=== PATIENT | female | born 1945 | race Caucasian/White ===

== ENCOUNTER → 2017-11-12 | Outpatient (REF) | payer MEDICARE, BC ==
[2017-11-14 09:33] LABS: HEPATITIS C VIRUS ABY INDEX 0.1 INDEX (<0.8)
== END ==
LOC: M LAB REF 11-13 17:30
DX: Z01.89 Encounter for other specified special examinations (principal)
CPT/HCPCS: 86803

== ENCOUNTER 2018-10-11 11:23 | Inpatient (IN) | payer MEDICARE, BC ==
[~2018-10-11] VITALS: Ht 167.6 cm; Wt 68.2 kg
[~2018-10-11 11:23] MED LIST: ENOXAPARIN 40 MG/0.4 ML SYRINGE (J1650) SC SCH
[2018-10-11] MEDS ORDERED: VITA500045 PO (11:43)
[2018-10-11] MEDS ORDERED: CELE1CAP7 PO (11:43)
[2018-10-11] MEDS ORDERED: IBAN150T6 PO (11:43)
[2018-10-11 12:48] LABS: HEMATOCRIT 41.6 % (36.0-47.0); HEMOGLOBIN 13.4 g/dl (12.0-15.5); MEAN CORPUSCULAR HEMOGLOBIN 31.1 pg (27.0-33.0); MEAN CORPUSCULAR HGB CONC 32.2 g/dl (32.0-36.5); MEAN CORPUSCULAR VOLUME 96.5 fl (80.0-96.0); PLATELET COUNT, AUTOMATED 236 10^3/uL (150-450); RED BLOOD COUNT 4.31 10^6/uL (4.00-5.40); WHITE BLOOD COUNT 14.1 10^3/uL (4.0-10.0)
--- NOTE | 2018-10-11 12:56 | REP ---
PELVIS AND LEFT HIP: AP view of the pelvis and AP and crosstable lateral views of the left hip are performed. There is a comminuted fracture of the proximal left femur in the intertrochanteric region. A separate lesser trochanter fragment is displaced somewhat medially. I see no other evidence of acute fracture or dislocation. Severe arthritic changes are seen at the right hip joint with space narrowing, subchondral sclerosis and spurring. There is more moderate degree of arthritic change at the left hip joint. Electronically Signed by Gopal Centeno MD 10/14/2018 01:02 P
[2018-10-11 12:57] LABS: INR 1.07; PROTHROMBIN TIME 13.6 SECONDS (11.8-14.0)
--- NOTE | 2018-10-11 12:57 | REP ---
CHEST, SINGLE VIEW: Single view of the chest is performed. There is mild cardiomegaly. There is mild calcification and tortuosity of the thoracic aorta. No acute infiltrate is seen. There is mild left base fibroatelectatic change. Electronically Signed by Gopal Centeno MD 10/14/2018 01:03 P
[2018-10-11 12:58] LABS: PARTIAL THROMBOPLASTIN TIME 27.8 SECONDS (25.0-38.4)
[2018-10-11 13:15] LABS: ALBUMIN 3.6 GM/DL (3.2-5.2); ALT/SGPT 21 U/L (12-78); BILIRUBIN,TOTAL 0.4 MG/DL (0.2-1.0); BLOOD UREA NITROGEN 10 MG/DL (7-18); CALCIUM LEVEL 8.8 MG/DL (8.8-10.2); CARBON DIOXIDE LEVEL 27 MEQ/L (21-32); CHLORIDE LEVEL 103 MEQ/L (98-107); CREATININE FOR GFR 0.55 MG/DL (0.55-1.30); GLOMERULAR FILTRATION RATE > 60.0 (>39); GLUCOSE, FASTING 114 MG/DL (70-100); SODIUM LEVEL 139 MEQ/L (136-145); TOTAL PROTEIN 6.7 GM/DL (6.4-8.2)
[2018-10-11] MEDS ORDERED: MORPHINE 2 MG/ML 1ML SYRINGE (J2270) IV PRN (13:15)
[2018-10-11] MEDS ORDERED: NS 1,000 ML IV SCH (13:15)
[2018-10-11 13:18] LABS: CK-MB VALUE MASS 1.7 NG/ML (<3.6); CPK CREATINE PHOSPHOKINASE 85 U/L (26-192); TROPONIN I < 0.02 NG/ML (< 0.10)
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
[2018-10-11] MEDS ORDERED: ACETAMINOPHEN TAB 650MG DOSE (2X325MG) PO PRN ×2 (14:30→22:00)
[2018-10-11] MEDS ORDERED: PERCOCET 5MG/325MG TAB PO PRN ×2 (14:30→21:30)
--- NOTE | 2018-10-11 14:31 | REP ---
LEFT FEMUR: Two views. HISTORY: Rule out fracture. FINDINGS: AP and lateral views of the mid and distal femur show no additional fracture in this patient with an intertrochanteric fracture of the proximal femur. IMPRESSION: The mid and distal femur are intact. Electronically Signed by Oswald Pedraza MD 10/11/2018 08:15 P
[2018-10-11] MEDS ORDERED: CENT1TAB PO (14:34)
[2018-10-11] MEDS ORDERED: GLUCTAB6 PO ×2 (14:34)
[2018-10-11] MEDS ORDERED: TYLE650T35 PO (14:34)
--- NOTE | 2018-10-11 14:59 | HPE ---
DATE OF ADMISSION: 10/11/2018 PRIMARY CARE PROVIDER: Dr. Eben Rincon UNIFORMER: Dr. Max Ramon, Orthopedics ATTENDING PHYSICIAN: Dr. Elizalde CHIEF COMPLAINT: Left hip pain after fall. HISTORY OF PRESENT ILLNESS: The patient is a 73-year-old white female without significant past medical history presented to the hospital for a fall. She had lost her balance. She fell in her driveway and then has horrible pain in her left hip. No syncope episode. In the emergency room (ER), she had x-ray done, which demonstrated she has a left hip fracture. Orthopedics was consulted in the ER and planned for surgery. Meanwhile, medicine service called for admission. REVIEW OF SYSTEMS: Denies fever. No chills. No headache. No blurred vision. No shortness of breath. No chest pain. No abdominal pain. No tingling, numbness, or weakness in the arms. All other systems reviewed, but negative. PAST MEDICAL HISTORY: 1. Arthritis. 2. Osteoporosis. PAST SURGICAL HISTORY: Dilation and curettage. ALLERGIES: NO KNOWN DRUG ALLERGIES. SOCIAL HISTORY: She smokes cigarettes half a pack a day for many years, which is ongoing. No alcohol abuse. No illicit drug abuse. She lives with at home. FAMILY HISTORY: Reviewed and noncontributory. MEDICATIONS: Reviewed. PHYSICAL EXAMINATION: VITAL SIGNS: Temperature 96.7. Heart rate 77. Respiratory rate 18. Blood pressure 168/77. Oxygen saturation 97% on room air. GENERAL: She is awake, alert, oriented times three. She is not in acute distress. HEENT: Atraumatic. Pupils equal, round, reactive to light. No jaundice. Extraocular muscles intact. Ears, nose, throat, mouth normal. NECK: No jugular venous distention (JVD). No bruits. LUNGS: Clear. No wheezing. No crackles. HEART: S1, S2. Regular. No murmur. ABDOMEN: Soft. Bowel sounds positive. Nontender. LOWER EXTREMITIES: No edema in bilateral lower extremities. She does have shortened and externally rotated left lower extremity. SKIN: No rash. NEUROLOGIC: Nonfocal. PSYCHOLOGIC: No acute psychosis. No agitation. DIAGNOSTIC AND LAB STUDIES (include the following): CBC and differential with WBC 14, hemoglobin and hematocrit 13.4/.41.6, platelets 236. Sodium 139, potassium 4.0, chloride 103, bicarbonate 27, BUN 10, creatinine 0.5, glucose 114, and PT/INR normal. X-rays reviewed showed a left hip fracture. IMPRESSION AND PLAN: This is a 73-year-old white female with no significant past medical history presents to the hospital with left hip pain after a fall. In the ER, x-ray demonstrated she had a left hip fracture. Dr. Ramon from orthopedic service consulted and plans for surgery. She will be on the medicine floor. Lovenox will be used for deep venous thrombosis (DVT) prophylaxis and will control her pain too.She is medically cleared for possible hip surgery. JERMAIN
[2018-10-11] MEDS ORDERED: fentaNYL 100 MCG/2 ML INJECTION (J3010) As Ordered ONE ×2 (19:18→21:24)
[2018-10-11] MEDS ORDERED: MIDAZOLAM INJ 2 MG/2 ML VIAL (J2250) As Ordered ONE (19:18)
[2018-10-11] MEDS ORDERED: KETAMINE HCL 200 MG/20 ML VIAL As Ordered ONE (19:18)
[2018-10-11] MEDS ORDERED: LIDOCAINE 2% INJ 100 MG/5 ML SDV (FOR ANES.) As Ordered ONE (19:19)
[2018-10-11] MEDS ORDERED: ONDANSETRON 4MG/2ML VIAL (J2405) As Ordered ONE (19:19)
[2018-10-11] MEDS ORDERED: PROPOFOL 200 MG/20 ML VIAL As Ordered ONE ×2 (19:19→20:43)
[2018-10-11] MEDS ORDERED: ceFAZolin 2 GM/D5W 50 ML IV BAG (J0690 PER 500MG) As Ordered ONE (19:37)
[2018-10-11] MEDS ORDERED: ceFAZolin 1GM INJ (J0690 PER 500MG) As Ordered ONE (19:54)
--- NOTE | 2018-10-11 20:38 | ECGEPIP ---
[facility] - ED Test Date: 2018-10-11 Pat Name: LALO TONY Department: Room: - Gender: Female Investigations Director: PMO : 1945 Requested By: NILSON Vargas Order Number: [id number] Reading MD: Raad Mckeon Measurements Intervals [place]ock Rate: 80 P: 66 UT: 149 QRS: QRSD: 82 T: 40 QT: 375 QTc: 435 Interpretive Statements SINUS RHYTHM LEFTWARD AXIS NONSPECIFIC ST T WAVE CHANGES POOR R WAVE PROGRESSION BASELINE ARTIFACT MAY AFFECT READING NO PRIOR ECG FOR COMPARISON Electronically Signed on 10-11-2018 20:38:39 EDT by Raad Mckeon
[2018-10-11] MEDS ORDERED: DOCUSATE SODIUM 100 MG CAP PO SCH (21:00)
[2018-10-11] MEDS: fentaNYL 100 MCG/2 ML INJECTION (J3010) IV PRN ×4 (21:25→21:41)
[2018-10-11] MEDS ORDERED: ONDANSETRON 4MG/2ML VIAL (J2405) IV PRN ×2 (21:30→22:15)
[2018-10-11] MEDS ORDERED: LR 1,000 ML IV SCH (21:30)
[2018-10-11] MEDS ORDERED: HYDROMORPHONE HCL 0.5 MG/ 0.5 ML SYRINGE (J1170 PER 1) IV PRN (21:30)
[2018-10-11] MEDS ORDERED: METOCLOPRAMIDE INJ 10MG/2ML VIAL (J2765) IV PRN (21:30)
[2018-10-11] MEDS ORDERED: HYDROMORPHONE HCL 0.5 MG/ 0.5 ML SYRINGE (J1170 PER 1) As Ordered ONE (21:39)
[2018-10-11] MEDS ORDERED: FLEET ENEMA PR PRN (22:00)
[2018-10-11] MEDS ORDERED: NORCO, ANEXSIA 5/325MG TABLET (HYDROcodone/ACETAMINOPHEN) PO PRN (22:15)
[2018-10-11] MEDS ORDERED: MORPHINE 4 MG/ML 1ML VIAL/SYRINGE (J2270) IV PRN ×2 (22:15)
[2018-10-11 23:00] VITALS: BP 156/79
[2018-10-12] MEDS: LR 1,000 ML IV SCH ×2 (00:18→11:20)
[2018-10-12 01:35] VITALS: BP 156/82
[2018-10-12 02:36] VITALS: BP 147/78
[2018-10-12 03:16] VITALS: BP 142/79
[2018-10-12 05:55] VITALS: BP 127/65
[2018-10-12] MEDS ORDERED: traMADol 50 MG TAB PO PRN (06:15)
[2018-10-12] MEDS ORDERED: KETOROLAC 30 MG/ML VIAL (J1885) IV PRN (06:15)
[2018-10-12] MEDS: METOCLOPRAMIDE 5 MG TAB PO SCH ×4 (06:33→21:50)
[2018-10-12 06:44] LABS: HEMATOCRIT 31.5 % (36.0-47.0); MEAN CORPUSCULAR VOLUME 93.8 fl (80.0-96.0); PLATELET COUNT, AUTOMATED 195 10^3/uL (150-450); RED BLOOD COUNT 3.36 10^6/uL (4.00-5.40); WHITE BLOOD COUNT 14.9 10^3/uL (4.0-10.0)
[2018-10-12 06:48] LABS: HEMOGLOBIN 10.4 g/dl (12.0-15.5)
[2018-10-12 07:16] LABS: ALT/SGPT 19 U/L (12-78); BILIRUBIN,TOTAL 0.7 MG/DL (0.2-1.0); BLOOD UREA NITROGEN 10 MG/DL (7-18); CALCIUM LEVEL 7.7 MG/DL (8.8-10.2); CARBON DIOXIDE LEVEL 24 MEQ/L (21-32); CHLORIDE LEVEL 102 MEQ/L (98-107); CREATININE FOR GFR 0.48 MG/DL (0.55-1.30); GLOMERULAR FILTRATION RATE > 60.0 (>39); GLUCOSE, FASTING 139 MG/DL (70-100); POTASSIUM SERUM 4.1 MEQ/L (3.5-5.1); SODIUM LEVEL 135 MEQ/L (136-145)
--- NOTE | 2018-10-12 08:39 | IPN ---
DATE: 10/12/2018 Patient seen and examined this morning. She seems to be doing reasonably well. She is a smoker a pack to half a pack a day she says. I explained her that this will significantly impacts the healing and significantly increase the chances of it not healing and going onto a nonunion and requiring further surgeries. I explained her that the smoking disrupts the small blood vessels that provide healing to the bone. She is well aware of this.
--- NOTE | 2018-10-12 08:48 | IPNPDOC ---
Date Seen The patient was seen on 10/12/18. Progress Note SUBJECTIVE: 73 y female fall at home and has left hip fracture underwent for surgery yesterday doing well no events overnight Review of systems no fever no chills no chest pain no abdominal pain +left hip pain OBJECTIVE PHYSICAL EXAMINATION: VITAL SIGNS: Please see below. GENERAL: AA ox3 HEENT: atraumatic CARDIOVASCULAR: s1s2 regular no murmur RESPIRATORY: clear ABDOMINAL: soft BS+ non tender EXTREMITIES: no edema, left hip surgery wound dressing clear and dry NEUROLOGICAL: non focal PSYCHOLOGICAL: no agitation LABORATORY DATA, IMAGING STUDIES, MICROBIOLOGY: Please see below. DVT prophylaxis ordered?: yes ASSESSMENT AND PLAN: left hip fracture due to fall s/p day #1 ORIF pain control PT DVT prophylaxis Ortho following VS, I&O, 24H, Fishbone Vital Signs/I&O Vital Signs Date Time Temp Pulse Resp B/P (MAP) Pulse Ox O2 Delivery O2 Flow Rate FiO2 10/12/18 05:55 97.3 72 18 127/65 (85) 91 10/12/18 01:35 2.0 10/11/18 11:23 Room Air I&O- Last 24 Hours up to 6 AM 10/12/18 06:00 Intake Total 800 ml Output Total 950 ml Balance -150 ml Laboratory Data 24H LABS Laboratory Tests 2 10/11/18 12:15: Nucleated Red Blood Cells % (auto) 0.0, Prothrombin Time 13.6, Prothromb Time International Ratio 1.07, Activated Partial Thromboplast Time 27.8, Anion Gap 9, Glomerular Filtration Rate > 60.0, Blood Urea Nitrogen 10, Creatinine 0.55, Sodium Level 139, Potassium Level 4.0, Chloride Level 103, Carbon Dioxide Level 27, Calcium Level 8.8, Aspartate Amino Transf (AST/SGOT) 22, Alanine Aminotransferase (ALT/SGPT) 21, Alkaline Phosphatase 78, Total Bilirubin 0.4, Total Protein 6.7, Albumin 3.6, Albumin/Globulin Ratio 1.16 10/11/18 12:16: Total Creatine Kinase 85, Creatine Kinase MB 1.7, Creatine Kinase MB Relative Index 2.00, Troponin I < 0.02 10/12/18 06:05: Nucleated Red Blood Cells % (auto) 0.0, Anion Gap 9, Glomerular Filtration Rate > 60.0, Blood Urea Nitrogen 10, Creatinine 0.48L, Sodium Level 135L, Potassium Level 4.1, Chloride Level 102, Carbon Dioxide Level 24, Calcium Level 7.7L, Aspartate Amino Transf (AST/SGOT) 24, Alanine Aminotransferase (ALT/SGPT) 19, Alkaline Phosphatase 63, Total Bilirubin 0.7#, Total Protein 6.0L, Albumin 3.0L, Albumin/Globulin Ratio 1.00 CBC/BMP Laboratory Tests 10/11/18 12:15 Red Blood Count 4.31, Mean Corpuscular Volume 96.5 H, Mean Corpuscular Hemoglobin 31.1, Mean Corpuscular Hemoglobin Concent 32.2, Red Cell Distribution Width 12.4, Calcium Level 8.8, Aspartate Amino Transf (AST/SGOT) 22, Alanine Aminotransferase (ALT/SGPT) 21, Alkaline Phosphatase 78, Total Bilirubin 0.4, Total Protein 6.7, Albumin 3.6 10/12/18 06:05 Red Blood Count 3.36 L, Mean Corpuscular Volume 93.8, Mean Corpuscular Hemoglobin 31.0, Mean Corpuscular Hemoglobin Concent 33.0, Red Cell Distribution Width 12.4, Calcium Level 7.7 L, Aspartate Amino Transf (AST/SGOT) 24, Alanine Aminotransferase (ALT/SGPT) 19, Alkaline Phosphatase 63, Total Bilirubin 0.7 #, Total Protein 6.0 L, Albumin 3.0 L CHRISTINA TOBIAS MD Oct 12, 2018 08:48
[2018-10-12] MEDS: MOM 30ML SUSPENSION UDC PO SCH (08:59)
[2018-10-12] MEDS: BISACODYL 10 MG SUPP PR SCH ×2 (09:00→21:00)
[2018-10-12] MEDS: MIRALAX *UNIT DOSE* 17GM PACKET PO SCH (09:00)
[2018-10-12] MEDS: traMADol 50 MG TAB PO PRN ×3 (09:01→21:51)
--- NOTE | 2018-10-12 09:21 | REP ---
Left hip: Two views obtained portably. History: Status post pinning. Comparison is made with earlier radiographs showing a comminuted intertrochanteric fracture. Findings: A femoral pin fixation device is seen across the intertrochanteric fracture holding it in good alignment. There are osteoarthritic changes at the hip. Periarticular soft tissue swelling and emphysema is seen. Lateral skin tr are noted. Impression: Status post open reduction internal fixation left hip fracture. Electronically Signed by Oswald Pedraza MD 10/12/2018 12:02 P
--- NOTE | 2018-10-12 09:48 | REP ---
Left hip: Four views. History: Open reduction internal fixation. Findings: A sequence of four fluoroscopically obtained intraprocedural spot radiographs document open reduction internal fixation procedure. 1 minute 30 seconds of fluoroscopy time is reported. Electronically Signed by Oswald Pedraza MD 10/12/2018 12:04 P
[2018-10-12 14:44] VITALS: BP 113/61
[2018-10-12] MEDS: RIVAROXABAN 10 MG TAB (XARELTO) PO SCH (17:18)
[2018-10-12 22:00] VITALS: BP 120/66
[2018-10-13] MEDS: LR 1,000 ML IV SCH (00:40)
[2018-10-13] MEDS: traMADol 50 MG TAB PO PRN ×3 (05:42→20:53)
[2018-10-13 06:00] VITALS: BP 134/61
[2018-10-13 07:20] LABS: HEMATOCRIT 27.5 % (36.0-47.0); MEAN CORPUSCULAR HEMOGLOBIN 31.7 pg (27.0-33.0); MEAN CORPUSCULAR HGB CONC 32.7 g/dl (32.0-36.5); MEAN CORPUSCULAR VOLUME 96.8 fl (80.0-96.0); PLATELET COUNT, AUTOMATED 160 10^3/uL (150-450); RED BLOOD COUNT 2.84 10^6/uL (4.00-5.40); WHITE BLOOD COUNT 11.8 10^3/uL (4.0-10.0)
[2018-10-13] MEDS: MIRALAX *UNIT DOSE* 17GM PACKET PO SCH (09:00)
[2018-10-13] MEDS: MOM 30ML SUSPENSION UDC PO SCH (09:00)
[2018-10-13] MEDS: BISACODYL 10 MG SUPP PR SCH ×2 (09:00→20:53)
[2018-10-13] MEDS: METOCLOPRAMIDE 5 MG TAB PO SCH ×4 (09:03→20:53)
--- NOTE | 2018-10-13 10:53 | IPNPDOC ---
Date Seen The patient was seen on 10/13/18. Progress Note SUBJECTIVE: 73 y female fall at home and has left hip fracture underwent for surgery 10/11 doing well no events overnight Review of systems no fever no chills no chest pain no abdominal pain no diarrhea OBJECTIVE PHYSICAL EXAMINATION: VITAL SIGNS: Please see below. GENERAL: AA ox3; she is working with PT in hr room HEENT: atraumatic CARDIOVASCULAR: s1s2 regular no murmur RESPIRATORY: clear ABDOMINAL: soft BS+ non tender EXTREMITIES: no edema, left hip surgery wound dressing clear and dry NEUROLOGICAL: non focal PSYCHOLOGICAL: no agitation LABORATORY DATA, IMAGING STUDIES, MICROBIOLOGY: Please see below. DVT prophylaxis ordered?: yes ASSESSMENT AND PLAN: left hip fracture due to fall s/p day #2 ORIF pain control PT DVT prophylaxis Ortho following she may go to rehab Saturday 10/14 VS, I&O, 24H, Fishbone Vital Signs/I&O Vital Signs Date Time Temp Pulse Resp B/P (MAP) Pulse Ox O2 Delivery O2 Flow Rate FiO2 10/13/18 06:12 16 10/13/18 06:00 99.6 91 134/61 (85) 92 10/12/18 07:45 2.0 10/11/18 11:23 Room Air I&O- Last 24 Hours up to 6 AM 10/13/18 05:59 Intake Total 1140 ml Output Total 2050 ml Balance -910 ml Laboratory Data 24H LABS Laboratory Tests 2 10/13/18 06:05: Nucleated Red Blood Cells % (auto) 0.0 CBC/BMP Laboratory Tests 10/13/18 06:05 Red Blood Count 2.84 L, Mean Corpuscular Volume 96.8 H, Mean Corpuscular Hemoglobin 31.7, Mean Corpuscular Hemoglobin Concent 32.7, Red Cell Distribution Width 12.5 CHRISTINA TOBIAS MD Oct 13, 2018 10:53
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
[2018-10-13 14:00] VITALS: BP 130/62
[2018-10-13] MEDS: RIVAROXABAN 10 MG TAB (XARELTO) PO SCH (17:10)
[2018-10-13 22:00] VITALS: BP 127/66
[2018-10-14 06:00] VITALS: BP 121/65
[2018-10-14 07:07] LABS: HEMATOCRIT 25.8 % (36.0-47.0); HEMOGLOBIN 8.6 g/dl (12.0-15.5); MEAN CORPUSCULAR HEMOGLOBIN 31.3 pg (27.0-33.0); MEAN CORPUSCULAR HGB CONC 33.3 g/dl (32.0-36.5); MEAN CORPUSCULAR VOLUME 93.8 fl (80.0-96.0); PLATELET COUNT, AUTOMATED 171 10^3/uL (150-450); RED BLOOD COUNT 2.75 10^6/uL (4.00-5.40); WHITE BLOOD COUNT 10.9 10^3/uL (4.0-10.0)
[2018-10-14] MEDS: METOCLOPRAMIDE 5 MG TAB PO SCH (07:30)
[2018-10-14] MEDS ORDERED: PERC5TAB12 PO (08:15)
[2018-10-14] MEDS ORDERED: XARE10TA PO (08:15)
--- NOTE | 2018-10-14 08:43 | IPN ---
DATE: 10/14/2018 Sari is seen on 5 felix while rounding for the hospitalist. She is status post left hip fracture underwent left open reduction, internal fixation (ORIF) on 10/11/2018. She has been medically stable. Medical history was significant only for some arthritis and osteoporosis. PHYSICAL EXAM: Vital signs stable, 121/65. Lungs: Clear. Heart: Regular rate and rhythm. Abdomen: Soft, nontender. No peripheral edema. LABS: White count 10.9, hemoglobin 8.6, which is fairly stable, platelets are 170. IMPRESSION: Patient is medically stable status post ORIF for left hip fracture. First consideration of her going to short-term rehab, which we will discuss at case management today.
[2018-10-14] MEDS: MIRALAX *UNIT DOSE* 17GM PACKET PO SCH (09:00)
[2018-10-14] MEDS: BISACODYL 10 MG SUPP PR SCH (09:00)
[2018-10-14] MEDS: MOM 30ML SUSPENSION UDC PO SCH (09:30)
[2018-10-14] MEDS: traMADol 50 MG TAB PO PRN (09:31)
--- NOTE | 2018-10-14 10:42 | DSES ---
DATE OF ADMISSION: 10/11/2018 DATE OF DISCHARGE: DISCHARGE DIAGNOSIS: Left hip fracture status post open reduction internal fixation (ORIF). SECONDARY DIAGNOSES: Acute blood loss anemia secondary to fracture. HISTORY: The patient fell and fractured her left hip. HOSPITAL COURSE: The patient was admitted under the hospitalist service and underwent ORIF on 10/11/2018. Hospital course was uncomplicated. Her hemoglobin 8.6, probably from bleeding around the fracture. Did not require subcutaneous transfusion. DISPOSITION: She is transferred to the acute rehabilitation unit (ARU) and Tylenol as needed, vitamin D 50,000 units weekly, glucosamine daily, Ibandronate 150 mg monthly. She is on Xarelto 10 mg daily for a month, Percocet as needed, Tylenol as needed. Diet as tolerated. Activity as tolerated per orthopedics. No pending labs.
== END 2018-10-14 11:40 | DRG 481 ==
LOC: M ED 11:23 → M ED INP 14:28 → M MS5PR 22:50
PROVIDERS: ADMIT Hospitalist; ATTEND Family Medicine
PROC: 0QS706Z Reposition Left Upper Femur with Intramedullary Internal Fixation Device, Open Approach (ICD-10-PCS; principal; 2018-10-11 18:45)
DX: S72.142A Displaced intertrochanteric fracture of left femur, initial encounter for closed fracture (principal); D62 Acute posthemorrhagic anemia; F17.210 Nicotine dependence, cigarettes, uncomplicated; M81.0 Age-related osteoporosis without current pathological fracture; V03.10XA Pedestrian on foot injured in collision with car, pick-up truck or van in traffic accident, initial encounter; Y92.014 Private driveway to single-family (private) house as the place of occurrence of the external cause; Z79.899 Other long term (current) drug therapy

== ENCOUNTER 2018-10-14 10:07 | Inpatient (IN) | payer MEDICARE, BC ==
[~2018-10-14] VITALS: Ht 170.2 cm; Wt 67.8 kg
[~2018-10-14 10:07] MED LIST changes: +CELE1CAP7 PO; +CENT1TAB PO; -ENOXAPARIN 40 MG/0.4 ML SYRINGE (J1650) SC SCH; +GLUCTAB6 PO; +IBAN150T6 PO; +PERC5TAB12 PO; +TYLE650T35 PO; +VITA500045 PO; +XARE10TA PO
--- NOTE | 2018-10-14 11:01 | HPEPDOC ---
Application Helper Note DATE OF ADMISSION: 10/14/18 SOURCE OF ADMISSION INFORMATION: patient and [facility] records CHIEF COMPLAINT: left hip fracture HISTORY OF PRESENT ILLNESS: 73F F pmh osteoporosis and osteoarthritis who fell because her was backing up in the driveway, inadvertently hit her and she fell onto her left side presented to [facility] ED on October 11, 2018 complaining of pain and difficulty walking. She denied pre-syncopal symptoms. Pelvic X-ray revealed, There is a comminuted fracture of the proximal left femur in the intertrochanteric region. A separate lesser trochanter fragment is displaced somewhat medially. Chest x- ray showed no acute infiltrate and a mild left base fibroatelectatic change.She was evaluated by orthopedics who performed an ORIF on October 11, 2018 with femoral pin fixation. Given her fracture was comminuted she was made partial weight bearing. She had leukocytosis during her inpatient stay and a drop in her hemoglobin from 13.4 pre-op to 8.6 on POD#3. She was evaluated by therapy and found to require assistance with ambulation and functional transfers in addition to ADL management well below her prior level of function. She was deemed medically appropriate for discharge to ARU on 10/14/18. REVIEW OF SYSTEMS: The following is a completed review of systems and has been reviewed. Review of systems otherwise unremarkable. PAIN: Patient self reports left hip pain EYES: No recent vision changes EARS, NOSE, & THROAT: No throat pain, or dysphagia, or rhinorrhea CARDIOVASCULAR: Denies chest pain or palpitations PULMONARY: Denies shortness of breath GASTROINTESTINAL: Denies constipation/diarrhea GENITOURINARY: denies dysuria MUSCULOSKELETAL: LLE weakness NEUROLOGICAL: no tremors or seizure-like activity HEMATOLOGICAL: +anemia SKIN: left hip incision PSYCHIATRIC: Unremarkable All other review of systems found to be negative. PAST MEDICAL HISTORY: as per HPI PAST SURGICAL HISTORY: D&C ALLERGIES: Please see below. MEDICATIONS: Please see below. FAMILY HISTORY: does not pertain to current medical problem SOCIAL HISTORY: +1/2 pack a day smoker, no etoh abuse or illicit drugs, lives with DIET: regular PHYSICAL EXAMINATION: VITAL SIGNS: Please see below. GENERAL: Pleasant and cooperative. No acute distress. HEENT: PERRL. Extraocular movements intact. Clear conjunctiva CARDIOVASCULAR: Regular rate and rhythm. No murmurs, rubs, or gallops LUNGS: Clear to auscultation bilaterally. No wheezes. No rhonchi ABDOMEN: Soft, nontender, nondistended. Positive bowel sounds. Normal active bowel sounds NEUROLOGICAL: Alert and oriented times three. Cranial nerves II through XII grossly intact. Sensation grossly intact EXTREMITIES:5\5 strength bilateral upper extremities. 5\5 strength right lower extremity. 5/5 strength in left ankle Dr and EHL, limited due to recent surgery left heel TTP without skin changes SKIN: left hip incision without induration, mild swelling and erythema LABORATORY DATA: Please see below. IMAGING:Imaging documentation personally reviewed by record FUNCTIONAL STATUS: Premorbid: Independent with all activities of daily life as well as mobility On Admission: Contact guard 30 feet with RW, min assist for functional transfers, requiring assistance with lower body dressing and bed mobility GOALS: Mod-I with RW for community distances, uneven terrain, stairs, bathing, dressing, toileting, medical optimization, assess for DMEs. ASSESSMENT:73-year-old F with past medical history of osteoporosis who presents status post fall with left hip fracture PLAN: 1. Rehab: PT- strengthen bilat LE, improve balance and coordination- PWB to LLE, OT- teach adaptive equipment use for bathing, dressing, strengthen bilat UE and maintain shoulder ROM 2. Ortho: s/p fall with left commuinuted femur fracture- PWB, will consult ortho 3. Neuro: stable, avoid deliriogenic meds 4. Cardiac: no known hx, medicine consulted to assist with management 5. Resp: encourage incentive spirometry, current smoker, monitor for infection 6. DVT ppx: Xarelto 7. Pain: significant post-op pain, c/u oxycodone and tylenol, lidoderm patch to corey of left heel 8. : monitor PVRs 9. Skin: dressing changes, monitor for skin breakdown 10. Heme: post-op anemia, transfuse if <8, will check FOBT 11. GI ppx: will add protonix 12. Dispo: TBD POST ADMISSION PHYSICIAN EVALUATION: Medical and functional status: Description of medical status, medical assessment: As above. Rehabilitation diagnosis and current and prior cold morbid medical conditions as above. Risk of complications and plans to mitigate them as above. Description of functional status current status is as above. Prior status as above. Status compared to preadmission: There are no clinically significant differences between the patient's current status and the information described on the preadmission screening document. Treatment plan anticipated: Treatment plan is as described above. Required disciplines including physical therapy, occupational therapy, others as noted above. Intensity of services: 3 hours a day, 6 days a week. Special considerations: There are no specific special or safety considerations that would likely preclude immediate implementation of an intensive rehabilitation program or subsequently influence the plan of care ATTESTATION: Considering all the information above, it is my best judgment that this patient requires intensive rehabilitation therapy as described above and an inpatient hospital environment due to the complexity of nursing, medical, and rehabilitation needs required by the patient. Furthermore, this patient can reasonably be expected to participate in an benefit from an inpatient rehabilitation stay with an interdisciplinary team approach to the delivery of rehabilitation care under the direction and supervision of rehabilitation physician. PROGNOSIS: Excellent ESTIMATED LENGTH OF STAY:10-12 days. PROJECTED DISCHARGE DESTINATION: Home with family support and any durable medical equipment required to increase functional safety and mobility TIME SPENT COUNSELING AND COORDINATING INITIAL CARE: Greater than 70 minutes. Vital Signs Vital Signs Date Time Temp Pulse Resp B/P (MAP) Pulse Ox O2 Delivery O2 Flow Rate FiO2 10/14/18 11:40 98.9 76 18 138/71 (93) 94 Home Medications Scheduled Acetaminophen (Tylenol Arthritis) 650 Mg Tablet.er, 650 MG PO QHS, (Reported) Ergocalciferol (Vitamin D2) (Vitamin D2) 50,000 Unit Capsule, 50,000 UNIT PO QWEEK, (Reported) SUNDAYS Gluc Ibanez/Chondro Ibanez A/Vit C/Mn (Glucosamine Chondroitin Tab) 1 Each Tablet, 4 TAB PO QAM, (Reported) Gluc Ibanez/Chondro Ibanez A/Vit C/Mn (Glucosamine Chondroitin Tab) 1 Each Tablet, 3 TAB PO QPM, (Reported) Ibandronate Sodium (Ibandronate Sodium) 150 Mg Tablet, 150 MG PO QMONTH, (Reported) TAKES THE 1ST OF THE MONTH Multivit-Min/FA/Lycopen/Lutein (Centrum Silver Tablet) 1 Each Tablet, 1 TAB PO DAILY, (Reported) Rivaroxaban (Xarelto) 10 Mg Tablet, 10 MG PO DAILY Scheduled PRN Oxycodone HCl/Acetaminophen (Percocet 5-325 mg Tablet) 1 Each Tablet, 1 TAB PO Q4H PRN for PAIN Allergies Coded Allergies: No Known Allergies (Unverified , 7/12/19) A-FIB/CHADSVASC A-FIB History Current/History of A-Fib/PAF?: No KARYN ASH MD Oct 14, 2018 11:01
[2018-10-14] MEDS ORDERED: ONDANSETRON 4 MG TAB (S0181) PO PRN (11:15)
[2018-10-14] MEDS ORDERED: BISACODYL 5 MG TAB PO PRN (11:15)
[2018-10-14 11:40] VITALS: BP 138/71
[2018-10-14] MEDS: FERROUS GLUCONATE 324 MG TAB PO SCH ×2 (12:43→20:05)
[2018-10-14] MEDS: DOCUSATE SODIUM 100 MG CAP PO SCH ×2 (12:43→20:05)
[2018-10-14] MEDS: PANTOPRAZOLE 40MG TAB (PROTONIX) PO SCH (12:43)
[2018-10-14 14:00] VITALS: BP 146/75
[2018-10-14] MEDS: RIVAROXABAN 10 MG TAB (XARELTO) PO SCH (17:09)
[2018-10-14] MEDS: ACETAMINOPHEN 500 MG TAB PO SCH ×2 (17:09→20:06)
[2018-10-14 20:00] VITALS: BP 148/66
[2018-10-14] MEDS: SENNA 8.6 MG TAB (SENOKOT) PO SCH (20:05)
[2018-10-14] MEDS: LIDOCAINE 5% (LIDODERM) PATCH TD SCH (20:05)
[2018-10-15 06:00] VITALS: BP 121/65
[2018-10-15 06:36] LABS: BASO % 0.3 % (0.0-1.0); EOS # 0.2 10^3/uL (0.0-0.50); EOS % 1.6 % (0.0-3.0); HEMATOCRIT 27.4 % (36.0-47.0); HEMOGLOBIN 8.9 g/dl (12.0-15.5); LYMPH # 1.9 10^3/uL (1.5-4.5); LYMPH % 20.4 % (24.0-44.0); MEAN CORPUSCULAR HEMOGLOBIN 31.7 pg (27.0-33.0); MEAN CORPUSCULAR HGB CONC 32.5 g/dl (32.0-36.5); MEAN CORPUSCULAR VOLUME 97.5 fl (80.0-96.0); MONO # 1.1 10^3/uL (0.0-0.8); MONO % 11.2 % (0.0-5.0); NEUTROPHILS # 6.2 10^3/uL (1.8-7.7); NEUTROPHILS % 66.2 % (36.0-66.0); PLATELET COUNT, AUTOMATED 213 10^3/uL (150-450); RED BLOOD COUNT 2.81 10^6/uL (4.00-5.40); WHITE BLOOD COUNT 9.4 10^3/uL (4.0-10.0)
[2018-10-15 07:09] LABS: ALBUMIN 2.5 GM/DL (3.2-5.2); ALT/SGPT 23 U/L (12-78); BILIRUBIN,TOTAL 0.8 MG/DL (0.2-1.0); BLOOD UREA NITROGEN 8 MG/DL (7-18); CALCIUM LEVEL 8.4 MG/DL (8.8-10.2); CARBON DIOXIDE LEVEL 35 MEQ/L (21-32); CHLORIDE LEVEL 104 MEQ/L (98-107); GLOMERULAR FILTRATION RATE > 60.0 (>39); GLUCOSE, FASTING 91 MG/DL (70-100); POTASSIUM SERUM 3.7 MEQ/L (3.5-5.1); SODIUM LEVEL 140 MEQ/L (136-145); TOTAL PROTEIN 5.8 GM/DL (6.4-8.2)
[2018-10-15] MEDS: DOCUSATE SODIUM 100 MG CAP PO SCH ×2 (09:21→20:56)
[2018-10-15] MEDS: FERROUS GLUCONATE 324 MG TAB PO SCH ×2 (09:21→20:56)
[2018-10-15] MEDS: PANTOPRAZOLE 40MG TAB (PROTONIX) PO SCH (09:21)
[2018-10-15] MEDS: ACETAMINOPHEN 500 MG TAB PO SCH ×3 (09:22→20:57)
[2018-10-15] MEDS: oxyCODONE 5MG TAB PO PRN (09:23)
[2018-10-15] MEDS: **NOTE PATIENT COMMENT** MISC XX SCH (09:25)
--- NOTE | 2018-10-15 10:13 | IPNPDOC ---
PM&R Progress Note DATE OF SERVICE: Oct 15, 2018 Coil Tier Progress Note SUbjective: Patient seen walking in OT, stating her pain is well controlled at this time. REVIEW OF SYSTEMS: The following is a completed review of systems and has been reviewed. Review of systems otherwise unremarkable. PAIN: Patient self reports left hip pain EYES: No recent vision changes EARS, NOSE, & THROAT: No throat pain, or dysphagia, or rhinorrhea CARDIOVASCULAR: Denies chest pain or palpitations PULMONARY: Denies shortness of breath GASTROINTESTINAL: Denies constipation/diarrhea GENITOURINARY: denies dysuria MUSCULOSKELETAL: LLE weakness NEUROLOGICAL: no tremors or seizure-like activity HEMATOLOGICAL: +anemia SKIN: left hip incision PSYCHIATRIC: Unremarkable All other review of systems found to be negative. PHYSICAL EXAMINATION: VITAL SIGNS: Please see below. GENERAL: Pleasant and cooperative. No acute distress. HEENT: PERRL. Extraocular movements intact. Clear conjunctiva CARDIOVASCULAR: Regular rate and rhythm. No murmurs, rubs, or gallops LUNGS: Clear to auscultation bilaterally. No wheezes. No rhonchi ABDOMEN: Soft, nontender, nondistended. Positive bowel sounds. Normal active bowel sounds NEUROLOGICAL: Alert and oriented times three. Cranial nerves II through XII grossly intact. Sensation grossly intact EXTREMITIES:5\5 strength bilateral upper extremities. 5\5 strength right lower extremity. 5/5 strength in left ankle Dr and EHL, limited due to recent surgery left heel TTP without skin changes SKIN: left hip incision without induration, mild swelling and erythema ASSESSMENT:73-year-old F with past medical history of osteoporosis who presents status post fall with left hip fracture PLAN: 1. Rehab: PT- strengthen bilat LE, improve balance and coordination- PWB to LLE, OT- teach adaptive equipment use for bathing, dressing, strengthen bilat UE and maintain shoulder ROM 2. Ortho: s/p fall with left comminuted femur fracture- PWB, will consult ortho 3. Neuro: stable, avoid deliriogenic meds 4. Cardiac: no known hx, medicine consulted to assist with management 5. Resp: encourage incentive spirometry, current smoker, monitor for infection 6. DVT ppx: Xarelto 7. Pain: significant post-op pain, c/u oxycodone and tylenol, lidoderm patch to corey of left heel 8. : monitor PVRs 9. Skin: dressing changes, monitor for skin breakdown 10. Heme: post-op anemia, transfuse if <8, will check FOBT 11. GI ppx: continue protonix 12. Dispo: TBD Allergies Coded Allergies: No Known Allergies (Unverified , 10/11/18) Vital Signs Vital Signs Date Time Temp Pulse Resp B/P (MAP) Pulse Ox O2 Delivery O2 Flow Rate FiO2 10/15/18 09:23 18 10/15/18 06:00 98.4 73 121/65 (83) 94 Laboratory Data CBC/BMP Laboratory Tests 10/15/18 05:58 Red Blood Count 2.81 L, Mean Corpuscular Volume 97.5 H, Mean Corpuscular Hemoglobin 31.7, Mean Corpuscular Hemoglobin Concent 32.5, Red Cell Distribution Width 12.7, Neutrophils (%) (Auto) 66.2 H, Lymphocytes (%) (Auto) 20.4 L, Monocytes (%) (Auto) 11.2 H, Eosinophils (%) (Auto) 1.6, Basophils (%) (Auto) 0.3, Neutrophils # (Auto) 6.2, Lymphocytes # (Auto) 1.9, Monocytes # (Auto) 1.1 H, Eosinophils # (Auto) 0.2, Basophils # (Auto) 0.0, Calcium Level 8.4 L, Aspartate Amino Transf (AST/SGOT) 28, Alanine Aminotransferase (ALT/SGPT) 23, Alkaline Phosphatase 58, Total Bilirubin 0.8, Total Protein 5.8 L, Albumin 2.5 L Labs 24H Laboratory Tests 2 10/15/18 05:58: Immature Granulocyte % (Auto) 0.3, White Blood Count 9.4, Red Blood Count 2.81L, Hemoglobin 8.9L, Hematocrit 27.4L, Mean Corpuscular Volume 97.5H, Mean Corpuscular Hemoglobin 31.7, Mean Corpuscular Hemoglobin Concent 32.5, Red Cell Distribution Width 12.7, Platelet Count 213, Neutrophils (%) (Auto) 66.2H, Lymphocytes (%) (Auto) 20.4L, Monocytes (%) (Auto) 11.2H, Eosinophils (%) (Auto) 1.6, Basophils (%) (Auto) 0.3, Neutrophils # (Auto) 6.2, Lymphocytes # (Auto) 1.9, Monocytes # (Auto) 1.1H, Eosinophils # (Auto) 0.2, Basophils # (Auto) 0.0, Nucleated Red Blood Cells % (auto) 0.0, Anion Gap 1L, Glomerular Filtration Rate > 60.0, Blood Urea Nitrogen 8, Creatinine 0.40L, Sodium Level 140, Potassium Level 3.7, Chloride Level 104, Carbon Dioxide Level 35H, Calcium Level 8.4L, Aspartate Amino Transf (AST/SGOT) 28, Alanine Aminotransferase (ALT/SGPT) 23, Alkaline Phosphatase 58, Total Bilirubin 0.8, Total Protein 5.8L, Albumin 2.5L, Albumin/Globulin Ratio 0.76L Current Medications Current Medications Current Medications Acetaminophen (Tylenol Tab) 1,000 mg TID PO Last administered on 10/15/18 09:22; Start 10/14/18 at 16:00 Bisacodyl (Dulcolax Tab) 5 mg DAILYPRN PRN PO CONSTIPATION Last administered on 10/15/18 09:23; Start 10/14/18 at 11:15 Docusate Sodium (Colace) 100 mg BID PO Last administered on 10/15/18 09:21; Start 10/14/18 at 09:00 Ferrous Gluconate (Fergon) 324 mg BID PO Last administered on 10/15/18 09:21; Start 10/14/18 at 09:00 Lidocaine (Lidoderm Patch) 1 patch QHS TD Last administered on 10/14/18 20:05; Start 10/14/18 at 21:00 Non-Formulary Medication ( See Comment Field Below ) REMOVE LIDODERM PATCH DAILY XX Last administered on 10/15/18 09:25; Start 10/15/18 at 09:00 Ondansetron HCl (Zofran) 4 mg Q6HP PRN PO NAUSEA; Start 10/14/18 at 11:15 Oxycodone HCl (Roxicodone, Oxyir) 5 mg Q4HP PRN PO PAIN Last administered on 10/15/18 09:23; Start 10/14/18 at 16:15 Pantoprazole Sodium (Protonix) 40 mg DAILY PO Last administered on 10/15/18 09:21; Start 10/14/18 at 09:00 Rivaroxaban (Xarelto) 10 mg DAILY@1800 PO Last administered on 10/14/18at 17:09; Start 10/14/18 at 18:00 Senna (Senokot) 1 tab QHS PO Last administered on 10/14/18at 20:05; Start 10/14/18 at 21:00 KARYN ASH MD Oct 15, 2018 10:13
--- NOTE | 2018-10-15 11:05 | CR ---
DATE OF CONSULTATION: 10/15/2018 This is a medicine consultation on Sari Lugo. She has a relatively uncomplicated medical history. She had a left hip fracture and underwent open reduction, internal fixation (ORIF) on 10/11/2018. PAST MEDICAL HISTORY: Essentially benign. Vitamin D deficiency and osteoporosis. OUTPATIENT MEDICATIONS: - Ibandronate 150 mg monthly - calcium with vitamin D - glucosamine REVIEW OF SYSTEMS: No abdominal pain. PHYSICAL EXAMINATION: VITAL SIGNS: Stable. LUNGS: Clear HEART: Regular rhythm. ABDOMEN: Soft, nontender. EXTREMITIES: No peripheral edema. LABORATORIES: Reviewed and are unremarkable, unchanged from when she was on acute care. IMPRESSION: The patient has osteoporosis, vitamin D deficiency. She is seen in rehab. She does not have any medical issues that require closer attention at this point.
[2018-10-15] MEDS ORDERED: ACETAMINOPHEN TAB 650MG DOSE (2X325MG) PO PRN (12:15)
[2018-10-15 14:00] VITALS: BP 124/59
[2018-10-15] MEDS: RIVAROXABAN 10 MG TAB (XARELTO) PO SCH (17:22)
[2018-10-15 20:00] VITALS: BP_SYST 120; BP_DIAS 60; BP_DIAS 96
[2018-10-15] MEDS: SENNA 8.6 MG TAB (SENOKOT) PO SCH (20:56)
[2018-10-15] MEDS: LIDOCAINE 5% (LIDODERM) PATCH TD SCH (20:57)
[2018-10-16] MEDS: oxyCODONE 5MG TAB PO PRN ×2 (05:25→13:50)
[2018-10-16 06:00] VITALS: BP 140/68
[2018-10-16 06:41] LABS: BASO # 0.1 10^3/uL (0.0-0.2); BASO % 0.7 % (0.0-1.0); EOS # 0.2 10^3/uL (0.0-0.50); HEMATOCRIT 26.9 % (36.0-47.0); HEMOGLOBIN 8.7 g/dl (12.0-15.5); LYMPH # 1.5 10^3/uL (1.5-4.5); LYMPH % 18.2 % (24.0-44.0); MEAN CORPUSCULAR HGB CONC 32.3 g/dl (32.0-36.5); MEAN CORPUSCULAR VOLUME 95.7 fl (80.0-96.0); MONO % 12.1 % (0.0-5.0); NEUTROPHILS # 5.6 10^3/uL (1.8-7.7); NEUTROPHILS % 66.8 % (36.0-66.0); PLATELET COUNT, AUTOMATED 266 10^3/uL (150-450); RED BLOOD COUNT 2.81 10^6/uL (4.00-5.40); WHITE BLOOD COUNT 8.4 10^3/uL (4.0-10.0)
[2018-10-16 07:07] LABS: BLOOD UREA NITROGEN 11 MG/DL (7-18); CALCIUM LEVEL 8.4 MG/DL (8.8-10.2); CARBON DIOXIDE LEVEL 30 MEQ/L (21-32); CHLORIDE LEVEL 105 MEQ/L (98-107); CREATININE FOR GFR 0.37 MG/DL (0.55-1.30); GLOMERULAR FILTRATION RATE > 60.0 (>39); GLUCOSE, FASTING 95 MG/DL (70-100); POTASSIUM SERUM 3.7 MEQ/L (3.5-5.1); SODIUM LEVEL 141 MEQ/L (136-145)
[2018-10-16] MEDS: ACETAMINOPHEN 500 MG TAB PO SCH ×3 (08:39→20:04)
[2018-10-16] MEDS: FERROUS GLUCONATE 324 MG TAB PO SCH ×2 (08:39→20:03)
[2018-10-16] MEDS: PANTOPRAZOLE 40MG TAB (PROTONIX) PO SCH (08:40)
[2018-10-16] MEDS: **NOTE PATIENT COMMENT** MISC XX SCH (08:40)
[2018-10-16] MEDS: DOCUSATE SODIUM 100 MG CAP PO SCH ×2 (08:40→20:04)
--- NOTE | 2018-10-16 10:13 | IPNPDOC ---
PM&R Progress Note DATE OF SERVICE: Oct 16, 2018 Para Machine Operator Progress Note Subjective: Patient states her pain is relatively well controlled and wondering is she should try a lower dose of tylenol. REVIEW OF SYSTEMS: The following is a completed review of systems and has been reviewed. Review of systems otherwise unremarkable. PAIN: Patient self reports left hip pain EYES: No recent vision changes EARS, NOSE, & THROAT: No throat pain, or dysphagia, or rhinorrhea CARDIOVASCULAR: Denies chest pain or palpitations PULMONARY: Denies shortness of breath GASTROINTESTINAL: Denies constipation/diarrhea GENITOURINARY: denies dysuria MUSCULOSKELETAL: LLE weakness NEUROLOGICAL: no tremors or seizure-like activity HEMATOLOGICAL: +anemia SKIN: left hip incision PSYCHIATRIC: Unremarkable All other review of systems found to be negative. PHYSICAL EXAMINATION: VITAL SIGNS: Please see below. GENERAL: Pleasant and cooperative. No acute distress. HEENT: PERRL. Extraocular movements intact. Clear conjunctiva CARDIOVASCULAR: Regular rate and rhythm. No murmurs, rubs, or gallops LUNGS: Clear to auscultation bilaterally. No wheezes. No rhonchi ABDOMEN: Soft, nontender, nondistended. Positive bowel sounds. Normal active bowel sounds NEUROLOGICAL: Alert and oriented times three. Cranial nerves II through XII grossly intact. Sensation grossly intact EXTREMITIES:5\5 strength bilateral upper extremities. 5\5 strength right lower extremity. 5/5 strength in left ankle Dr and EHL, limited due to recent surgery left heel TTP without skin changes SKIN: left hip incision without induration, mild swelling and erythema ASSESSMENT:73-year-old F with past medical history of osteoporosis who presents status post fall with left hip fracture PLAN: 1. Rehab: PT- strengthen bilat LE, improve balance and coordination- PWB to LLE, OT- teach adaptive equipment use for bathing, dressing, strengthen bilat UE and maintain shoulder ROM 2. Ortho: s/p fall with left comminuted femur fracture- PWB, will consult ortho 3. Neuro: stable, avoid deliriogenic meds 4. Cardiac: no known hx, medicine consulted to assist with management 5. Resp: encourage incentive spirometry, current smoker, monitor for infection, declining nicotine patch 6. DVT ppx: Xarelto 7. Pain: significant post-op pain, c/u oxycodone and tylenol, lidoderm patch to back of left heel 8. : monitor PVRs 9. Skin: dressing changes, monitor for skin breakdown 10. Heme: post-op anemia, transfuse if <8, will check FOBT 11. GI ppx: continue protonix 12. Dispo: TBD Allergies Coded Allergies: No Known Allergies (Unverified , 10/11/18) Vital Signs Vital Signs Date Time Temp Pulse Resp B/P (MAP) Pulse Ox O2 Delivery O2 Flow Rate FiO2 10/16/18 06:00 97.8 77 18 140/68 (92) 97 Laboratory Data CBC/BMP Laboratory Tests 10/16/18 06:04 Red Blood Count 2.81 L, Mean Corpuscular Volume 95.7, Mean Corpuscular Hemoglobin 31.0, Mean Corpuscular Hemoglobin Concent 32.3, Red Cell Distribution Width 13.0, Neutrophils (%) (Auto) 66.8 H, Lymphocytes (%) (Auto) 18.2 L, Monocytes (%) (Auto) 12.1 H, Eosinophils (%) (Auto) 2.0, Basophils (%) (Auto) 0.7, Neutrophils # (Auto) 5.6, Lymphocytes # (Auto) 1.5, Monocytes # (Auto) 1.0 H, Eosinophils # (Auto) 0.2, Basophils # (Auto) 0.1, Calcium Level 8.4 L Labs 24H Laboratory Tests 2 10/16/18 06:04: Immature Granulocyte % (Auto) 0.2, White Blood Count 8.4, Red Blood Count 2.81L, Hemoglobin 8.7L, Hematocrit 26.9L, Mean Corpuscular Volume 95.7, Mean Corpuscular Hemoglobin 31.0, Mean Corpuscular Hemoglobin Concent 32.3, Red Cell Distribution Width 13.0, Platelet Count 266, Neutrophils (%) (Auto) 66.8H, Lymphocytes (%) (Auto) 18.2L, Monocytes (%) (Auto) 12.1H, Eosinophils (%) (Auto) 2.0, Basophils (%) (Auto) 0.7, Neutrophils # (Auto) 5.6, Lymphocytes # (Auto) 1.5, Monocytes # (Auto) 1.0H, Eosinophils # (Auto) 0.2, Basophils # (Auto) 0.1, Nucleated Red Blood Cells % (auto) 0.0, Anion Gap 6L, Glomerular Filtration Rate > 60.0, Blood Urea Nitrogen 11, Creatinine 0.37L, Sodium Level 141, Potassium Level 3.7, Chloride Level 105, Carbon Dioxide Level 30, Calcium Level 8.4L Current Medications Current Medications Current Medications Acetaminophen (Tylenol Tab) 650 mg Q24HP PRN PO PAIN / FEVER; Start 10/15/18 at 12:15 Acetaminophen (Tylenol Tab) 1,000 mg TID PO Last administered on 10/16/18 08:39; Start 10/14/18 at 16:00 Bisacodyl (Dulcolax Tab) 5 mg DAILYPRN PRN PO CONSTIPATION Last administered on 10/15/18 09:23; Start 10/14/18 at 11:15 Docusate Sodium (Colace) 100 mg BID PO Last administered on 10/16/18 08:40; Start 10/14/18 at 09:00 Ferrous Gluconate (Fergon) 324 mg BID PO Last administered on 10/16/18 08:39; Start 10/14/18 at 09:00 Lidocaine (Lidoderm Patch) 1 patch QHS TD Last administered on 10/15/18 20:57; Start 10/14/18 at 21:00 Non-Formulary Medication ( See Comment Field Below ) REMOVE LIDODERM PATCH DAILY XX Last administered on 10/16/18 08:40; Start 10/15/18 at 09:00 Ondansetron HCl (Zofran) 4 mg Q6HP PRN PO NAUSEA; Start 10/14/18 at 11:15 Oxycodone HCl (Roxicodone, Oxyir) 5 mg Q4HP PRN PO PAIN Last administered on 10/16/18 05:25; Start 10/14/18 at 16:15 Pantoprazole Sodium (Protonix) 40 mg DAILY PO Last administered on 10/16/18 08:40; Start 10/14/18 at 09:00 Rivaroxaban (Xarelto) 10 mg DAILY@1800 PO Last administered on 10/15/18 17:22; Start 10/14/18 at 18:00 Senna (Senokot) 1 tab QHS PO Last administered on 10/15/18 20:56; Start 10/14/18 at 21:00 KARYN ASH MD Oct 16, 2018 10:13
[2018-10-16 14:00] VITALS: BP 154/78
[2018-10-16] MEDS: RIVAROXABAN 10 MG TAB (XARELTO) PO SCH (16:37)
[2018-10-16 20:00] VITALS: BP 118/55
[2018-10-16] MEDS: SENNA 8.6 MG TAB (SENOKOT) PO SCH (20:03)
[2018-10-16] MEDS: LIDOCAINE 5% (LIDODERM) PATCH TD SCH (20:05)
[2018-10-17] MEDS: oxyCODONE 5MG TAB PO PRN ×3 (04:29→18:05)
[2018-10-17 06:18] VITALS: BP 148/76
[2018-10-17] MEDS: FERROUS GLUCONATE 324 MG TAB PO SCH ×2 (08:06→21:03)
[2018-10-17] MEDS: PANTOPRAZOLE 40MG TAB (PROTONIX) PO SCH (08:06)
[2018-10-17] MEDS: ACETAMINOPHEN 500 MG TAB PO SCH ×3 (08:06→21:03)
[2018-10-17] MEDS: **NOTE PATIENT COMMENT** MISC XX SCH (08:06)
[2018-10-17] MEDS: DOCUSATE SODIUM 100 MG CAP PO SCH ×2 (08:06→21:03)
[2018-10-17 14:00] VITALS: BP 148/68
[2018-10-17] MEDS: RIVAROXABAN 10 MG TAB (XARELTO) PO SCH (17:14)
[2018-10-17 20:00] VITALS: BP 132/62
[2018-10-17] MEDS: LIDOCAINE 5% (LIDODERM) PATCH TD SCH (21:00)
[2018-10-17] MEDS: SENNA 8.6 MG TAB (SENOKOT) PO SCH (21:03)
[2018-10-18] MEDS: oxyCODONE 5MG TAB PO PRN ×2 (03:57→08:41)
[2018-10-18 05:51] VITALS: BP 137/68
[2018-10-18] MEDS: FERROUS GLUCONATE 324 MG TAB PO SCH ×2 (08:34→20:10)
[2018-10-18] MEDS: DOCUSATE SODIUM 100 MG CAP PO SCH ×2 (08:34→20:10)
[2018-10-18] MEDS: PANTOPRAZOLE 40MG TAB (PROTONIX) PO SCH (08:34)
[2018-10-18] MEDS: ACETAMINOPHEN 500 MG TAB PO SCH ×4 (08:34→20:10)
[2018-10-18] MEDS: **NOTE PATIENT COMMENT** MISC XX SCH (08:35)
[2018-10-18 10:14] LABS: BASO # 0.1 10^3/uL (0.0-0.2); BASO % 0.5 % (0.0-1.0); EOS # 0.2 10^3/uL (0.0-0.50); EOS % 2.4 % (0.0-3.0); HEMATOCRIT 29.1 % (36.0-47.0); HEMOGLOBIN 9.3 g/dl (12.0-15.5); LYMPH # 1.6 10^3/uL (1.5-4.5); MEAN CORPUSCULAR HEMOGLOBIN 31.8 pg (27.0-33.0); MEAN CORPUSCULAR VOLUME 99.7 fl (80.0-96.0); MONO # 1.1 10^3/uL (0.0-0.8); MONO % 11.8 % (0.0-5.0); NEUTROPHILS # 6.2 10^3/uL (1.8-7.7); NEUTROPHILS % 67.9 % (36.0-66.0); PLATELET COUNT, AUTOMATED 361 10^3/uL (150-450); RED BLOOD COUNT 2.92 10^6/uL (4.00-5.40); WHITE BLOOD COUNT 9.2 10^3/uL (4.0-10.0)
[2018-10-18 10:39] LABS: BLOOD UREA NITROGEN 11 MG/DL (7-18); CARBON DIOXIDE LEVEL 30 MEQ/L (21-32); CHLORIDE LEVEL 102 MEQ/L (98-107); CREATININE FOR GFR 0.49 MG/DL (0.55-1.30); GLOMERULAR FILTRATION RATE > 60.0 (>39); GLUCOSE, FASTING 80 MG/DL (70-100); POTASSIUM SERUM 3.5 MEQ/L (3.5-5.1); SODIUM LEVEL 140 MEQ/L (136-145)
[2018-10-18] MEDS: GABAPENTIN 100 MG CAP PO SCH ×3 (11:00→20:10)
--- NOTE | 2018-10-18 11:09 | IPNPDOC ---
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 She is also open to trying Gabapentin to help offset her need for opioids. REVIEW OF SYSTEMS: The following is a completed review of systems and has been reviewed. Review of systems otherwise unremarkable. PAIN: Patient self reports left hip pain EYES: No recent vision changes EARS, NOSE, & THROAT: No throat pain, or dysphagia, or rhinorrhea CARDIOVASCULAR: Denies chest pain or palpitations PULMONARY: Denies shortness of breath GASTROINTESTINAL: Denies constipation/diarrhea GENITOURINARY: denies dysuria MUSCULOSKELETAL: LLE weakness NEUROLOGICAL: no tremors or seizure-like activity HEMATOLOGICAL: +anemia SKIN: left hip incision PSYCHIATRIC: Unremarkable All other review of systems found to be negative. PHYSICAL EXAMINATION: VITAL SIGNS: Please see below. GENERAL: Pleasant and cooperative. No acute distress. HEENT: PERRL. Extraocular movements intact. Clear conjunctiva CARDIOVASCULAR: Regular rate and rhythm. No murmurs, rubs, or gallops LUNGS: Clear to auscultation bilaterally. No wheezes. No rhonchi ABDOMEN: Soft, nontender, nondistended. Positive bowel sounds. Normal active bowel sounds NEUROLOGICAL: Alert and oriented times three. Cranial nerves II through XII grossly intact. Sensation grossly intact EXTREMITIES:5\5 strength bilateral upper extremities. 5\5 strength right lower extremity. 5/5 strength in left ankle Dr and EHL, limited due to recent surgery left heel TTP without skin changes SKIN: left hip incision without induration, mild swelling and erythema ASSESSMENT:73-year-old F with past medical history of osteoporosis who presents status post fall with left hip fracture PLAN: 1. Rehab: PT- strengthen bilat LE, improve balance and coordination- PWB to LLE, OT- teach adaptive equipment use for bathing, dressing, strengthen bilat UE and maintain shoulder ROM 2. Ortho: s/p fall with left comminuted femur fracture- PWB, will consult ortho 3. Neuro: stable, avoid deliriogenic meds 4. Cardiac: no known hx, medicine consulted to assist with management 5. Resp: encourage incentive spirometry, current smoker, monitor for infection, declining nicotine patch 6. DVT ppx: Xarelto 7. Pain: significant post-op pain, c/u oxycodone and Tylenol, Lidoderm patch to back of left heel, add gabapentin 100mg TID 8. : monitor PVRs 9. Skin: dressing changes, monitor for skin breakdown 10. Heme: post-op anemia, transfuse if <8, stable at 9 11. GI ppx: continue protonix 12. Dispo: TBD Allergies Coded Allergies: No Known Allergies (Unverified , 10/11/18) Vital Signs Vital Signs Date Time Temp Pulse Resp B/P (MAP) Pulse Ox O2 Delivery O2 Flow Rate FiO2 10/18/18 08:41 18 10/18/18 05:51 98.5 75 137/68 (91) 95 Laboratory Data CBC/BMP Laboratory Tests 10/18/18 10:06 Red Blood Count 2.92 L, Mean Corpuscular Volume 99.7 H, Mean Corpuscular Hemoglobin 31.8, Mean Corpuscular Hemoglobin Concent 32.0, Red Cell Distribution Width 13.8, Neutrophils (%) (Auto) 67.9 H, Lymphocytes (%) (Auto) 17.0 L, Monocytes (%) (Auto) 11.8 H, Eosinophils (%) (Auto) 2.4, Basophils (%) (Auto) 0.5, Neutrophils # (Auto) 6.2, Lymphocytes # (Auto) 1.6, Monocytes # (Auto) 1.1 H, Eosinophils # (Auto) 0.2, Basophils # (Auto) 0.1, Calcium Level 9.0 Labs 24H Laboratory Tests 2 10/18/18 10:06: Immature Granulocyte % (Auto) 0.4, White Blood Count 9.2, Red Blood Count 2.92L, Hemoglobin 9.3L, Hematocrit 29.1L, Mean Corpuscular Volume 99.7H, Mean Corpuscular Hemoglobin 31.8, Mean Corpuscular Hemoglobin Concent 32.0, Red Cell Distribution Width 13.8, Platelet Count 361, Neutrophils (%) (Auto) 67.9H, Lymphocytes (%) (Auto) 17.0L, Monocytes (%) (Auto) 11.8H, Eosinophils (%) (Auto) 2.4, Basophils (%) (Auto) 0.5, Neutrophils # (Auto) 6.2, Lymphocytes # (Auto) 1.6, Monocytes # (Auto) 1.1H, Eosinophils # (Auto) 0.2, Basophils # (Auto) 0.1, Nucleated Red Blood Cells % (auto) 0.0, Anion Gap 8, Glomerular Filtration Rate > 60.0, Blood Urea Nitrogen 11, Creatinine 0.49L, Sodium Level 140, Potassium Level 3.5, Chloride Level 102, Carbon Dioxide Level 30, Calcium Level 9.0 Current Medications Current Medications Current Medications Acetaminophen (Tylenol Tab) 650 mg Q24HP PRN PO PAIN / FEVER; Start 10/15/18 at 12:15; Stop 10/18/18 at 09:14; Status DC Acetaminophen (Tylenol Tab) 1,000 mg QID PO ; Start 10/18/18 at 13:00 Acetaminophen (Tylenol Tab) 1,000 mg TID PO Last administered on 10/18/18 08:34; Start 10/14/18 at 16:00; Stop 10/18/18 at 09:14; Status DC Bisacodyl (Dulcolax Tab) 5 mg DAILYPRN PRN PO CONSTIPATION Last administered on 10/15/18at 09:23; Start 10/14/18 at 11:15 Docusate Sodium (Colace) 100 mg BID PO Last administered on 10/18/18 08:34; Start 10/14/18 at 09:00 Ferrous Gluconate (Fergon) 324 mg BID PO Last administered on 10/18/18 08:34; Start 10/14/18 at 09:00 Gabapentin (Neurontin) 100 mg TID PO Last administered on 10/18/18 11:00; Start 10/18/18 at 09:00 Lidocaine (Lidoderm Patch) 1 patch QHS TD Last administered on 10/16/18at 20:05; Start 10/14/18 at 21:00 Non-Formulary Medication ( See Comment Field Below ) REMOVE LIDODERM PATCH DAILY XX Last administered on 10/18/18 08:35; Start 10/15/18 at 09:00 Ondansetron HCl (Zofran) 4 mg Q6HP PRN PO NAUSEA; Start 10/14/18 at 11:15 Oxycodone HCl (Roxicodone, Oxyir) 5 mg Q4HP PRN PO PAIN Last administered on 10/18/18 08:41; Start 10/14/18 at 16:15; Stop 10/18/18 at 09:45; Status DC Pantoprazole Sodium (Protonix) 40 mg DAILY PO Last administered on 10/18/18at 08:34; Start 10/14/18 at 09:00 Rivaroxaban (Xarelto) 10 mg DAILY@1800 PO Last administered on 10/17/18at 17:14; Start 10/14/18 at 18:00; Stop 11/18/18 at 17:59 Senna (Senokot) 1 tab QHS PO Last administered on 10/17/18at 21:03; Start 10/14/18 at 21:00 KARYN ASH MD Oct 18, 2018 11:09
[2018-10-18 14:00] VITALS: BP 117/62
[2018-10-18] MEDS: RIVAROXABAN 10 MG TAB (XARELTO) PO SCH (18:07)
[2018-10-18 20:00] VITALS: BP 128/60
[2018-10-18] MEDS: SENNA 8.6 MG TAB (SENOKOT) PO SCH (20:10)
[2018-10-18] MEDS: LIDOCAINE 5% (LIDODERM) PATCH TD SCH (20:11)
[2018-10-19 06:40] VITALS: BP 157/70
[2018-10-19 07:16] LABS: BASO # 0.1 10^3/uL (0.0-0.2); BASO % 0.7 % (0.0-1.0); EOS # 0.3 10^3/uL (0.0-0.50); EOS % 3.8 % (0.0-3.0); HEMATOCRIT 28.7 % (36.0-47.0); HEMOGLOBIN 9.4 g/dl (12.0-15.5); LYMPH # 1.3 10^3/uL (1.5-4.5); LYMPH % 18.6 % (24.0-44.0); MEAN CORPUSCULAR HGB CONC 32.8 g/dl (32.0-36.5); MEAN CORPUSCULAR VOLUME 100.7 fl (80.0-96.0); MONO # 0.8 10^3/uL (0.0-0.8); MONO % 12.2 % (0.0-5.0); NEUTROPHILS # 4.4 10^3/uL (1.8-7.7); NEUTROPHILS % 64.3 % (36.0-66.0); PLATELET COUNT, AUTOMATED 391 10^3/uL (150-450); RED BLOOD COUNT 2.85 10^6/uL (4.00-5.40); WHITE BLOOD COUNT 6.8 10^3/uL (4.0-10.0)
[2018-10-19] MEDS: GABAPENTIN 100 MG CAP PO SCH ×3 (07:52→20:46)
[2018-10-19] MEDS: FERROUS GLUCONATE 324 MG TAB PO SCH ×2 (07:52→20:46)
[2018-10-19] MEDS: ACETAMINOPHEN 500 MG TAB PO SCH ×4 (07:52→20:47)
[2018-10-19] MEDS: DOCUSATE SODIUM 100 MG CAP PO SCH ×2 (07:52→20:25)
[2018-10-19] MEDS: PANTOPRAZOLE 40MG TAB (PROTONIX) PO SCH (07:53)
[2018-10-19] MEDS: **NOTE PATIENT COMMENT** MISC XX SCH (07:54)
[2018-10-19 14:00] VITALS: BP 145/65
[2018-10-19] MEDS: RIVAROXABAN 10 MG TAB (XARELTO) PO SCH (16:52)
[2018-10-19 20:00] VITALS: BP 115/59
[2018-10-19] MEDS: SENNA 8.6 MG TAB (SENOKOT) PO SCH (20:25)
[2018-10-19] MEDS: LIDOCAINE 5% (LIDODERM) PATCH TD SCH (20:47)
[2018-10-20 06:00] VITALS: BP 148/71
[2018-10-20] MEDS: GABAPENTIN 100 MG CAP PO SCH ×3 (06:17→21:59)
[2018-10-20] MEDS: ACETAMINOPHEN 500 MG TAB PO SCH ×4 (06:18→22:00)
[2018-10-20] MEDS: **NOTE PATIENT COMMENT** MISC XX SCH (09:00)
[2018-10-20] MEDS: DOCUSATE SODIUM 100 MG CAP PO SCH ×2 (09:00→21:00)
[2018-10-20] MEDS: PANTOPRAZOLE 40MG TAB (PROTONIX) PO SCH (09:08)
[2018-10-20] MEDS: FERROUS GLUCONATE 324 MG TAB PO SCH ×2 (09:08→21:59)
[2018-10-20 14:00] VITALS: BP 133/61
[2018-10-20] MEDS: RIVAROXABAN 10 MG TAB (XARELTO) PO SCH (17:16)
[2018-10-20 20:00] VITALS: BP 115/59
[2018-10-20] MEDS: LIDOCAINE 5% (LIDODERM) PATCH TD SCH (21:00)
[2018-10-20] MEDS: SENNA 8.6 MG TAB (SENOKOT) PO SCH (21:00)
[2018-10-21 06:00] VITALS: BP 121/70
[2018-10-21] MEDS: FERROUS GLUCONATE 324 MG TAB PO SCH ×2 (08:31→20:09)
[2018-10-21] MEDS: DOCUSATE SODIUM 100 MG CAP PO SCH ×2 (08:31→20:09)
[2018-10-21] MEDS: ACETAMINOPHEN 500 MG TAB PO SCH ×4 (08:32→20:11)
[2018-10-21] MEDS: GABAPENTIN 100 MG CAP PO SCH ×3 (08:32→20:09)
[2018-10-21] MEDS: PANTOPRAZOLE 40MG TAB (PROTONIX) PO SCH (08:32)
[2018-10-21] MEDS: **NOTE PATIENT COMMENT** MISC XX SCH (08:33)
[2018-10-21] MEDS: oxyCODONE 5MG TAB PO PRN (12:54)
[2018-10-21 14:00] VITALS: BP 126/62
[2018-10-21] MEDS: RIVAROXABAN 10 MG TAB (XARELTO) PO SCH (17:41)
[2018-10-21 20:00] VITALS: BP 134/62
[2018-10-21] MEDS: SENNA 8.6 MG TAB (SENOKOT) PO SCH (20:09)
[2018-10-21] MEDS: LIDOCAINE 5% (LIDODERM) PATCH TD SCH (20:12)
[2018-10-22] MEDS: oxyCODONE 5MG TAB PO PRN ×2 (01:38→10:59)
[2018-10-22 06:00] VITALS: BP 138/70
[2018-10-22] MEDS: PANTOPRAZOLE 40MG TAB (PROTONIX) PO SCH (08:39)
[2018-10-22] MEDS: GABAPENTIN 100 MG CAP PO SCH ×3 (08:40→20:41)
[2018-10-22] MEDS: ACETAMINOPHEN 500 MG TAB PO SCH ×4 (08:40→20:42)
[2018-10-22] MEDS: FERROUS GLUCONATE 324 MG TAB PO SCH ×2 (08:40→20:41)
[2018-10-22] MEDS: DOCUSATE SODIUM 100 MG CAP PO SCH ×2 (08:42→20:41)
[2018-10-22] MEDS: **NOTE PATIENT COMMENT** MISC XX SCH (08:42)
[2018-10-22 14:00] VITALS: BP 156/74
--- NOTE | 2018-10-22 16:49 | IPNPDOC ---
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 REVIEW OF SYSTEMS: The following is a completed review of systems and has been reviewed. Review of systems otherwise unremarkable. PAIN: Patient self reports left hip pain EYES: No recent vision changes EARS, NOSE, & THROAT: No throat pain, or dysphagia, or rhinorrhea CARDIOVASCULAR: Denies chest pain or palpitations PULMONARY: Denies shortness of breath GASTROINTESTINAL: Denies constipation/diarrhea GENITOURINARY: denies dysuria MUSCULOSKELETAL: LLE weakness NEUROLOGICAL: no tremors or seizure-like activity HEMATOLOGICAL: +anemia SKIN: left hip incision PSYCHIATRIC: Unremarkable All other review of systems found to be negative. PHYSICAL EXAMINATION: VITAL SIGNS: Please see below. GENERAL: Pleasant and cooperative. No acute distress. HEENT: PERRL. Extraocular movements intact. Clear conjunctiva CARDIOVASCULAR: Regular rate and rhythm. No murmurs, rubs, or gallops LUNGS: Clear to auscultation bilaterally. No wheezes. No rhonchi ABDOMEN: Soft, nontender, nondistended. Positive bowel sounds. Normal active bowel sounds NEUROLOGICAL: Alert and oriented times three. Cranial nerves II through XII grossly intact. Sensation grossly intact EXTREMITIES:5\5 strength bilateral upper extremities. 5\5 strength right lower extremity. 5/5 strength in left ankle Dr and EHL, limited due to recent surgery left heel TTP without skin changes SKIN: left hip incision without induration, mild swelling and erythema ASSESSMENT:73-year-old F with past medical history of osteoporosis who presents status post fall with left hip fracture PLAN: 1. Rehab: advancing to Mod-I with mobility limited by difficulty getting out of bed, will consider room privileges once she becomes more comfortable with this -PT- strengthen bilat LE, improve balance and coordination- PWB to LLE, OT- teach adaptive equipment use for bathing, dressing, strengthen bilat UE and ma intain shoulder ROM 2. Ortho: s/p fall with left comminuted femur fracture- PWB, will consult ortho 3. Neuro: stable, avoid deliriogenic meds 4. Cardiac: no known hx, medicine consulted to assist with management 5. Resp: encourage incentive spirometry, current smoker, monitor for infection, declining nicotine patch 6. DVT ppx: Xarelto 7. Pain: significant post-op pain, c/u oxycodone and Tylenol, patient requesting no more Lidoderm patch to left heel, c/u gabapentin 100mg TID 8. : monitor PVRs 9. Skin: dressing changes, monitor for skin breakdown 10. Heme: post-op anemia, transfuse if <8, stable at 9 11. GI ppx: continue protonix 12. Dispo:10/25/18 to home, progressing towards goals Allergies Coded Allergies: No Known Allergies (Unverified , 10/11/18) Vital Signs Vital Signs Date Time Temp Pulse Resp B/P (MAP) Pulse Ox O2 Delivery O2 Flow Rate FiO2 10/22/18 14:00 98.3 72 14 156/74 (101) 98 Current Medications Current Medications Current Medications Acetaminophen (Tylenol Tab) 650 mg Q24HP PRN PO PAIN / FEVER; Start 10/15/18 at 12:15; Stop 10/18/18 at 09:14; Status DC Acetaminophen (Tylenol Tab) 1,000 mg QID PO Last administered on 10/22/18at 12:03; Start 10/18/18 at 13:00 Acetaminophen (Tylenol Tab) 1,000 mg TID PO Last administered on 10/18/18at 08:34; Start 10/14/18 at 16:00; Stop 10/18/18 at 09:14; Status DC Bisacodyl (Dulcolax Tab) 5 mg DAILYPRN PRN PO CONSTIPATION Last administered on 10/15/18at 09:23; Start 10/14/18 at 11:15 Docusate Sodium (Colace) 100 mg BID PO Last administered on 10/21/18at 20:09; Start 10/14/18 at 09:00 Ferrous Gluconate (Fergon) 324 mg BID PO Last administered on 10/22/18at 08:40; Start 10/14/18 at 09:00 Gabapentin (Neurontin) 100 mg TID PO Last administered on 10/22/18at 08:40; Start 10/18/18 at 09:00 Lidocaine (Lidoderm Patch) 1 patch QHS TD Last administered on 10/16/18at 20:05; Start 10/14/18 at 21:00 Non-Formulary Medication ( See Comment Field Below ) REMOVE LIDODERM PATCH DAILY XX Last administered on 10/21/18 08:33; Start 10/15/18 at 09:00 Ondansetron HCl (Zofran) 4 mg Q6HP PRN PO NAUSEA; Start 10/14/18 at 11:15 Oxycodone HCl (Roxicodone, Oxyir) 5 mg Q4HP PRN PO PAIN Last administered on 10/18/18 08:41; Start 10/14/18 at 16:15; Stop 10/18/18 at 09:45; Status DC Oxycodone HCl (Roxicodone, Oxyir) 5 mg Q6HP PRN PO PAIN Last administered on 10/22/18 10:59; Start 10/21/18 at 11:30 Pantoprazole Sodium (Protonix) 40 mg DAILY PO Last administered on 10/22/18 08:39; Start 10/14/18 at 09:00 Rivaroxaban (Xarelto) 10 mg DAILY@1800 PO Last administered on 10/21/18 17:41; Start 10/14/18 at 18:00; Stop 11/18/18 at 17:59 Senna (Senokot) 1 tab QHS PO Last administered on 10/21/18 20:09; Start 10/14/18 at 21:00 KARYN ASH MD Oct 22, 2018 16:49
[2018-10-22] MEDS: RIVAROXABAN 10 MG TAB (XARELTO) PO SCH (17:31)
[2018-10-22] MEDS: oxyCODONE 5MG TAB PO SCH (17:31)
[2018-10-22] MEDS: LIDOCAINE 5% (LIDODERM) PATCH TD SCH (20:40)
[2018-10-22] MEDS: ANALGESIC BALM CRM 120 GM TOP SCH (20:41)
[2018-10-22] MEDS: SENNA 8.6 MG TAB (SENOKOT) PO SCH (20:41)
[2018-10-23 05:45] VITALS: BP 123/59
[2018-10-23] MEDS ORDERED: XARE10TA PO (06:02)
[2018-10-23] MEDS: oxyCODONE 5MG TAB PO SCH ×3 (06:15→17:48)
[2018-10-23 07:25] LABS: BASO % 0.5 % (0.0-1.0); EOS # 0.2 10^3/uL (0.0-0.50); EOS % 2.5 % (0.0-3.0); HEMATOCRIT 28.4 % (36.0-47.0); HEMOGLOBIN 8.9 g/dl (12.0-15.5); LYMPH # 1.6 10^3/uL (1.5-4.5); LYMPH % 19.4 % (24.0-44.0); MEAN CORPUSCULAR HEMOGLOBIN 31.1 pg (27.0-33.0); MEAN CORPUSCULAR HGB CONC 31.3 g/dl (32.0-36.5); MEAN CORPUSCULAR VOLUME 99.3 fl (80.0-96.0); MONO # 0.8 10^3/uL (0.0-0.8); MONO % 10.1 % (0.0-5.0); NEUTROPHILS # 5.6 10^3/uL (1.8-7.7); NEUTROPHILS % 66.9 % (36.0-66.0); PLATELET COUNT, AUTOMATED 462 10^3/uL (150-450); RED BLOOD COUNT 2.86 10^6/uL (4.00-5.40); WHITE BLOOD COUNT 8.4 10^3/uL (4.0-10.0)
--- NOTE | 2018-10-23 08:03 | IPN ---
DATE: 10/21/2018 She is a 73-year-old female who had a left hip fracture and underwent open reduction internal fixation (ORIF) on 10/11/2018. Past medical history is essentially benign with vitamin D deficiency and osteoporosis. She is doing well with no medical issues. Vital signs have been stable. She had no physical complaints today, felt she was doing well. OBJECTIVE: Blood pressure 126/62, pulse 70, respirations 18, temperature 97. Patient is alert and oriented times three. Pharynx, tongue and gums are pink and moist. Tongue is midline. Neck is supple without lymphadenopathy. No thyromegaly, no goiter. Carotids 2+ without bruit. Chest is clear to auscultation without wheeze or retraction. Heart is irregular. Abdomen benign. Bowel sounds positive. /rectal not done. Extremities no cyanosis, clubbing or edema. Hip dressing in place. IMPRESSION/PLAN: Rehabilitation per Dr. Coyle. No acute medical issues.
[2018-10-23] MEDS: FERROUS GLUCONATE 324 MG TAB PO SCH ×2 (08:31→20:25)
[2018-10-23] MEDS: ACETAMINOPHEN 500 MG TAB PO SCH ×4 (08:31→20:26)
[2018-10-23] MEDS: GABAPENTIN 100 MG CAP PO SCH ×3 (08:32→20:25)
[2018-10-23] MEDS: PANTOPRAZOLE 40MG TAB (PROTONIX) PO SCH (08:32)
[2018-10-23] MEDS: DOCUSATE SODIUM 100 MG CAP PO SCH ×2 (08:32→20:25)
[2018-10-23] MEDS: **NOTE PATIENT COMMENT** MISC XX SCH (08:32)
[2018-10-23] MEDS: ANALGESIC BALM CRM 120 GM TOP SCH ×2 (08:37→20:25)
--- NOTE | 2018-10-23 10:01 | IPNPDOC ---
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 She said she slept well and had a good morn ing. REVIEW OF SYSTEMS: The following is a completed review of systems and has been reviewed. Review of systems otherwise unremarkable. PAIN: Patient self reports left hip pain EYES: No recent vision changes EARS, NOSE, & THROAT: No throat pain, or dysphagia, or rhinorrhea CARDIOVASCULAR: Denies chest pain or palpitations PULMONARY: Denies shortness of breath GASTROINTESTINAL: Denies constipation/diarrhea GENITOURINARY: denies dysuria MUSCULOSKELETAL: LLE weakness NEUROLOGICAL: no tremors or seizure-like activity HEMATOLOGICAL: +anemia SKIN: left hip incision PSYCHIATRIC: Unremarkable All other review of systems found to be negative. PHYSICAL EXAMINATION: VITAL SIGNS: Please see below. GENERAL: Pleasant and cooperative. No acute distress. HEENT: PERRL. Extraocular movements intact. Clear conjunctiva CARDIOVASCULAR: Regular rate and rhythm. No murmurs, rubs, or gallops LUNGS: Clear to auscultation bilaterally. No wheezes. No rhonchi ABDOMEN: Soft, nontender, nondistended. Positive bowel sounds. Normal active bowel sounds NEUROLOGICAL: Alert and oriented times three. Cranial nerves II through XII grossly intact. Sensation grossly intact EXTREMITIES:5\5 strength bilateral upper extremities. 5\5 strength right lower extremity. 5/5 strength in left ankle Dr and EHL, limited due to recent surgery left heel TTP without skin changes SKIN: left hip incision without induration, mild swelling and erythema ASSESSMENT:73-year-old F with past medical history of osteoporosis who presents status post fall with left hip fracture PLAN: 1. Rehab: advancing to Mod-I with mobility limited by difficulty getting out of bed, will consider room privileges once she becomes more comfortable with this -PT- strengthen bilat LE, improve balance and coordination- PWB to LLE, OT- teach adaptive equipment use for bathing, dressing, strengthen bilat UE and maintain shoulder ROM 2. Ortho: s/p fall with left comminuted femur fracture- PWB, will consult ortho 3. Neuro: stable, avoid deliriogenic meds 4. Cardiac: no known hx, medicine consulted to assist with management 5. Resp: encourage incentive spirometry, current smoker, monitor for infection, declining nicotine patch 6. DVT ppx: Xarelto 7. Pain: significant post-op pain, c/u oxycodone and Tylenol, patient requesting no more Lidoderm patch to left heel, c/u gabapentin 100mg TID 8. : monitor PVRs 9. Skin: dressing changes, monitor for skin breakdown 10. Heme: post-op anemia, transfuse if <8, stable at 9 11. GI ppx: continue protonix 12. Dispo:10/25/18 to home, progressing towards goals Allergies Coded Allergies: No Known Allergies (Unverified , 10/11/18) Vital Signs Vital Signs Date Time Temp Pulse Resp B/P (MAP) Pulse Ox O2 Delivery O2 Flow Rate FiO2 10/23/18 07:15 16 10/23/18 05:45 97.8 76 123/59 (80) 97 Laboratory Data CBC/BMP Laboratory Tests 10/23/18 06:56 Red Blood Count 2.86 L, Mean Corpuscular Volume 99.3 H, Mean Corpuscular Hemoglobin 31.1, Mean Corpuscular Hemoglobin Concent 31.3 L, Red Cell Distribution Width 15.9 H, Neutrophils (%) (Auto) 66.9 H, Lymphocytes (%) (Auto) 19.4 L, Monocytes (%) (Auto) 10.1 H, Eosinophils (%) (Auto) 2.5, Basophils (%) (Auto) 0.5, Neutrophils # (Auto) 5.6, Lymphocytes # (Auto) 1.6, Monocytes # (Auto) 0.8, Eosinophils # (Auto) 0.2, Basophils # (Auto) 0.0 Labs 24H Laboratory Tests 2 10/23/18 06:56: Immature Granulocyte % (Auto) 0.6, White Blood Count 8.4, Red Blood Count 2.86L, Hemoglobin 8.9L, Hematocrit 28.4L, Mean Corpuscular Volume 99.3H, Mean Corpuscular Hemoglobin 31.1, Mean Corpuscular Hemoglobin Concent 31.3L, Red Cell Distribution Width 15.9H, Platelet Count 462H, Neutrophils (%) (Auto) 66.9H, Lymphocytes (%) (Auto) 19.4L, Monocytes (%) (Auto) 10.1H, Eosinophils (%) (Auto) 2.5, Basophils (%) (Auto) 0.5, Neutrophils # (Auto) 5.6, Lymphocytes # (Auto) 1.6, Monocytes # (Auto) 0.8, Eosinophils # (Auto) 0.2, Basophils # (Auto) 0.0, Nucleated Red Blood Cells % (auto) 0.0 Current Medications Current Medications Current Medications Acetaminophen (Tylenol Tab) 650 mg Q24HP PRN PO PAIN / FEVER; Start 10/15/18 at 12:15; Stop 10/18/18 at 09:14; Status DC Acetaminophen (Tylenol Tab) 1,000 mg QID PO Last administered on 10/23/18 08:31; Start 10/18/18 at 13:00 Acetaminophen (Tylenol Tab) 1,000 mg TID PO Last administered on 10/18/18 08:34; Start 10/14/18 at 16:00; Stop 10/18/18 at 09:14; Status DC Bisacodyl (Dulcolax Tab) 5 mg DAILYPRN PRN PO CONSTIPATION Last administered on 10/15/18 09:23; Start 10/14/18 at 11:15 Docusate Sodium (Colace) 100 mg BID PO Last administered on 10/22/18 20:41; Start 10/14/18 at 09:00 Ferrous Gluconate (Fergon) 324 mg BID PO Last administered on 10/23/18 08:31; Start 10/14/18 at 09:00 Gabapentin (Neurontin) 100 mg TID PO Last administered on 10/22/18 08:40; Start 10/18/18 at 09:00; Stop 10/22/18 at 16:40; Status DC Gabapentin (Neurontin) 200 mg TID PO Last administered on 10/23/18 08:32; Start 10/22/18 at 16:00 Lidocaine (Lidoderm Patch) 1 patch QHS TD Last administered on 10/16/18 20:05; Start 10/14/18 at 21:00 Menthol/Methyl Salicylate (Bengay Cream) 1 dose BID TOP Last administered on 10/23/18 08:37; Start 10/22/18 at 21:00 Non-Formulary Medication ( See Comment Field Below ) REMOVE LIDODERM PATCH DAILY XX Last administered on 10/21/18 08:33; Start 10/15/18 at 09:00 Ondansetron HCl (Zofran) 4 mg Q6HP PRN PO NAUSEA; Start 10/14/18 at 11:15 Oxycodone HCl (Roxicodone, Oxyir) 5 mg Q4HP PRN PO PAIN Last administered on 10/18/18 08:41; Start 10/14/18 at 16:15; Stop 10/18/18 at 09:45; Status DC Oxycodone HCl (Roxicodone, Oxyir) 5 mg Q6HP PRN PO PAIN Last administered on 10/22/18at 10:59; Start 10/21/18 at 11:30; Stop 10/22/18 at 16:40; Status DC Oxycodone HCl (Roxicodone, Oxyir) 5 mg TID@0600,1100,1800 PO Last administered on 10/23/18 06:15; Start 10/22/18 at 18:00 Pantoprazole Sodium (Protonix) 40 mg DAILY PO Last administered on 10/23/18 08:32; Start 10/14/18 at 09:00 Rivaroxaban (Xarelto) 10 mg DAILY@1800 PO Last administered on 10/22/18 17:31; Start 10/14/18 at 18:00; Stop 11/18/18 at 17:59 Senna (Senokot) 1 tab QHS PO Last administered on 10/22/18at 20:41; Start 10/14/18 at 21:00 KARYN ASH MD Oct 23, 2018 10:01
[2018-10-23 14:00] VITALS: BP 135/65
[2018-10-23] MEDS: RIVAROXABAN 10 MG TAB (XARELTO) PO SCH (17:48)
[2018-10-23 20:00] VITALS: BP 139/65
[2018-10-23] MEDS: SENNA 8.6 MG TAB (SENOKOT) PO SCH (20:25)
[2018-10-23] MEDS: LIDOCAINE 5% (LIDODERM) PATCH TD SCH (20:26)
[2018-10-24] MEDS: oxyCODONE 5MG TAB PO SCH ×3 (05:41→17:32)
[2018-10-24 06:00] VITALS: BP 118/56
[2018-10-24] MEDS: **NOTE PATIENT COMMENT** MISC XX SCH (09:00)
[2018-10-24] MEDS: DOCUSATE SODIUM 100 MG CAP PO SCH ×2 (09:00→20:03)
[2018-10-24] MEDS: ACETAMINOPHEN 500 MG TAB PO SCH ×4 (09:04→20:04)
[2018-10-24] MEDS: PANTOPRAZOLE 40MG TAB (PROTONIX) PO SCH (09:05)
[2018-10-24] MEDS: GABAPENTIN 100 MG CAP PO SCH ×3 (09:05→20:04)
[2018-10-24] MEDS: FERROUS GLUCONATE 324 MG TAB PO SCH ×2 (09:05→20:03)
[2018-10-24] MEDS: ANALGESIC BALM CRM 120 GM TOP SCH ×2 (09:08→20:06)
--- NOTE | 2018-10-24 12:06 | IPNPDOC ---
Text Note Date of Service The patient was seen on 10/24/18. NOTE Subjective Has no complaints at time of evaluation. Ambulating in the hallway with therapy team. Denies pain Objective GENERAL: NAD SKIN : left hip incision HEENT: Atraumatic, normocephalic, PERRL, moist mucous membrane CARDIOVASCULAR: Regular rate and rhythm, S1S2, no JVD, no edema, distal pulses + palpable RESP: CTAB, no accessory muscle use noted ABDOMEN: BS+ non distended non tender MS: no joint deformities NEURO: Alert and oriented x 3, CN2-12 grossly intact PSYCH: no anxiety or agitation, appropriate mood and affect. Assessment/Plan Left Hip Fracture -rehabilitation per primary team Anemia -hemoglobin stable -monitor, transfuse for hgb<8 of hemodynamic compromise Nicotine Dependence -has been counselled on tobacco cessation DVT prophylaxis -xarelto VS,Fishbone, I+O VS, Fishbone, I+O Vital Signs Date Time Temp Pulse Resp B/P (MAP) Pulse Ox O2 Delivery O2 Flow Rate FiO2 10/24/18 11:01 18 10/24/18 06:00 98.5 72 118/56 (20) 94 I&O- Last 24 Hours up to 6 AM 10/24/18 05:59 Intake Total 1700 ml Balance 1700 ml LAVELL TRONCOSOP Oct 24, 2018 12:06
[2018-10-24 14:00] VITALS: BP 124/64
--- NOTE | 2018-10-24 16:25 | IPNPDOC ---
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 REVIEW OF SYSTEMS: The following is a completed review of systems and has been reviewed. Review of systems otherwise unremarkable. PAIN: Patient self reports left hip pain EYES: No recent vision changes EARS, NOSE, & THROAT: No throat pain, or dysphagia, or rhinorrhea CARDIOVASCULAR: Denies chest pain or palpitations PULMONARY: Denies shortness of breath GASTROINTESTINAL: Denies constipation/diarrhea GENITOURINARY: denies dysuria MUSCULOSKELETAL: LLE weakness NEUROLOGICAL: no tremors or seizure-like activity HEMATOLOGICAL: +anemia SKIN: left hip incision PSYCHIATRIC: Unremarkable All other review of systems found to be negative. PHYSICAL EXAMINATION: VITAL SIGNS: Please see below. GENERAL: Pleasant and cooperative. No acute distress. HEENT: PERRL. Extraocular movements intact. Clear conjunctiva CARDIOVASCULAR: Regular rate and rhythm. No murmurs, rubs, or gallops LUNGS: Clear to auscultation bilaterally. No wheezes. No rhonchi ABDOMEN: Soft, nontender, nondistended. Positive bowel sounds. Normal active bowel sounds NEUROLOGICAL: Alert and oriented times three. Cranial nerves II through XII grossly intact. Sensation grossly intact EXTREMITIES:5\5 strength bilateral upper extremities. 5\5 strength right lower extremity. 5/5 strength in left ankle Dr and EHL, limited due to recent surgery left heel TTP without skin changes SKIN: left hip incision without induration, mild swelling and erythema ASSESSMENT:73-year-old F with past medical history of osteoporosis who presents status post fall with left hip fracture PLAN: 1. Rehab: advancing to Mod-I with mobility and ADLs- room privileges in place -PT- strengthen bilat LE, improve balance and coordination- PWB to LLE, OT- teach adaptive equipment use for bathing, dressing, strengthen bilat UE and maintain shoulder ROM 2. Ortho: s/p fall with left comminuted femur fracture- PWB, will consult ortho 3. Neuro: stable, avoid deliriogenic meds 4. Cardiac: no known hx, medicine consulted to assist with management 5. Resp: encourage incentive spirometry, current smoker, monitor for infection, declining nicotine patch 6. DVT ppx: Xarelto 7. Pain: significant post-op pain, c/u oxycodone and Tylenol, c/u gabapentin 100mg TID 8. : monitor PVRs 9. Skin: dressing changes, monitor for skin breakdown 10. Heme: post-op anemia, transfuse if <8, stable at 9 11. GI ppx: continue protonix 12. Dispo:10/25/18 to home, progressing towards goals Allergies Coded Allergies: No Known Allergies (Unverified , 10/11/18) Vital Signs Vital Signs Date Time Temp Pulse Resp B/P (MAP) Pulse Ox O2 Delivery O2 Flow Rate FiO2 10/24/18 14:00 98.4 79 17 124/64 (84) 95 Current Medications Current Medications Current Medications Medications (Trade) Dose Ordered Sig/Iraj Route PRN Reason Start Time Stop Time Status Last Admin Dose Admin Acetaminophen (Tylenol Tab) 650 mg Q24HP PRN PO PAIN / FEVER 10/15/18 12:15 10/18/18 09:14 DC Acetaminophen (Tylenol Tab) 1,000 mg QID PO 10/18/18 13:00 10/24/18 12:43 Acetaminophen (Tylenol Tab) 1,000 mg TID PO 10/14/18 16:00 10/18/18 09:14 DC 10/18/18 08:34 Bisacodyl (Dulcolax Tab) 5 mg DAILYPRN PRN PO CONSTIPATION 10/14/18 11:15 10/15/18 09:23 Docusate Sodium (Colace) 100 mg BID PO 10/14/18 09:00 10/23/18 20:25 Ferrous Gluconate (Fergon) 324 mg BID PO 10/14/18 09:00 10/24/18 09:05 Gabapentin (Neurontin) 100 mg TID PO 10/18/18 09:00 10/22/18 16:40 DC 10/22/18 08:40 Gabapentin (Neurontin) 200 mg TID PO 10/22/18 16:00 10/24/18 15:49 Lidocaine (Lidoderm Patch) 1 patch QHS TD 10/14/18 21:00 10/16/18 20:05 Menthol/Methyl Salicylate (Bengay Cream) 1 dose BID TOP 10/22/18 21:00 10/24/18 09:08 Non-Formulary Medication ( See Comment Field Below ) REMOVE LIDODERM PATCH DAILY XX 10/15/18 09:00 10/21/18 08:33 Ondansetron HCl (Zofran) 4 mg Q6HP PRN PO NAUSEA 10/14/18 11:15 Oxycodone HCl (Roxicodone, Oxyir) 5 mg Q4HP PRN PO PAIN 10/14/18 16:15 10/18/18 09:45 DC 10/18/18 08:41 Oxycodone HCl (Roxicodone, Oxyir) 5 mg Q6HP PRN PO PAIN 10/21/18 11:30 10/22/18 16:40 DC 10/22/18 10:59 Oxycodone HCl (Roxicodone, Oxyir) 5 mg TID@0600,1100,1800 PO 10/22/18 18:00 10/24/18 11:01 Pantoprazole Sodium (Protonix) 40 mg DAILY PO 10/14/18 09:00 10/24/18 09:05 Rivaroxaban (Xarelto) 10 mg DAILY@1800 PO 10/14/18 18:00 11/18/18 17:59 10/23/18 17:48 Senna (Senokot) 1 tab QHS PO 10/14/18 21:00 10/23/18 20:25 KARYN ASH MD Oct 24, 2018 16:25
[2018-10-24] MEDS ORDERED: OXYCO5TA PO (16:28)
[2018-10-24] MEDS ORDERED: PANT40TA3 PO (16:28)
[2018-10-24] MEDS ORDERED: FERR32TA PO (16:28)
[2018-10-24] MEDS ORDERED: GABA-1171 PO (16:28)
[2018-10-24] MEDS: RIVAROXABAN 10 MG TAB (XARELTO) PO SCH (17:32)
[2018-10-24 20:00] VITALS: BP 109/52
[2018-10-24] MEDS: SENNA 8.6 MG TAB (SENOKOT) PO SCH (20:03)
[2018-10-24] MEDS: LIDOCAINE 5% (LIDODERM) PATCH TD SCH (20:04)
[2018-10-25] MEDS: oxyCODONE 5MG TAB PO SCH ×2 (05:21→12:26)
[2018-10-25 06:00] VITALS: BP 131/67
[2018-10-25] MEDS: **NOTE PATIENT COMMENT** MISC XX SCH (09:00)
[2018-10-25] MEDS: DOCUSATE SODIUM 100 MG CAP PO SCH (09:36)
[2018-10-25] MEDS: FERROUS GLUCONATE 324 MG TAB PO SCH (09:36)
[2018-10-25] MEDS: PANTOPRAZOLE 40MG TAB (PROTONIX) PO SCH (09:36)
[2018-10-25] MEDS: GABAPENTIN 100 MG CAP PO SCH (09:37)
[2018-10-25] MEDS: ANALGESIC BALM CRM 120 GM TOP SCH (09:38)
[2018-10-25] MEDS: ACETAMINOPHEN 500 MG TAB PO SCH ×2 (09:38→12:25)
--- NOTE | 2018-10-25 12:26 | REP ---
Bilateral lower extremity deep vein duplex ultrasound: The deep veins demonstrate normal compression, normal Doppler color flow and normal Doppler waveforms with respiration and augmentation from the popliteal veins to the common femoral veins bilaterally . Impression: There is no deep vein thrombus in the right lower extremity or left lower extremity. . Electronically Signed by Gopal Carreno MD 10/25/2018 12:17 P
--- NOTE | 2018-10-26 17:29 | PMRDS ---
DATE OF ADMISSION: 10/14/2018 DATE OF DISCHARGE: 10/25/2018 CHIEF COMPLAINT/DISCHARGE DIAGNOSIS: Left hip fracture. HISTORY OF PRESENT ILLNESS: A 73-year-old female with a past medical history of osteoporosis and osteoarthritis who fell because her was backing up in the driveway, inadvertently hit her, and fell onto her left side. Presented to [facility] ([facility]) Emergency Department (ED) on 10/11/2018 complaining of pain and difficulty walking. She denied presyncopal symptoms. Pelvic x-ray revealed "There is a comminuted fracture of the proximal left femur in the intertrochanteric region. A separate lesser trochanter fragment is displaced somewhat medially." Chest x-ray showed no acute infiltrate and a "mild left base fibroatelectatic change." She was evaluated by orthopedics who performed an open reduction, internal fixation (ORIF) on 10/11/2018 with femoral pin fixation. Given her fracture was comminuted, she was made partial weightbearing. She has leukocytosis during her inpatient stay and a drop in hemoglobin from 13.4 preoperatively to 8.6 on postoperative day 3. She was evaluated by therapy and found to require assistance with ambulation and functional transfers in addition to activities of daily living (ADL) management well below her prior level of function. She was deemed medically appropriate for discharge to acute rehabilitation unit (ARU) on 10/14/2018. PAST MEDICAL HISTORY: As per history of present illness (HPI). HOSPITAL COURSE: The patient was admitted and enrolled in a comprehensive physical therapy (PT)/occupational therapy (OT) program. She received 24-hour nursing supervision, and weekly team meetings were held to discuss her progress. During her hospital course, patient was noted to have an increase in her hemoglobin and hematocrit and was able to tolerate therapy. She was maintained on Xarelto for deep vein thrombosis (DVT) prophylaxis, and her postoperative pain was managed with Tylenol, oxycodone, and gabapentin. She remained hemodynamically stable throughout her hospital course, made quick gains in therapy, and was deemed medically and functionally stable to return home with outpatient therapy. DISCHARGE MEDICATIONS: As per discharge records. FUNCTIONAL HISTORY UPON DISCHARGE: The patient was modified independent with a rolling walker, able to ambulate 175 feet partial weightbearing to left lower extremity, and able to negotiate stairs. Her was trained for assistance, and in occupational therapy she was modified independent for bathing, dressing, both upper and lower body, and toileting. Thank you for this referral
== END 2018-10-25 15:40 | disposition home or self-care (01) | DRG 561 ==
LOC: M PM&R 11:40
PROVIDERS: ADMIT Physical Medicine & Rehabilitation; ATTEND Physical Medicine & Rehabilitation
DX: S72.142D Displaced intertrochanteric fracture of left femur, subsequent encounter for closed fracture with routine healing (principal); V03.10XA Pedestrian on foot injured in collision with car, pick-up truck or van in traffic accident, initial encounter; Y92.014 Private driveway to single-family (private) house as the place of occurrence of the external cause; D64.9 Anemia, unspecified; M62.81 Muscle weakness (generalized); F17.200 Nicotine dependence, unspecified, uncomplicated; M81.0 Age-related osteoporosis without current pathological fracture; Z79.899 Other long term (current) drug therapy; M19.90 Unspecified osteoarthritis, unspecified site; E55.9 Vitamin D deficiency, unspecified

== ENCOUNTER 2018-10-27 17:23 | Emergency (ER) | payer MEDICARE, BC ==
[~2018-10-27] VITALS: Ht 170.2 cm; Wt 68.2 kg
[~2018-10-27 17:23] MED LIST changes: +FERR32TA PO; +GABA-1171 PO; +OXYCO5TA PO; +PANT40TA3 PO
[2018-10-27 18:45] VITALS: BP 154/69
== END 2018-10-27 19:08 | disposition home or self-care (01) ==
LOC: M ED 17:23
DX: S64.01XA Injury of ulnar nerve at wrist and hand level of right arm, initial encounter (principal); X58.XXXA Exposure to other specified factors, initial encounter; Y92.9 Unspecified place or not applicable; Y93.9 Activity, unspecified; Y99.9 Unspecified external cause status; M19.90 Unspecified osteoarthritis, unspecified site; Z79.01 Long term (current) use of anticoagulants; Z79.899 Other long term (current) drug therapy

== ENCOUNTER → 2021-11-20 | Outpatient (CLI) | payer MEDICARE, BC ==
[~2021-11-20] MED LIST changes: +ACET650T61 PO; -GLUCTAB6 PO; +GLUCTAB7 PO; +PANT40TA29 PO; -PANT40TA3 PO; -TYLE650T35 PO
== END ==
LOC: M LABSMTC 11:04
PROVIDERS: ATTEND Anesthesiology
DX: Z01.818 Encounter for other preprocedural examination (principal); Z11.52 Encounter for screening for COVID-19

== ENCOUNTER 2021-11-25 07:37 | Day surgery (SDC) | payer MEDICARE, BC ==
[~2021-11-25] VITALS: Ht 170.2 cm; Wt 63.5 kg
[~2021-11-25 07:37] MED LIST changes: +NS 1,000 ML IV ONE
[2021-11-25] MEDS ORDERED: propofoL 200 MG/20 ML VIAL As Ordered ONE ×2 (09:05→09:17)
[2021-11-25] MEDS ORDERED: LIDOCAINE 2% 100MG/5ML SDV (FOR ANES.) As Ordered ONE (09:05)
[2021-11-25] MEDS ORDERED: LABETALOL 100MG/20ML VIAL As Ordered ONE (09:19)
[2021-11-25] MEDS ORDERED: KETOROLAC 30 MG/ML 1ML VIAL IV ONE (10:30)
[2021-11-25 11:14] VITALS: BP 168/86
== END 2021-11-25 11:15 | disposition home or self-care (01) ==
LOC: M OPP 07:37
PROVIDERS: ATTEND Surgery
DX: C18.9 Malignant neoplasm of colon, unspecified (principal); K57.30 Diverticulosis of large intestine without perforation or abscess without bleeding; R19.5 Other fecal abnormalities; M81.0 Age-related osteoporosis without current pathological fracture; F17.200 Nicotine dependence, unspecified, uncomplicated; Z79.1 Long term (current) use of non-steroidal anti-inflammatories (NSAID)
CPT/HCPCS: 45380; 45381; 45385; 88305; J1885

== ENCOUNTER → 2021-11-30 | Outpatient (CLI) | payer MEDICARE, BC ==
[~2021-11-30] MED LIST changes: -NS 1,000 ML IV ONE
[2021-11-30 13:18] LABS: BLOOD UREA NITROGEN 10 MG/DL (7-18); CREATININE FOR GFR 0.56 MG/DL (0.55-1.30); GLOMERULAR FILTRATION RATE > 60.0 (>39)
== END ==
LOC: M LAB 11:56
PROVIDERS: ATTEND Surgery
DX: Z01.810 Encounter for preprocedural cardiovascular examination (principal)

== ENCOUNTER → 2021-12-01 | Outpatient (CLI) | payer MEDICARE, BC ==
[~2021-12-01] MED LIST changes: +GASTROGRAFIN SOLUTION 30ML (Q9963) As Ordered ONE; +ISOVUE-370 76% 100ML VIAL As Ordered ONE
== END ==
LOC: M RAD 15:57
PROVIDERS: ATTEND Surgery
DX: C18.9 Malignant neoplasm of colon, unspecified (principal)
CPT/HCPCS: 74178; Q9963; Q9967

== ENCOUNTER 2021-12-27 12:15 | Inpatient (IN) | payer MEDICARE, BC ==
[~2021-12-27] VITALS: Ht 170.2 cm; Wt 70.8 kg
[~2021-12-27 12:15] MED LIST changes: -GASTROGRAFIN SOLUTION 30ML (Q9963) As Ordered ONE; -ISOVUE-370 76% 100ML VIAL As Ordered ONE; +VITMTA PO
[2022-01-03] VITALS (9 sets, daily range): BP systolic 143–160; BP diastolic 75–85; O2SAT 95–96
[2022-01-03] MEDS ORDERED: ERTAPENEM SODIUM 1 GM in NS MINI-BAG PLUS 50 ML IV ONE (06:00)
[2022-01-03] MEDS ORDERED: LR 1,000 ML IV SCH ×2 (10:20→13:25)
[2022-01-03] MEDS ORDERED: HOME MED LIST COMPLETE! XX SCH (10:30)
[2022-01-03 10:42] LABS: HEMATOCRIT 42.5 % (36.0-47.0); HEMOGLOBIN 13.6 g/dl (12.0-15.5); MEAN CORPUSCULAR HEMOGLOBIN 30.4 pg (27.0-33.0); MEAN CORPUSCULAR VOLUME 95.1 fl (80.0-96.0); PLATELET COUNT, AUTOMATED 233 10^3/uL (150-450); RED BLOOD COUNT 4.47 10^6/uL (4.00-5.40); WHITE BLOOD COUNT 6.9 10^3/uL (4.0-10.0)
[2022-01-03] MEDS ORDERED: BUPIVACAINE/EPIN 0.25% 30 ML VIAL As Ordered ONE (11:00)
[2022-01-03] MEDS ORDERED: BUPIVACAINE LIPOSOME/PF 1.3% 20ML VIAL (13.3MG/ML)(EXPAREL) As Ordered ONE (11:00)
[2022-01-03] MEDS ORDERED: BUPIVACAINE HCL 0.25% 10ML VIAL As Ordered ONE (11:00)
[2022-01-03] MEDS ORDERED: METOCLOPRAMIDE INJ 10MG/2ML VIAL (J2765 PER 1) As Ordered ONE ×2 (11:27→12:19)
[2022-01-03] MEDS ORDERED: ROCURONIUM BROMIDE 50 MG/5 ML VIAL As Ordered ONE ×2 (11:27→12:25)
[2022-01-03] MEDS ORDERED: LIDOCAINE 2% 100MG/5ML SDV (FOR ANES.) As Ordered ONE (11:27)
[2022-01-03] MEDS ORDERED: ONDANSETRON 4MG 2ML VIAL As Ordered ONE (11:27)
[2022-01-03] MEDS ORDERED: MIDAZOLAM INJ 2MG/2ML VIAL (J2250 PER 1MG) As Ordered ONE (11:27)
[2022-01-03] MEDS ORDERED: dexameTHASONE 4 MG/ML 1ML VIAL (J1100 PER 1MG) As Ordered ONE (11:27)
[2022-01-03] MEDS ORDERED: fentaNYL 250 MCG/5 ML INJECTION As Ordered ONE (11:27)
[2022-01-03] MEDS ORDERED: propofoL 200 MG/20 ML VIAL As Ordered ONE (11:27)
[2022-01-03] MEDS ORDERED: SUGAMMADEX SODIUM 500 MG/5 ML VIAL (BRIDION) As Ordered ONE (11:27)
[2022-01-03 11:28] LABS: ALBUMIN 3.7 GM/DL (3.2-5.2); ALT/SGPT 22 U/L (12-78); BILIRUBIN,TOTAL 0.5 MG/DL (0.2-1.0); BLOOD UREA NITROGEN 9 MG/DL (7-18); CALCIUM LEVEL 9.3 MG/DL (8.8-10.2); CARBON DIOXIDE LEVEL 29 MEQ/L (21-32); CHLORIDE LEVEL 104 MEQ/L (98-107); CREATININE FOR GFR 0.54 MG/DL (0.55-1.30); GLOMERULAR FILTRATION RATE > 60.0 (>39); GLUCOSE, FASTING 91 MG/DL (70-100); POTASSIUM SERUM 3.7 MEQ/L (3.5-5.1); SODIUM LEVEL 138 MEQ/L (136-145); TOTAL PROTEIN 6.8 GM/DL (6.4-8.2)
[2022-01-03] MEDS ORDERED: ACETAMINOPHEN 1000MG 100ML IV BTL (OFIRMEV) (J0131 PER 10MG) As Ordered ONE (11:32)
[2022-01-03] MEDS ORDERED: LABETALOL 100MG/20ML VIAL As Ordered ONE (12:22)
[2022-01-03] MEDS ORDERED: HYDROmorphone HCL 2MG/ML 1ML VIAL As Ordered ONE (12:23)
[2022-01-03] MEDS ORDERED: IPRATROPIUM 0.5MG/ALBUTEROL 2.5MG INH SOL UD 3ML (DUONEB) NEB PRN (13:25)
[2022-01-03] MEDS ORDERED: ONDANSETRON 4MG 2ML VIAL IV PRN (13:25)
[2022-01-03] MEDS ORDERED: oxyCODONE 5MG TAB PO PRN (13:25)
[2022-01-03] MEDS ORDERED: MORPHINE 2 MG/ML 1ML VIAL IV PRN ×2 (13:25)
[2022-01-03] MEDS ORDERED: HYDROMORPHONE HCL 0.5 MG/ 0.5 ML SYRINGE (J1170 PER 1) IV PRN (13:25)
[2022-01-03] MEDS ORDERED: fentaNYL 100 MCG/2 ML INJECTION IV PRN (13:25)
[2022-01-03] MEDS ORDERED: KETOROLAC 30 MG/ML 1ML VIAL IV SCH (15:00)
[2022-01-03] MEDS: NS 1,000 ML IV SCH ×2 (16:12→23:30)
[2022-01-03] MEDS: ACETAMINOPHEN TAB 650MG DOSE (2X325MG) PO SCH (18:00)
[2022-01-03] MEDS: IPRATROPIUM 0.5MG/ALBUTEROL 2.5MG INH SOL UD 3ML (DUONEB) NEB SCH ×2 (18:01→20:14)
[2022-01-03] MEDS: KETOROLAC 30 MG/ML 1ML VIAL IV SCH (20:38)
[2022-01-03] MEDS: ALVIMOPAN 12 MG CAPSULE (ENTEREG) PO SCH (20:38)
[2022-01-03] MEDS: ONDANSETRON 4MG 2ML VIAL IV PRN (20:56)
[2022-01-04] VITALS (13 sets, daily range): BP systolic 121–154; BP diastolic 61–79; O2SAT 95–97
[2022-01-04] MEDS: KETOROLAC 30 MG/ML 1ML VIAL IV SCH ×4 (03:23→21:17)
[2022-01-04] MEDS: ACETAMINOPHEN TAB 650MG DOSE (2X325MG) PO SCH ×4 (05:28→17:12)
[2022-01-04 06:06] LABS: HEMATOCRIT 38.5 % (36.0-47.0); HEMOGLOBIN 12.1 g/dl (12.0-15.5); MEAN CORPUSCULAR HEMOGLOBIN 30.3 pg (27.0-33.0); MEAN CORPUSCULAR HGB CONC 31.4 g/dl (32.0-36.5); MEAN CORPUSCULAR VOLUME 96.3 fl (80.0-96.0); PLATELET COUNT, AUTOMATED 234 10^3/uL (150-450); WHITE BLOOD COUNT 13.6 10^3/uL (4.0-10.0)
[2022-01-04 06:34] LABS: BLOOD UREA NITROGEN 11 MG/DL (7-18); CALCIUM LEVEL 8.4 MG/DL (8.8-10.2); CARBON DIOXIDE LEVEL 28 MEQ/L (21-32); CHLORIDE LEVEL 104 MEQ/L (98-107); CREATININE FOR GFR 0.52 MG/DL (0.55-1.30); GLOMERULAR FILTRATION RATE > 60.0 (>39); GLUCOSE, FASTING 108 MG/DL (70-100); POTASSIUM SERUM 3.9 MEQ/L (3.5-5.1); SODIUM LEVEL 138 MEQ/L (136-145)
[2022-01-04] MEDS: IPRATROPIUM 0.5MG/ALBUTEROL 2.5MG INH SOL UD 3ML (DUONEB) NEB SCH ×4 (07:33→20:57)
[2022-01-04] MEDS: NS 1,000 ML IV SCH ×2 (08:21→17:14)
[2022-01-04] MEDS ORDERED: ERTAPENEM SODIUM 1 GM in NS MINI-BAG PLUS 50 ML IV ONE (09:00)
[2022-01-04] MEDS: ALVIMOPAN 12 MG CAPSULE (ENTEREG) PO SCH ×2 (09:03→21:18)
[2022-01-04] MEDS: PANTOPRAZOLE 40MG VIAL IV SCH (09:03)
[2022-01-04] MEDS ORDERED: NS 500 ML IV ONE (13:45)
[2022-01-04] MEDS ORDERED: ISOVUE-370 76% 100ML VIAL As Ordered ONE ×2 (13:45→14:03)
[2022-01-04] MEDS ORDERED: ASPIRIN 325 MG TAB PO ONE ×2 (13:50→18:05)
[2022-01-04] MEDS ORDERED: ATORVASTATIN 20 MG TAB PO SCH (14:00)
[2022-01-04 14:32] LABS: CHOLESTEROL RISK RATIO 2.307 (<5); THYROID STIMULATING HORMONE 0.667 uIU/ML (0.358-3.740)
[2022-01-04] MEDS: ONDANSETRON 4MG 2ML VIAL IV PRN ×2 (14:34→21:17)
[2022-01-04 15:38] LABS: HEMOGLOBIN A1c 5.4 %
[2022-01-04] MEDS ORDERED: ASPIRIN 300 MG SUPP PR ONE (18:00)
[2022-01-04] MEDS: ATORVASTATIN 20 MG TAB PO SCH (21:17)
[2022-01-05] VITALS (19 sets, daily range): BP systolic 140–179; BP diastolic 72–83; O2SAT 85–96
[2022-01-05] MEDS: NS 1,000 ML IV SCH ×3 (00:28→14:06)
[2022-01-05] MEDS: ACETAMINOPHEN TAB 650MG DOSE (2X325MG) PO SCH ×4 (00:29→18:00)
[2022-01-05] MEDS: IPRATROPIUM 0.5MG/ALBUTEROL 2.5MG INH SOL UD 3ML (DUONEB) NEB SCH ×4 (02:00→19:38)
[2022-01-05] MEDS: KETOROLAC 30 MG/ML 1ML VIAL IV SCH ×4 (04:41→21:32)
[2022-01-05 06:07] LABS: HEMATOCRIT 34.5 % (36.0-47.0); HEMOGLOBIN 11.1 g/dl (12.0-15.5); MEAN CORPUSCULAR HEMOGLOBIN 31.3 pg (27.0-33.0); MEAN CORPUSCULAR HGB CONC 32.2 g/dl (32.0-36.5); MEAN CORPUSCULAR VOLUME 97.2 fl (80.0-96.0); PLATELET COUNT, AUTOMATED 204 10^3/uL (150-450); RED BLOOD COUNT 3.55 10^6/uL (4.00-5.40)
[2022-01-05 06:44] LABS: BLOOD UREA NITROGEN 12 MG/DL (7-18); CALCIUM LEVEL 8.2 MG/DL (8.8-10.2); CARBON DIOXIDE LEVEL 27 MEQ/L (21-32); CHLORIDE LEVEL 110 MEQ/L (98-107); CREATININE FOR GFR 0.38 MG/DL (0.55-1.30); GLOMERULAR FILTRATION RATE > 60.0 (>39); GLUCOSE, FASTING 85 MG/DL (70-100); POTASSIUM SERUM 3.8 MEQ/L (3.5-5.1); SODIUM LEVEL 141 MEQ/L (136-145)
[2022-01-05] MEDS: PANTOPRAZOLE 40MG VIAL IV SCH (08:31)
[2022-01-05] MEDS: ASPIRIN 81 MG CHEW TABLET PO SCH (08:31)
[2022-01-05] MEDS: ALVIMOPAN 12 MG CAPSULE (ENTEREG) PO SCH ×2 (08:44→21:00)
[2022-01-05] MEDS ORDERED: CLOPIDOGREL 75 MG TAB PO SCH (09:00)
[2022-01-05] MEDS ORDERED: ACET1TAB55 PO (17:42)
[2022-01-05] MEDS ORDERED: AMLO1TAB24 PO (17:42)
[2022-01-05] MEDS ORDERED: ELIQ5TAB PO (17:42)
[2022-01-05] MEDS: ATORVASTATIN 20 MG TAB PO SCH (21:32)
[2022-01-05] MEDS: HEPARIN SOD (PORCINE) 5000UNITS/ML 1ML VIAL/SYRINGE SQ SCH (21:32)
[2022-01-06] MEDS: ACETAMINOPHEN TAB 650MG DOSE (2X325MG) PO SCH ×3 (00:41→11:06)
[2022-01-06] MEDS: IPRATROPIUM 0.5MG/ALBUTEROL 2.5MG INH SOL UD 3ML (DUONEB) NEB SCH ×3 (01:41→13:04)
[2022-01-06] MEDS: KETOROLAC 30 MG/ML 1ML VIAL IV SCH ×2 (04:08→09:01)
[2022-01-06 04:34] VITALS: BP 154/70
[2022-01-06] MEDS: HEPARIN SOD (PORCINE) 5000UNITS/ML 1ML VIAL/SYRINGE SQ SCH ×2 (05:53→14:49)
[2022-01-06 06:16] LABS: HEMATOCRIT 35.4 % (36.0-47.0); HEMOGLOBIN 11.3 g/dl (12.0-15.5); MEAN CORPUSCULAR HEMOGLOBIN 30.5 pg (27.0-33.0); MEAN CORPUSCULAR HGB CONC 31.9 g/dl (32.0-36.5); MEAN CORPUSCULAR VOLUME 95.7 fl (80.0-96.0); PLATELET COUNT, AUTOMATED 208 10^3/uL (150-450); WHITE BLOOD COUNT 8.8 10^3/uL (4.0-10.0)
[2022-01-06 06:36] LABS: BLOOD UREA NITROGEN 5 MG/DL (7-18); CALCIUM LEVEL 8.4 MG/DL (8.8-10.2); CARBON DIOXIDE LEVEL 31 MEQ/L (21-32); CHLORIDE LEVEL 104 MEQ/L (98-107); CREATININE FOR GFR 0.31 MG/DL (0.55-1.30); GLOMERULAR FILTRATION RATE > 60.0 (>39); GLUCOSE, FASTING 94 MG/DL (70-100); SODIUM LEVEL 141 MEQ/L (136-145)
[2022-01-06] MEDS ORDERED: POTASSIUM CHLORIDE 10MEQ SR TABLET PO ONE (07:45)
[2022-01-06] MEDS ORDERED: KCL 10MEQ/100ML SWI (KRUN) 10 MEQ in IV 1 EA IV SCH (08:00)
[2022-01-06] MEDS ORDERED: POTASSIUM CHLORIDE 10% LIQ 20 MEQ/15 ML UDC PO ONE (08:10)
[2022-01-06 08:32] VITALS: BP 160/80
[2022-01-06] MEDS: PANTOPRAZOLE 40MG VIAL IV SCH (09:00)
[2022-01-06] MEDS: ALVIMOPAN 12 MG CAPSULE (ENTEREG) PO SCH (09:02)
[2022-01-06] MEDS: POTASSIUM CHLORIDE 10% LIQ 20 MEQ/15 ML UDC PO SCH ×2 (09:02→11:05)
[2022-01-06] MEDS: ASPIRIN 81 MG CHEW TABLET PO SCH (09:02)
[2022-01-06 13:27] VITALS: BP 148/88
[2022-01-06 14:50] VITALS: BP 145/76
[2022-01-06] MEDS ORDERED: amLODIPine 5 MG TAB PO SCH (15:00)
[2022-01-09] MEDS ORDERED: APIXABAN 5 MG TAB (ELIQUIS) PO SCH (09:00)
[2022-01-24] MEDS ORDERED: SUCR1TA PO (13:52)
[2022-01-24] MEDS ORDERED: GUAI100L6 PO (13:53)
[2022-01-24] MEDS ORDERED: LEVO1TAB38 PO (13:54)
== END 2022-01-06 15:05 | DRG 329 ==
LOC: M OR 01-03 09:04 → M MSPAV 01-03 15:28 → M PCU 01-04 13:33
PROVIDERS: ADMIT Surgery; ATTEND Surgery
PROC: 0DTF4ZZ Resection of Right Large Intestine, Percutaneous Endoscopic Approach (ICD-10-PCS; principal; 2022-01-03 10:55)
DX: C18.2 Malignant neoplasm of ascending colon (principal); I63.59 Cerebral infarction due to unspecified occlusion or stenosis of other cerebral artery; G81.91 Hemiplegia, unspecified affecting right dominant side; F17.200 Nicotine dependence, unspecified, uncomplicated; I48.91 Unspecified atrial fibrillation; M81.0 Age-related osteoporosis without current pathological fracture; R47.81 Slurred speech; E78.5 Hyperlipidemia, unspecified; M54.31 Sciatica, right side; E55.9 Vitamin D deficiency, unspecified; Z98.41 Cataract extraction status, right eye; Z98.42 Cataract extraction status, left eye; Z96.642 Presence of left artificial hip joint

== ENCOUNTER → 2022-01-01 | Outpatient (CLI) | payer MEDICARE, BC | LOC: M LABSMTC 10:41 | PROVIDERS: ATTEND Anesthesiology | DX: Z01.818 Encounter for other preprocedural examination (principal); Z11.52 Encounter for screening for COVID-19 ==

== ENCOUNTER 2022-01-06 14:16 | Inpatient (IN) | payer MEDICARE, BC ==
[~2022-01-06] VITALS: Ht 170.2 cm; Wt 64.3 kg
[~2022-01-06 14:16] MED LIST changes: +ACET1TAB55 PO; +AMLO1TAB24 PO; +ELIQ5TAB PO
[2022-01-06 15:15] VITALS: BP 142/82
[2022-01-06] MEDS ORDERED: HOME MED LIST COMPLETE! XX SCH (16:15)
[2022-01-06] MEDS: ACETAMINOPHEN TAB 650MG DOSE (2X325MG) PO SCH ×2 (18:00→21:10)
[2022-01-06 19:12] LABS: APPEARANCE, URINE MANUAL HAZY (CLEAR); COLOR, URINE MANUAL LT YELLOW (YELLOW)
[2022-01-06 19:15] LABS: BILIRUBIN, URINE MANUAL NEGATIVE (NEGATIVE); BLOOD URINE MANUAL POSITIVE (NEGATIVE); GLUCOSE, URINE (UA) MANUAL NEGATIVE (NEGATIVE); KETONE, URINE MANUAL 1+ mg/dL (NEGATIVE); LEUKOCYTE ESTERASE, URINE MAN NEGATIVE (NEGATIVE); NITRITE, URINE MANUAL NEGATIVE (NEGATIVE); PROTEIN, URINE MANUAL NEGATIVE (NEGATIVE); SPECIFIC GRAVITY,URINE MANUAL 1.005 (1.002-1.035); UROBILINOGEN, URINE MANUAL NORMAL (NORMAL)
[2022-01-06 20:00] VITALS: BP 158/72
[2022-01-06 20:59] LABS: AMORPHOUS SEDIMENT, URINE SMALL AMOUNT (NEGATIVE); BACTERIA, URINE NONE SEEN; HYALINE CAST, URINE NONE SEEN /lpf (0-1); MUCUS, URINE SMALL AMOUNT (NEGATIVE); SQUAMOUS EPITHELIAL CELL URINE SMALL AMOUNT /hpf (SMALL AMT); WBC, URINE NONE SEEN /hpf (0-3)
[2022-01-07] MEDS: ACETAMINOPHEN TAB 650MG DOSE (2X325MG) PO SCH ×4 (05:33→23:33)
[2022-01-07 06:00] VITALS: BP 146/77
[2022-01-07 06:58] LABS: BASO # 0.1 10^3/uL (0.0-0.2); BASO % 0.8 % (0.0-1.0); EOS # 0.1 10^3/uL (0.0-0.5); EOS % 1.4 % (0.0-3.0); HEMATOCRIT 36.9 % (36.0-47.0); HEMOGLOBIN 11.8 g/dl (12.0-15.5); LYMPH # 1.3 10^3/uL (1.5-5.0); LYMPH % 16.1 % (24.0-44.0); MEAN CORPUSCULAR HEMOGLOBIN 29.9 pg (27.0-33.0); MEAN CORPUSCULAR VOLUME 93.7 fl (80.0-96.0); MONO # 0.7 10^3/uL (0.0-0.8); MONO % 8.7 % (2.0-8.0); NEUTROPHILS # 5.8 10^3/uL (1.5-8.5); NEUTROPHILS % 72.7 % (36.0-66.0); PLATELET COUNT, AUTOMATED 223 10^3/uL (150-450); RED BLOOD COUNT 3.94 10^6/uL (4.00-5.40); WHITE BLOOD COUNT 7.9 10^3/uL (4.0-10.0)
[2022-01-07 07:32] LABS: ALBUMIN 2.7 GM/DL (3.2-5.2); ALT/SGPT 18 U/L (12-78); BILIRUBIN,TOTAL 0.5 MG/DL (0.2-1.0); BLOOD UREA NITROGEN 10 MG/DL (7-18); CALCIUM LEVEL 8.7 MG/DL (8.8-10.2); CARBON DIOXIDE LEVEL 34 MEQ/L (21-32); CHLORIDE LEVEL 104 MEQ/L (98-107); CREATININE FOR GFR 0.33 MG/DL (0.55-1.30); GLOMERULAR FILTRATION RATE > 60.0 (>39); GLUCOSE, FASTING 98 MG/DL (70-100); POTASSIUM SERUM 3.6 MEQ/L (3.5-5.1); SODIUM LEVEL 139 MEQ/L (136-145); TOTAL PROTEIN 5.5 GM/DL (6.4-8.2)
[2022-01-07] MEDS: amLODIPine 5 MG TAB PO SCH (08:09)
[2022-01-07] MEDS: DOCUSATE SODIUM 100MG CAPSULE PO SCH (08:10)
[2022-01-07] MEDS: HEPARIN SOD (PORCINE) 5000UNITS/ML 1ML VIAL/SYRINGE SQ SCH ×2 (08:10→20:20)
[2022-01-07] MEDS ORDERED: ASPIRIN 81 MG CHEW TABLET PO ONE (11:15)
[2022-01-07] MEDS: LACTOBACILLUS ACIDOPHILUS CAP (BACID) PO SCH ×2 (12:05→17:59)
[2022-01-07] MEDS: METOPROLOL TART 12.5 MG PER 1/2 TAB PO SCH (12:07)
[2022-01-07 14:00] VITALS: BP 131/72
[2022-01-07] MEDS ORDERED: MORPHINE 4 MG/ML 1ML VIAL/SYRINGE IV PRN (14:35)
[2022-01-07 19:42] VITALS: BP 128/74
[2022-01-07] MEDS: ATORVASTATIN 20 MG TAB PO SCH (20:19)
[2022-01-07] MEDS ORDERED: BACLOFEN 5MG PER 1/2 TABLET PO PRN (21:00)
[2022-01-07] MEDS: KETOROLAC 30 MG/ML 1ML VIAL IV PRN ×2 (23:27→23:32)
[2022-01-08 05:56] VITALS: BP 130/66
[2022-01-08] MEDS: ACETAMINOPHEN TAB 650MG DOSE (2X325MG) PO SCH ×4 (06:00→23:09)
[2022-01-08 07:07] LABS: INR 0.95; PROTHROMBIN TIME 13.1 SECONDS (12.7-14.5)
[2022-01-08 07:28] LABS: ALBUMIN 2.6 GM/DL (3.2-5.2); ALT/SGPT 19 U/L (12-78); BILIRUBIN,TOTAL 0.5 MG/DL (0.2-1.0); BLOOD UREA NITROGEN 18 MG/DL (7-18); CALCIUM LEVEL 9.1 MG/DL (8.8-10.2); CARBON DIOXIDE LEVEL 29 MEQ/L (21-32); CHLORIDE LEVEL 106 MEQ/L (98-107); CREATININE FOR GFR 0.38 MG/DL (0.55-1.30); GLOMERULAR FILTRATION RATE > 60.0 (>39); GLUCOSE, FASTING 94 MG/DL (70-100); POTASSIUM SERUM 3.2 MEQ/L (3.5-5.1); SODIUM LEVEL 141 MEQ/L (136-145); TOTAL PROTEIN 5.8 GM/DL (6.4-8.2)
[2022-01-08] MEDS: DOCUSATE SODIUM 100MG CAPSULE PO SCH (08:24)
[2022-01-08] MEDS: KETOROLAC 30 MG/ML 1ML VIAL IV PRN (08:25)
[2022-01-08] MEDS: amLODIPine 5 MG TAB PO SCH (08:26)
[2022-01-08] MEDS: HEPARIN SOD (PORCINE) 5000UNITS/ML 1ML VIAL/SYRINGE SQ SCH ×2 (08:26→20:07)
[2022-01-08] MEDS: METOPROLOL TART 12.5 MG PER 1/2 TAB PO SCH (08:27)
[2022-01-08] MEDS: LACTOBACILLUS ACIDOPHILUS CAP (BACID) PO SCH ×2 (08:27→17:35)
[2022-01-08 20:00] VITALS: BP 159/89
[2022-01-08] MEDS: ATORVASTATIN 20 MG TAB PO SCH (20:08)
[2022-01-08 22:10] VITALS: BP 136/64
[2022-01-09] MEDS: ACETAMINOPHEN TAB 650MG DOSE (2X325MG) PO SCH (05:48)
[2022-01-09 06:00] VITALS: BP 140/75
[2022-01-09] MEDS ORDERED: ACETAMINOPHEN TAB 650MG DOSE (2X325MG) PO PRN (08:15)
[2022-01-09] MEDS: METOPROLOL TART 12.5 MG PER 1/2 TAB PO SCH (08:21)
[2022-01-09] MEDS: LACTOBACILLUS ACIDOPHILUS CAP (BACID) PO SCH ×2 (08:21→18:00)
[2022-01-09] MEDS: DOCUSATE SODIUM 100MG CAPSULE PO SCH (08:21)
[2022-01-09] MEDS: APIXABAN 5 MG TAB (ELIQUIS) PO SCH ×2 (08:21→20:35)
[2022-01-09] MEDS: amLODIPine 5 MG TAB PO SCH (08:21)
[2022-01-09] MEDS: PERCOCET 5MG/325MG TAB PO PRN ×2 (09:28→15:39)
[2022-01-09 10:00] VITALS: BP_SYST 100; BP_SYST 110; BP_SYST 90; BP_DIAS 78; BP_DIAS 90
[2022-01-09 14:00] VITALS: BP 116/68
[2022-01-09] MEDS ORDERED: ACETAMINOPHEN 325 MG/10.15 ML UDC PO PRN (15:40)
[2022-01-09 20:00] VITALS: BP 115/62
[2022-01-09] MEDS: GABAPENTIN 100 MG CAP PO SCH (20:35)
[2022-01-09] MEDS: ATORVASTATIN 20 MG TAB PO SCH (20:35)
[2022-01-10 06:00] VITALS: BP 128/69
[2022-01-10] MEDS: PERCOCET 5MG/325MG TAB PO PRN ×2 (07:02→18:42)
[2022-01-10] MEDS: ONDANSETRON 4MG TAB PO PRN (08:47)
[2022-01-10] MEDS: METOPROLOL TART 12.5 MG PER 1/2 TAB PO SCH (09:00)
[2022-01-10] MEDS: LACTOBACILLUS ACIDOPHILUS CAP (BACID) PO SCH ×2 (09:37→17:24)
[2022-01-10] MEDS: DOCUSATE SODIUM 100MG CAPSULE PO SCH (09:37)
[2022-01-10] MEDS: APIXABAN 5 MG TAB (ELIQUIS) PO SCH ×2 (09:37→20:07)
[2022-01-10 10:07] LABS: BLOOD UREA NITROGEN 15 MG/DL (7-18); CARBON DIOXIDE LEVEL 29 MEQ/L (21-32); CHLORIDE LEVEL 105 MEQ/L (98-107); CREATININE FOR GFR 0.61 MG/DL (0.55-1.30); GLOMERULAR FILTRATION RATE > 60.0 (>39); GLUCOSE, FASTING 140 MG/DL (70-100); POTASSIUM SERUM 3.2 MEQ/L (3.5-5.1); SODIUM LEVEL 140 MEQ/L (136-145)
[2022-01-10 14:26] VITALS: BP 140/60
[2022-01-10] MEDS ORDERED: POTASSIUM CHLORIDE 10MEQ SR TABLET PO ONE (19:25)
[2022-01-10 19:26] VITALS: BP 125/64
[2022-01-10] MEDS: ATORVASTATIN 20 MG TAB PO SCH (20:05)
[2022-01-10] MEDS: GABAPENTIN 100 MG CAP PO SCH (20:07)
[2022-01-11 05:50] VITALS: BP 120/68
[2022-01-11] MEDS: DOCUSATE SODIUM 100MG CAPSULE PO SCH (07:12)
[2022-01-11] MEDS: APIXABAN 5 MG TAB (ELIQUIS) PO SCH ×2 (07:12→20:14)
[2022-01-11] MEDS: LACTOBACILLUS ACIDOPHILUS CAP (BACID) PO SCH ×2 (07:13→17:36)
[2022-01-11] MEDS: METOPROLOL TART 12.5 MG PER 1/2 TAB PO SCH (07:13)
[2022-01-11] MEDS: PERCOCET 5MG/325MG TAB PO PRN (09:06)
[2022-01-11 10:27] LABS: BLOOD UREA NITROGEN 18 MG/DL (7-18); CALCIUM LEVEL 9.2 MG/DL (8.8-10.2); CARBON DIOXIDE LEVEL 28 MEQ/L (21-32); CHLORIDE LEVEL 103 MEQ/L (98-107); CREATININE FOR GFR 0.56 MG/DL (0.55-1.30); GLOMERULAR FILTRATION RATE > 60.0 (>39); GLUCOSE, FASTING 127 MG/DL (70-100); POTASSIUM SERUM 4.2 MEQ/L (3.5-5.1); SODIUM LEVEL 137 MEQ/L (136-145)
[2022-01-11] MEDS ORDERED: ACETAMINOPHEN 325 MG/10.15 ML UDC PO PRN (10:35)
[2022-01-11] MEDS: ONDANSETRON 4MG TAB PO PRN (11:48)
[2022-01-11 14:00] VITALS: BP 121/68
[2022-01-11] MEDS ORDERED: PERCOCET 5MG/325MG TAB PO PRN (16:00)
[2022-01-11] MEDS ORDERED: MOM 30ML SUSPENSION UDC PO ONE (16:00)
[2022-01-11 20:00] VITALS: BP 136/72
[2022-01-11] MEDS: GABAPENTIN 100 MG CAP PO SCH (20:14)
[2022-01-11] MEDS: FAMOTIDINE 20 MG TAB PO SCH (20:14)
[2022-01-11] MEDS: ATORVASTATIN 20 MG TAB PO SCH (20:16)
[2022-01-11] MEDS ORDERED: OMEPRAZOLE 20MG CAP PO SCH (21:00)
[2022-01-12 06:00] VITALS: BP 119/68
[2022-01-12] MEDS: METOPROLOL TART 12.5 MG PER 1/2 TAB PO SCH (07:07)
[2022-01-12 07:12] LABS: BASO # 0.1 10^3/uL (0.0-0.2); BASO % 0.7 % (0.0-1.0); EOS # 0.3 10^3/uL (0.0-0.5); EOS % 2.7 % (0.0-3.0); HEMATOCRIT 33.6 % (36.0-47.0); LYMPH % 19.6 % (24.0-44.0); MEAN CORPUSCULAR HEMOGLOBIN 31.3 pg (27.0-33.0); MEAN CORPUSCULAR HGB CONC 32.7 g/dl (32.0-36.5); MEAN CORPUSCULAR VOLUME 95.7 fl (80.0-96.0); MONO # 1.1 10^3/uL (0.0-0.8); MONO % 10.6 % (2.0-8.0); NEUTROPHILS # 6.7 10^3/uL (1.5-8.5); NEUTROPHILS % 65.8 % (36.0-66.0); PLATELET COUNT, AUTOMATED 329 10^3/uL (150-450); RED BLOOD COUNT 3.51 10^6/uL (4.00-5.40); WHITE BLOOD COUNT 10.1 10^3/uL (4.0-10.0)
[2022-01-12] MEDS: APIXABAN 5 MG TAB (ELIQUIS) PO SCH ×2 (07:19→20:26)
[2022-01-12] MEDS: LACTOBACILLUS ACIDOPHILUS CAP (BACID) PO SCH ×2 (07:20→16:49)
[2022-01-12] MEDS: DOCUSATE SODIUM 100MG CAPSULE PO SCH (07:20)
[2022-01-12] MEDS ORDERED: GLYCERIN ADULT SUPP PR PRN (07:45)
[2022-01-12 07:56] LABS: ALT/SGPT 100 U/L (12-78); BILIRUBIN,TOTAL 0.4 MG/DL (0.2-1.0); BLOOD UREA NITROGEN 11 MG/DL (7-18); CALCIUM LEVEL 9.2 MG/DL (8.8-10.2); CARBON DIOXIDE LEVEL 30 MEQ/L (21-32); CHLORIDE LEVEL 103 MEQ/L (98-107); CREATININE FOR GFR 0.56 MG/DL (0.55-1.30); GLOMERULAR FILTRATION RATE > 60.0 (>39); GLUCOSE, FASTING 96 MG/DL (70-100); POTASSIUM SERUM 4.6 MEQ/L (3.5-5.1); SODIUM LEVEL 137 MEQ/L (136-145); TOTAL PROTEIN 6.1 GM/DL (6.4-8.2)
[2022-01-12] MEDS: ACETAMINOPHEN 650MG ER TAB (TYLENOL ARTHRITIS) PO PRN ×2 (08:48→16:49)
[2022-01-12 12:27] LABS: INR 1.39; PROTHROMBIN TIME 17.3 SECONDS (12.5-14.5)
[2022-01-12 12:28] LABS: PARTIAL THROMBOPLASTIN TIME 31.2 SECONDS (24.8-34.2)
[2022-01-12 13:58] LABS: HEPATITIS B CORE ANTIBODY IGM NEGATIVE (NEGATIVE); HEPATITIS B SURFACE ANTIGEN NEGATIVE (NEGATIVE); HEPATITIS C VIRUS ABY INDEX < 0.0 INDEX (<0.8)
[2022-01-12 14:00] VITALS: BP 148/80
[2022-01-12] MEDS ORDERED: ASPIRIN 81 MG CHEW TABLET PO ONE (15:00)
[2022-01-12 15:06] LABS: CHOLESTEROL LEVEL 116 MG/DL (<200); CHOLESTEROL RISK RATIO 2.274 (<5); HDL CHOLESTEROL 51 MG/DL (>40); LDL CHOLESTEROL 33 MG/DL (<100); NON-HDL-C 65 MG/DL; TRIGLYCERIDES LEVEL 159 MG/DL (<150)
[2022-01-12 20:00] VITALS: BP 120/64
[2022-01-12] MEDS: FAMOTIDINE 20 MG TAB PO SCH (20:25)
[2022-01-12] MEDS: GABAPENTIN 100 MG CAP PO SCH (20:26)
[2022-01-12] MEDS: ATORVASTATIN 20 MG TAB PO SCH (20:26)
[2022-01-13 05:51] LABS: BASO # 0.1 10^3/uL (0.0-0.2); BASO % 0.7 % (0.0-1.0); EOS # 0.2 10^3/uL (0.0-0.5); EOS % 2.6 % (0.0-3.0); HEMATOCRIT 30.3 % (36.0-47.0); HEMOGLOBIN 9.8 g/dl (12.0-15.5); LYMPH # 1.8 10^3/uL (1.5-5.0); MEAN CORPUSCULAR HEMOGLOBIN 30.8 pg (27.0-33.0); MEAN CORPUSCULAR HGB CONC 32.3 g/dl (32.0-36.5); MEAN CORPUSCULAR VOLUME 95.3 fl (80.0-96.0); MONO # 1.1 10^3/uL (0.0-0.8); NEUTROPHILS # 4.9 10^3/uL (1.5-8.5); NEUTROPHILS % 61.3 % (36.0-66.0); PLATELET COUNT, AUTOMATED 322 10^3/uL (150-450); RED BLOOD COUNT 3.18 10^6/uL (4.00-5.40); WHITE BLOOD COUNT 8.1 10^3/uL (4.0-10.0)
[2022-01-13 06:00] VITALS: BP 116/65
[2022-01-13] MEDS ORDERED: METOPROLOL TART 12.5 MG PER 1/2 TAB PO SCH ×2 (06:00)
[2022-01-13 06:38] LABS: ALBUMIN 2.7 GM/DL (3.2-5.2); ALT/SGPT 67 U/L (12-78); BILIRUBIN,TOTAL 0.3 MG/DL (0.2-1.0); BLOOD UREA NITROGEN 11 MG/DL (7-18); CALCIUM LEVEL 8.7 MG/DL (8.8-10.2); CARBON DIOXIDE LEVEL 31 MEQ/L (21-32); CHLORIDE LEVEL 106 MEQ/L (98-107); CREATININE FOR GFR 0.48 MG/DL (0.55-1.30); GLOMERULAR FILTRATION RATE > 60.0 (>39); GLUCOSE, FASTING 89 MG/DL (70-100); POTASSIUM SERUM 4.4 MEQ/L (3.5-5.1); SODIUM LEVEL 140 MEQ/L (136-145); TOTAL PROTEIN 5.4 GM/DL (6.4-8.2)
[2022-01-13 08:19] VITALS: BP 118/70
[2022-01-13] MEDS: DOCUSATE SODIUM 100MG CAPSULE PO SCH (08:20)
[2022-01-13] MEDS: ASPIRIN 81 MG CHEW TABLET PO SCH (08:39)
[2022-01-13] MEDS: LACTOBACILLUS ACIDOPHILUS CAP (BACID) PO SCH ×2 (08:39→18:16)
[2022-01-13] MEDS: APIXABAN 5 MG TAB (ELIQUIS) PO SCH ×2 (08:39→20:40)
[2022-01-13] MEDS: ACETAMINOPHEN 650MG ER TAB (TYLENOL ARTHRITIS) PO PRN ×2 (08:52→21:05)
[2022-01-13] MEDS ORDERED: METOPROLOL SUCC *XL* 25MG TAB (TopROL *XL*) PO ONE (09:00)
[2022-01-13] MEDS ORDERED: busPIRone 5 MG TAB PO PRN (09:40)
[2022-01-13 14:00] VITALS: BP 101/67
[2022-01-13 20:00] VITALS: BP 114/64
[2022-01-13] MEDS: GABAPENTIN 100 MG CAP PO SCH (20:40)
[2022-01-13] MEDS: FAMOTIDINE 20 MG TAB PO SCH (20:40)
[2022-01-13] MEDS: FERROUS GLUCONATE 324 MG TAB PO SCH (20:40)
[2022-01-13] MEDS: ATORVASTATIN 20 MG TAB PO SCH (20:40)
[2022-01-14] VITALS (9 sets, daily range): BP systolic 102–128; BP diastolic 60–80
[2022-01-14] MEDS: ASPIRIN 81 MG CHEW TABLET PO SCH (08:18)
[2022-01-14] MEDS: FERROUS GLUCONATE 324 MG TAB PO SCH ×2 (08:18→20:37)
[2022-01-14] MEDS: APIXABAN 5 MG TAB (ELIQUIS) PO SCH ×2 (08:18→20:38)
[2022-01-14] MEDS: LACTOBACILLUS ACIDOPHILUS CAP (BACID) PO SCH ×2 (08:19→17:58)
[2022-01-14] MEDS: DOCUSATE SODIUM 100MG CAPSULE PO SCH (08:19)
[2022-01-14 08:25] LABS: ALBUMIN 2.8 GM/DL (3.2-5.2); ALT/SGPT 56 U/L (12-78); BILIRUBIN,TOTAL 0.2 MG/DL (0.2-1.0); BLOOD UREA NITROGEN 12 MG/DL (7-18); CARBON DIOXIDE LEVEL 32 MEQ/L (21-32); CHLORIDE LEVEL 106 MEQ/L (98-107); CREATININE FOR GFR 0.48 MG/DL (0.55-1.30); GLOMERULAR FILTRATION RATE > 60.0 (>39); GLUCOSE, FASTING 89 MG/DL (70-100); POTASSIUM SERUM 4.6 MEQ/L (3.5-5.1); SODIUM LEVEL 140 MEQ/L (136-145); TOTAL PROTEIN 6.1 GM/DL (6.4-8.2)
[2022-01-14] MEDS ORDERED: METOPROLOL SUCC *XL* 12.5MG PER 1/2 TAB (TopROL *XL*) PO SCH (09:00)
[2022-01-14] MEDS: METOPROLOL TART 25 MG TABLET PO SCH ×2 (09:55→20:37)
[2022-01-14] MEDS: ACETAMINOPHEN 650MG ER TAB (TYLENOL ARTHRITIS) PO PRN ×2 (13:41→20:37)
[2022-01-14] MEDS: GABAPENTIN 100 MG CAP PO SCH (20:37)
[2022-01-14] MEDS: ATORVASTATIN 20 MG TAB PO SCH (20:38)
[2022-01-14] MEDS: FAMOTIDINE 20 MG TAB PO SCH (20:38)
[2022-01-15] VITALS (9 sets, daily range): BP systolic 102–122; BP diastolic 60–78
[2022-01-15] MEDS: APIXABAN 5 MG TAB (ELIQUIS) PO SCH ×2 (08:15→21:39)
[2022-01-15] MEDS: LACTOBACILLUS ACIDOPHILUS CAP (BACID) PO SCH ×2 (08:15→17:45)
[2022-01-15] MEDS: FERROUS GLUCONATE 324 MG TAB PO SCH ×2 (08:15→21:39)
[2022-01-15] MEDS: DOCUSATE SODIUM 100MG CAPSULE PO SCH (08:16)
[2022-01-15] MEDS: ASPIRIN 81 MG CHEW TABLET PO SCH (08:16)
[2022-01-15] MEDS: METOPROLOL TART 25 MG TABLET PO SCH ×2 (08:16→21:39)
[2022-01-15] MEDS: ACETAMINOPHEN 650MG ER TAB (TYLENOL ARTHRITIS) PO PRN ×2 (08:18→21:44)
[2022-01-15] MEDS: ATORVASTATIN 20 MG TAB PO SCH (21:39)
[2022-01-15] MEDS: GABAPENTIN 100 MG CAP PO SCH (21:39)
[2022-01-15] MEDS: FAMOTIDINE 20 MG TAB PO SCH (21:39)
[2022-01-16 06:00] VITALS: BP 122/78
[2022-01-16 07:32] LABS: ALBUMIN 2.8 GM/DL (3.2-5.2); ALT/SGPT 36 U/L (12-78); BILIRUBIN,TOTAL 0.6 MG/DL (0.2-1.0); BLOOD UREA NITROGEN 10 MG/DL (7-18); CALCIUM LEVEL 9.1 MG/DL (8.8-10.2); CARBON DIOXIDE LEVEL 29 MEQ/L (21-32); CHLORIDE LEVEL 108 MEQ/L (98-107); CREATININE FOR GFR 0.47 MG/DL (0.55-1.30); GLOMERULAR FILTRATION RATE > 60.0 (>39); GLUCOSE, FASTING 82 MG/DL (70-100); POTASSIUM SERUM 4.6 MEQ/L (3.5-5.1); SODIUM LEVEL 141 MEQ/L (136-145)
[2022-01-16] MEDS: ACETAMINOPHEN 650MG ER TAB (TYLENOL ARTHRITIS) PO PRN (08:28)
[2022-01-16] MEDS: METOPROLOL TART 25 MG TABLET PO SCH ×2 (08:32→20:10)
[2022-01-16] MEDS: DOCUSATE SODIUM 100MG CAPSULE PO SCH (08:58)
[2022-01-16] MEDS: LACTOBACILLUS ACIDOPHILUS CAP (BACID) PO SCH ×2 (08:58→16:02)
[2022-01-16] MEDS: APIXABAN 5 MG TAB (ELIQUIS) PO SCH ×2 (08:58→20:09)
[2022-01-16] MEDS: FERROUS GLUCONATE 324 MG TAB PO SCH ×2 (08:58→20:10)
[2022-01-16] MEDS: ASPIRIN 81 MG CHEW TABLET PO SCH (08:58)
[2022-01-16 09:45] LABS: BASO # 0.1 10^3/uL (0.0-0.2); BASO % 0.6 % (0.0-1.0); EOS # 0.2 10^3/uL (0.0-0.5); EOS % 1.6 % (0.0-3.0); HEMATOCRIT 31.9 % (36.0-47.0); HEMOGLOBIN 10.2 g/dl (12.0-15.5); LYMPH % 16.4 % (24.0-44.0); MEAN CORPUSCULAR HEMOGLOBIN 30.6 pg (27.0-33.0); MEAN CORPUSCULAR VOLUME 95.8 fl (80.0-96.0); MONO % 8.2 % (2.0-8.0); NEUTROPHILS # 8.8 10^3/uL (1.5-8.5); NEUTROPHILS % 72.8 % (36.0-66.0); PLATELET COUNT, AUTOMATED 429 10^3/uL (150-450); RED BLOOD COUNT 3.33 10^6/uL (4.00-5.40); WHITE BLOOD COUNT 12.1 10^3/uL (4.0-10.0)
[2022-01-16 10:43] LABS: CPK CREATINE PHOSPHOKINASE 24 U/L (26-192)
[2022-01-16] MEDS: FLUTICASONE PROP 0.05% NASAL SPRAY 16 GM (FLONASE) NARES SCH ×2 (11:08→20:11)
[2022-01-16] MEDS: SODIUM CHLORIDE NASAL 0.65% SPRAY BTL (OCEAN) SCH ×3 (11:08→20:11)
[2022-01-16] MEDS: SUCRALFATE SUSP 1GM/10ML UD PO SCH ×2 (12:34→20:10)
[2022-01-16 14:00] VITALS: BP 101/62
[2022-01-16] MEDS ORDERED: COMBIVENT RESPIMAT 100-20MCG INHALER 4GM INH SCH (14:00)
[2022-01-16] MEDS: ACETAMINOPHEN 650MG ER TAB (TYLENOL ARTHRITIS) PO SCH ×2 (16:01→20:09)
[2022-01-16] MEDS: guaiFENesin SYRUP 200MG 10ML UDC PO SCH ×2 (16:01→20:10)
[2022-01-16 20:00] VITALS: BP 120/76
[2022-01-16] MEDS: FAMOTIDINE 20 MG TAB PO SCH (20:09)
[2022-01-16] MEDS: ATORVASTATIN 20 MG TAB PO SCH (20:10)
[2022-01-16] MEDS ORDERED: FOSFOMYCIN TROMETHAMINE 3 GM POWDER PACKET (MONUROL) PO ONE (23:00)
[2022-01-17 06:00] VITALS: BP 122/80
[2022-01-17 06:35] LABS: BASO # 0.1 10^3/uL (0.0-0.2); BASO % 0.6 % (0.0-1.0); EOS # 0.2 10^3/uL (0.0-0.5); EOS % 1.4 % (0.0-3.0); HEMATOCRIT 33.3 % (36.0-47.0); HEMOGLOBIN 10.5 g/dl (12.0-15.5); LYMPH # 2.5 10^3/uL (1.5-5.0); LYMPH % 21.6 % (24.0-44.0); MEAN CORPUSCULAR HEMOGLOBIN 30.3 pg (27.0-33.0); MEAN CORPUSCULAR HGB CONC 31.5 g/dl (32.0-36.5); MONO # 0.9 10^3/uL (0.0-0.8); MONO % 7.9 % (2.0-8.0); NEUTROPHILS # 7.9 10^3/uL (1.5-8.5); NEUTROPHILS % 68.1 % (36.0-66.0); PLATELET COUNT, AUTOMATED 450 10^3/uL (150-450); RED BLOOD COUNT 3.47 10^6/uL (4.00-5.40); WHITE BLOOD COUNT 11.6 10^3/uL (4.0-10.0)
[2022-01-17] MEDS: ACETAMINOPHEN 650MG ER TAB (TYLENOL ARTHRITIS) PO SCH ×3 (06:56→20:13)
[2022-01-17 07:08] LABS: BLOOD UREA NITROGEN 11 MG/DL (7-18); CALCIUM LEVEL 8.9 MG/DL (8.8-10.2); CARBON DIOXIDE LEVEL 27 MEQ/L (21-32); CHLORIDE LEVEL 107 MEQ/L (98-107); CREATININE FOR GFR 0.52 MG/DL (0.55-1.30); GLOMERULAR FILTRATION RATE > 60.0 (>39); GLUCOSE, FASTING 92 MG/DL (70-100); POTASSIUM SERUM 4.5 MEQ/L (3.5-5.1); SODIUM LEVEL 141 MEQ/L (136-145)
[2022-01-17] MEDS: APIXABAN 5 MG TAB (ELIQUIS) PO SCH ×2 (07:34→20:13)
[2022-01-17] MEDS: LACTOBACILLUS ACIDOPHILUS CAP (BACID) PO SCH ×2 (07:34→17:06)
[2022-01-17] MEDS: METOPROLOL TART 25 MG TABLET PO SCH ×2 (07:34→20:14)
[2022-01-17] MEDS: FERROUS GLUCONATE 324 MG TAB PO SCH ×2 (07:34→20:14)
[2022-01-17] MEDS: DOCUSATE SODIUM 100MG CAPSULE PO SCH (07:35)
[2022-01-17] MEDS: ASPIRIN 81 MG CHEW TABLET PO SCH (07:35)
[2022-01-17] MEDS: SUCRALFATE SUSP 1GM/10ML UD PO SCH ×2 (07:35→20:14)
[2022-01-17] MEDS: SODIUM CHLORIDE NASAL 0.65% SPRAY BTL (OCEAN) SCH ×3 (07:36→20:03)
[2022-01-17] MEDS: guaiFENesin SYRUP 200MG 10ML UDC PO SCH ×3 (07:36→20:03)
[2022-01-17] MEDS: FLUTICASONE PROP 0.05% NASAL SPRAY 16 GM (FLONASE) NARES SCH ×2 (07:36→20:03)
[2022-01-17 14:00] VITALS: BP 124/72
[2022-01-17 19:46] VITALS: BP 124/86
[2022-01-17] MEDS: FAMOTIDINE 20 MG TAB PO SCH (20:13)
[2022-01-17] MEDS: ATORVASTATIN 20 MG TAB PO SCH (20:13)
[2022-01-17] MEDS: DULoxetine 20 MG CAP (CYMBALTA) PO SCH (20:14)
[2022-01-17] MEDS ORDERED: DULoxetine 20 MG CAP (CYMBALTA) PO SCH (21:00)
[2022-01-18 05:38] VITALS: BP 142/78
[2022-01-18] MEDS: ACETAMINOPHEN 650MG ER TAB (TYLENOL ARTHRITIS) PO SCH ×3 (06:49→21:14)
[2022-01-18 08:00] LABS: BASO # 0.1 10^3/uL (0.0-0.2); BASO % 0.7 % (0.0-1.0); EOS # 0.1 10^3/uL (0.0-0.5); EOS % 1.3 % (0.0-3.0); HEMATOCRIT 32.4 % (36.0-47.0); HEMOGLOBIN 10.4 g/dl (12.0-15.5); LYMPH # 1.8 10^3/uL (1.5-5.0); LYMPH % 21.3 % (24.0-44.0); MEAN CORPUSCULAR HEMOGLOBIN 30.8 pg (27.0-33.0); MEAN CORPUSCULAR HGB CONC 32.1 g/dl (32.0-36.5); MEAN CORPUSCULAR VOLUME 95.9 fl (80.0-96.0); MONO # 0.7 10^3/uL (0.0-0.8); MONO % 8.3 % (2.0-8.0); NEUTROPHILS # 5.6 10^3/uL (1.5-8.5); NEUTROPHILS % 68.2 % (36.0-66.0); PLATELET COUNT, AUTOMATED 452 10^3/uL (150-450); RED BLOOD COUNT 3.38 10^6/uL (4.00-5.40); WHITE BLOOD COUNT 8.3 10^3/uL (4.0-10.0)
[2022-01-18] MEDS: FERROUS GLUCONATE 324 MG TAB PO SCH ×2 (08:13→21:16)
[2022-01-18] MEDS: ASPIRIN 81 MG CHEW TABLET PO SCH (08:13)
[2022-01-18] MEDS: DOCUSATE SODIUM 100MG CAPSULE PO SCH (08:14)
[2022-01-18] MEDS: SUCRALFATE SUSP 1GM/10ML UD PO SCH ×2 (08:14→21:16)
[2022-01-18] MEDS: LACTOBACILLUS ACIDOPHILUS CAP (BACID) PO SCH ×2 (08:14→18:37)
[2022-01-18] MEDS: APIXABAN 5 MG TAB (ELIQUIS) PO SCH ×2 (08:14→21:14)
[2022-01-18] MEDS: SODIUM CHLORIDE NASAL 0.65% SPRAY BTL (OCEAN) SCH ×3 (08:15→21:00)
[2022-01-18] MEDS: guaiFENesin SYRUP 200MG 10ML UDC PO SCH ×3 (08:15→21:00)
[2022-01-18] MEDS: FLUTICASONE PROP 0.05% NASAL SPRAY 16 GM (FLONASE) NARES SCH ×2 (08:15→21:00)
[2022-01-18] MEDS: METOPROLOL TART 25 MG TABLET PO SCH ×2 (08:16→21:14)
[2022-01-18 08:57] LABS: BLOOD UREA NITROGEN 13 MG/DL (7-18); CALCIUM LEVEL 9.3 MG/DL (8.8-10.2); CARBON DIOXIDE LEVEL 26 MEQ/L (21-32); CHLORIDE LEVEL 107 MEQ/L (98-107); CREATININE FOR GFR 0.47 MG/DL (0.55-1.30); GLOMERULAR FILTRATION RATE > 60.0 (>39); GLUCOSE, FASTING 117 MG/DL (70-100); POTASSIUM SERUM 4.2 MEQ/L (3.5-5.1); SODIUM LEVEL 139 MEQ/L (136-145)
[2022-01-18] MEDS: LevoFLOXacin 250 MG TABLET PO SCH (10:45)
[2022-01-18 14:00] VITALS: BP 108/59
[2022-01-18] MEDS: DICLOFENAC EPOLAMINE 1.3 % PATCH TOP SCH ×2 (15:58→21:15)
[2022-01-18 20:00] VITALS: BP 127/55
[2022-01-18] MEDS: FAMOTIDINE 20 MG TAB PO SCH (21:14)
[2022-01-18] MEDS: ATORVASTATIN 20 MG TAB PO SCH (21:14)
[2022-01-18] MEDS: DULoxetine 20 MG CAP (CYMBALTA) PO SCH (21:14)
[2022-01-19] MEDS: LevoFLOXacin 250 MG TABLET PO SCH (05:19)
[2022-01-19 05:22] VITALS: BP 133/74
[2022-01-19 08:44] LABS: BASO % 0.6 % (0.0-1.0); EOS # 0.1 10^3/uL (0.0-0.5); EOS % 1.3 % (0.0-3.0); HEMATOCRIT 30.6 % (36.0-47.0); HEMOGLOBIN 9.8 g/dl (12.0-15.5); LYMPH # 1.6 10^3/uL (1.5-5.0); MEAN CORPUSCULAR HEMOGLOBIN 30.8 pg (27.0-33.0); MEAN CORPUSCULAR VOLUME 96.2 fl (80.0-96.0); MONO # 0.6 10^3/uL (0.0-0.8); MONO % 8.5 % (2.0-8.0); NEUTROPHILS # 4.7 10^3/uL (1.5-8.5); NEUTROPHILS % 66.3 % (36.0-66.0); PLATELET COUNT, AUTOMATED 436 10^3/uL (150-450); RED BLOOD COUNT 3.18 10^6/uL (4.00-5.40); WHITE BLOOD COUNT 7.1 10^3/uL (4.0-10.0)
[2022-01-19] MEDS: FLUTICASONE PROP 0.05% NASAL SPRAY 16 GM (FLONASE) NARES SCH ×2 (09:00→21:00)
[2022-01-19] MEDS: guaiFENesin SYRUP 200MG 10ML UDC PO SCH ×3 (09:00→21:00)
[2022-01-19] MEDS: SUCRALFATE SUSP 1GM/10ML UD PO SCH ×2 (09:00→21:22)
[2022-01-19] MEDS: SODIUM CHLORIDE NASAL 0.65% SPRAY BTL (OCEAN) SCH ×3 (09:00→21:00)
[2022-01-19] MEDS: DOCUSATE SODIUM 100MG CAPSULE PO SCH (09:00)
[2022-01-19 09:12] LABS: BLOOD UREA NITROGEN 14 MG/DL (7-18); CALCIUM LEVEL 9.1 MG/DL (8.8-10.2); CARBON DIOXIDE LEVEL 26 MEQ/L (21-32); CHLORIDE LEVEL 106 MEQ/L (98-107); CREATININE FOR GFR 0.47 MG/DL (0.55-1.30); GLOMERULAR FILTRATION RATE > 60.0 (>39); GLUCOSE, FASTING 101 MG/DL (70-100); POTASSIUM SERUM 4.3 MEQ/L (3.5-5.1); SODIUM LEVEL 138 MEQ/L (136-145)
[2022-01-19] MEDS: ACETAMINOPHEN 650MG ER TAB (TYLENOL ARTHRITIS) PO SCH ×3 (09:26→21:23)
[2022-01-19] MEDS: FERROUS GLUCONATE 324 MG TAB PO SCH ×2 (09:26→21:23)
[2022-01-19] MEDS: DICLOFENAC EPOLAMINE 1.3 % PATCH TOP SCH ×2 (09:26→21:23)
[2022-01-19] MEDS: METOPROLOL TART 25 MG TABLET PO SCH ×2 (09:26→21:23)
[2022-01-19] MEDS: APIXABAN 5 MG TAB (ELIQUIS) PO SCH ×2 (09:27→21:23)
[2022-01-19] MEDS: ASPIRIN 81 MG CHEW TABLET PO SCH (09:27)
[2022-01-19] MEDS: LACTOBACILLUS ACIDOPHILUS CAP (BACID) PO SCH ×2 (09:27→17:45)
[2022-01-19 14:00] VITALS: BP 127/76
[2022-01-19 20:00] VITALS: BP 122/72
[2022-01-19] MEDS: ATORVASTATIN 20 MG TAB PO SCH (21:23)
[2022-01-19] MEDS: DULoxetine 20 MG CAP (CYMBALTA) PO SCH (21:23)
[2022-01-19] MEDS: FAMOTIDINE 20 MG TAB PO SCH (21:24)
[2022-01-20] MEDS: LevoFLOXacin 250 MG TABLET PO SCH (05:40)
[2022-01-20 06:00] VITALS: BP 132/83
[2022-01-20] MEDS: SUCRALFATE SUSP 1GM/10ML UD PO SCH ×3 (08:19→09:00)
[2022-01-20] MEDS: ASPIRIN 81 MG CHEW TABLET PO SCH (08:19)
[2022-01-20] MEDS: DOCUSATE SODIUM 100MG CAPSULE PO SCH (08:19)
[2022-01-20] MEDS: LACTOBACILLUS ACIDOPHILUS CAP (BACID) PO SCH ×2 (08:19→16:48)
[2022-01-20] MEDS: FERROUS GLUCONATE 324 MG TAB PO SCH ×2 (08:20→20:53)
[2022-01-20] MEDS: guaiFENesin SYRUP 200MG 10ML UDC PO SCH ×3 (08:20→20:52)
[2022-01-20] MEDS: ACETAMINOPHEN 650MG ER TAB (TYLENOL ARTHRITIS) PO SCH ×3 (08:20→20:54)
[2022-01-20] MEDS: APIXABAN 5 MG TAB (ELIQUIS) PO SCH ×2 (08:20→20:54)
[2022-01-20] MEDS: METOPROLOL TART 25 MG TABLET PO SCH ×2 (08:21→20:54)
[2022-01-20] MEDS: SODIUM CHLORIDE NASAL 0.65% SPRAY BTL (OCEAN) SCH ×3 (08:21→20:53)
[2022-01-20] MEDS: FLUTICASONE PROP 0.05% NASAL SPRAY 16 GM (FLONASE) NARES SCH ×2 (08:21→08:29)
[2022-01-20] MEDS: DICLOFENAC EPOLAMINE 1.3 % PATCH TOP SCH ×2 (08:22→20:53)
[2022-01-20 13:48] LABS: BASO # 0.1 10^3/uL (0.0-0.2); BASO % 0.6 % (0.0-1.0); EOS # 0.1 10^3/uL (0.0-0.5); EOS % 0.6 % (0.0-3.0); HEMATOCRIT 32.6 % (36.0-47.0); HEMOGLOBIN 10.3 g/dl (12.0-15.5); LYMPH # 1.9 10^3/uL (1.5-5.0); LYMPH % 22.9 % (24.0-44.0); MEAN CORPUSCULAR HEMOGLOBIN 30.3 pg (27.0-33.0); MEAN CORPUSCULAR HGB CONC 31.6 g/dl (32.0-36.5); MEAN CORPUSCULAR VOLUME 95.9 fl (80.0-96.0); MONO # 0.8 10^3/uL (0.0-0.8); MONO % 9.3 % (2.0-8.0); NEUTROPHILS # 5.5 10^3/uL (1.5-8.5); NEUTROPHILS % 66.2 % (36.0-66.0); PLATELET COUNT, AUTOMATED 465 10^3/uL (150-450); WHITE BLOOD COUNT 8.3 10^3/uL (4.0-10.0)
[2022-01-20 14:00] VITALS: BP 104/63
[2022-01-20 14:24] LABS: BLOOD UREA NITROGEN 20 MG/DL (7-18); CALCIUM LEVEL 9.1 MG/DL (8.8-10.2); CARBON DIOXIDE LEVEL 25 MEQ/L (21-32); CHLORIDE LEVEL 107 MEQ/L (98-107); CREATININE FOR GFR 0.65 MG/DL (0.55-1.30); GLOMERULAR FILTRATION RATE > 60.0 (>39); GLUCOSE, FASTING 100 MG/DL (70-100); MAGNESIUM LEVEL 2.2 MG/DL (1.8-2.4); POTASSIUM SERUM 4.1 MEQ/L (3.5-5.1); SODIUM LEVEL 139 MEQ/L (136-145)
[2022-01-20 15:09] LABS: TOTAL 25(OH) VITAMIN D 75.8 NG/ML (30.0-100.0)
[2022-01-20 19:25] VITALS: BP 112/62
[2022-01-20] MEDS: FAMOTIDINE 20 MG TAB PO SCH (20:53)
[2022-01-20] MEDS: DULoxetine 20 MG CAP (CYMBALTA) PO SCH (20:54)
[2022-01-20] MEDS: ATORVASTATIN 20 MG TAB PO SCH (20:54)
[2022-01-20] MEDS: MAGNESIUM GLUCONATE 500 MG TAB PO SCH (20:54)
[2022-01-21 05:25] VITALS: BP 134/99
[2022-01-21] MEDS: APIXABAN 5 MG TAB (ELIQUIS) PO SCH ×2 (08:18→20:05)
[2022-01-21] MEDS: DICLOFENAC EPOLAMINE 1.3 % PATCH TOP SCH ×2 (08:18→20:06)
[2022-01-21] MEDS: SUCRALFATE SUSP 1GM/10ML UD PO SCH (08:19)
[2022-01-21] MEDS: DOCUSATE SODIUM 100MG CAPSULE PO SCH (08:19)
[2022-01-21] MEDS: ASPIRIN 81 MG CHEW TABLET PO SCH (08:19)
[2022-01-21] MEDS: LACTOBACILLUS ACIDOPHILUS CAP (BACID) PO SCH ×2 (08:19→17:09)
[2022-01-21] MEDS: ACETAMINOPHEN 650MG ER TAB (TYLENOL ARTHRITIS) PO SCH ×3 (08:19→20:05)
[2022-01-21] MEDS: METOPROLOL TART 25 MG TABLET PO SCH ×2 (08:20→20:06)
[2022-01-21] MEDS: FLUTICASONE PROP 0.05% NASAL SPRAY 16 GM (FLONASE) NARES SCH ×2 (08:20→20:07)
[2022-01-21] MEDS: FERROUS GLUCONATE 324 MG TAB PO SCH ×2 (08:20→20:05)
[2022-01-21] MEDS: SODIUM CHLORIDE NASAL 0.65% SPRAY BTL (OCEAN) SCH ×3 (08:20→20:07)
[2022-01-21] MEDS: guaiFENesin SYRUP 200MG 10ML UDC PO SCH ×3 (08:20→20:07)
[2022-01-21 14:00] VITALS: BP 131/71
[2022-01-21 20:00] VITALS: BP 116/63
[2022-01-21] MEDS: DULoxetine 20 MG CAP (CYMBALTA) PO SCH (20:05)
[2022-01-21] MEDS: MAGNESIUM GLUCONATE 500 MG TAB PO SCH (20:05)
[2022-01-21] MEDS: FAMOTIDINE 20 MG TAB PO SCH (20:05)
[2022-01-21] MEDS: ATORVASTATIN 20 MG TAB PO SCH (20:05)
[2022-01-22 06:00] VITALS: BP 120/76
[2022-01-22] MEDS: SUCRALFATE SUSP 1GM/10ML UD PO SCH (07:04)
[2022-01-22] MEDS: guaiFENesin SYRUP 200MG 10ML UDC PO SCH ×4 (07:04→21:10)
[2022-01-22] MEDS: DOCUSATE SODIUM 100MG CAPSULE PO SCH (07:29)
[2022-01-22] MEDS: DICLOFENAC EPOLAMINE 1.3 % PATCH TOP SCH ×2 (07:29→21:10)
[2022-01-22] MEDS: ASPIRIN 81 MG CHEW TABLET PO SCH (07:29)
[2022-01-22] MEDS: METOPROLOL TART 25 MG TABLET PO SCH ×2 (07:29→21:11)
[2022-01-22] MEDS: APIXABAN 5 MG TAB (ELIQUIS) PO SCH ×2 (07:29→21:11)
[2022-01-22] MEDS: LACTOBACILLUS ACIDOPHILUS CAP (BACID) PO SCH ×2 (07:29→16:35)
[2022-01-22] MEDS: ACETAMINOPHEN 650MG ER TAB (TYLENOL ARTHRITIS) PO SCH ×3 (07:29→21:10)
[2022-01-22] MEDS: FERROUS GLUCONATE 324 MG TAB PO SCH ×2 (07:29→21:11)
[2022-01-22] MEDS: FLUTICASONE PROP 0.05% NASAL SPRAY 16 GM (FLONASE) NARES SCH ×3 (07:30→21:11)
[2022-01-22] MEDS: SODIUM CHLORIDE NASAL 0.65% SPRAY BTL (OCEAN) SCH ×4 (07:30→21:12)
[2022-01-22 14:00] VITALS: BP 104/61
[2022-01-22 20:00] VITALS: BP 117/61
[2022-01-22] MEDS: MAGNESIUM GLUCONATE 500 MG TAB PO SCH (21:10)
[2022-01-22] MEDS: FAMOTIDINE 20 MG TAB PO SCH (21:10)
[2022-01-22] MEDS: DULoxetine 20 MG CAP (CYMBALTA) PO SCH (21:11)
[2022-01-22] MEDS: ATORVASTATIN 20 MG TAB PO SCH (21:11)
[2022-01-23 06:00] VITALS: BP 135/80
[2022-01-23] MEDS: SODIUM CHLORIDE NASAL 0.65% SPRAY BTL (OCEAN) SCH (09:00)
[2022-01-23] MEDS: guaiFENesin SYRUP 200MG 10ML UDC PO SCH (09:00)
[2022-01-23] MEDS: FLUTICASONE PROP 0.05% NASAL SPRAY 16 GM (FLONASE) NARES SCH (09:00)
[2022-01-23] MEDS: SUCRALFATE SUSP 1GM/10ML UD PO SCH (09:00)
[2022-01-23] MEDS: APIXABAN 5 MG TAB (ELIQUIS) PO SCH (09:20)
[2022-01-23] MEDS: FERROUS GLUCONATE 324 MG TAB PO SCH (09:20)
[2022-01-23] MEDS: ACETAMINOPHEN 650MG ER TAB (TYLENOL ARTHRITIS) PO SCH (09:20)
[2022-01-23 09:21] VITALS: BP 132/69
[2022-01-23] MEDS: DOCUSATE SODIUM 100MG CAPSULE PO SCH (09:21)
[2022-01-23] MEDS: LACTOBACILLUS ACIDOPHILUS CAP (BACID) PO SCH (09:21)
[2022-01-23] MEDS: DICLOFENAC EPOLAMINE 1.3 % PATCH TOP SCH (09:21)
[2022-01-23] MEDS: ASPIRIN 81 MG CHEW TABLET PO SCH (09:21)
[2022-01-23] MEDS: METOPROLOL TART 25 MG TABLET PO SCH (09:21)
[2022-01-23] MEDS ORDERED: RISATAB3 PO (11:23)
[2022-01-23] MEDS ORDERED: Sodium Chloride Nasal Spray (11:23)
[2022-01-23] MEDS ORDERED: MAGN50TA PO (11:23)
[2022-01-23] MEDS ORDERED: FAMO20TA PO (11:23)
[2022-01-23] MEDS ORDERED: FERR32TA PO (11:23)
[2022-01-23] MEDS ORDERED: DICL1PAT6 TOP (11:23)
[2022-01-23] MEDS ORDERED: CYMB1CAP4 PO (11:23)
[2022-01-23] MEDS ORDERED: ATOR1TAB21 PO (11:23)
[2022-01-23] MEDS ORDERED: ASPI81CH8 PO (11:23)
[2022-01-23] MEDS ORDERED: COLA100C5 PO (11:23)
[2022-01-23] MEDS ORDERED: METO1TAB87 PO (11:23)
[2022-01-23] MEDS ORDERED: FLUTISP NARES (11:23)
[2022-01-24] MEDS ORDERED: SUCR1TA PO (13:52)
[2022-01-24] MEDS ORDERED: GUAI100L6 PO (13:53)
[2022-01-24] MEDS ORDERED: LEVO1TAB38 PO (13:54)
== END 2022-01-23 13:20 | DRG 57 ==
LOC: M PM&R 15:13
PROVIDERS: ADMIT Physical Medicine & Rehabilitation; ATTEND Physical Medicine & Rehabilitation
DX: I69.351 Hemiplegia and hemiparesis following cerebral infarction affecting right dominant side (principal); C18.9 Malignant neoplasm of colon, unspecified; N39.0 Urinary tract infection, site not specified; G83.4 Cauda equina syndrome; I69.398 Other sequelae of cerebral infarction; I69.391 Dysphagia following cerebral infarction; R13.10 Dysphagia, unspecified; E78.5 Hyperlipidemia, unspecified; M19.90 Unspecified osteoarthritis, unspecified site; M81.0 Age-related osteoporosis without current pathological fracture; E55.9 Vitamin D deficiency, unspecified; I10 Essential (primary) hypertension; R53.1 Weakness; B96.1 Klebsiella pneumoniae [K. pneumoniae] as the cause of diseases classified elsewhere; R20.8 Other disturbances of skin sensation; I48.0 Paroxysmal atrial fibrillation; H91.92 Unspecified hearing loss, left ear; R39.15 Urgency of urination; R35.0 Frequency of micturition; M51.16 Intervertebral disc disorders with radiculopathy, lumbar region; K59.00 Constipation, unspecified; R10.13 Epigastric pain; R74.01 Elevation of levels of liver transaminase levels; M79.661 Pain in right lower leg; R11.0 Nausea; R19.7 Diarrhea, unspecified; I65.21 Occlusion and stenosis of right carotid artery; E87.6 Hypokalemia; R20.0 Anesthesia of skin; M79.18 Myalgia, other site; R00.2 Palpitations; Z90.49 Acquired absence of other specified parts of digestive tract; Z98.41 Cataract extraction status, right eye; Z98.42 Cataract extraction status, left eye; Z79.01 Long term (current) use of anticoagulants; Z79.899 Other long term (current) drug therapy; Z87.891 Personal history of nicotine dependence; Z74.1 Need for assistance with personal care; Z74.09 Other reduced mobility

== ENCOUNTER → 2022-01-24 | Outpatient (REF) | payer BC, MEDICARE ==
[~2022-01-24] MED LIST changes: +ASPI81CH8 PO; +ATOR1TAB21 PO; +COLA100C5 PO; +CYMB1CAP4 PO; +DICL1PAT6 TOP; +FAMO20TA PO; +FLUTISP NARES; +GUAI100L6 PO; +LEVO1TAB38 PO; +MAGN50TA PO; +METO1TAB87 PO; +RISATAB3 PO; +SUCR1TA PO; +Sodium Chloride Nasal Spray
[2022-01-24 05:38] LABS: APPEARANCE, URINE MANUAL CLEAR (CLEAR); COLOR, URINE MANUAL YELLOW (YELLOW); SPECIFIC GRAVITY,URINE MANUAL 1.025 (1.002-1.035)
[2022-01-24 05:41] LABS: BILIRUBIN, URINE MANUAL NEGATIVE (NEGATIVE); BLOOD URINE MANUAL NEGATIVE (NEGATIVE); GLUCOSE, URINE (UA) MANUAL NEGATIVE (NEGATIVE); KETONE, URINE MANUAL NEGATIVE (NEGATIVE); LEUKOCYTE ESTERASE, URINE MAN NEGATIVE (NEGATIVE); NITRITE, URINE MANUAL NEGATIVE (NEGATIVE); PROTEIN, URINE MANUAL NEGATIVE (NEGATIVE); UROBILINOGEN, URINE MANUAL NORMAL (NORMAL)
[2022-01-24 10:22] LABS: HEMATOCRIT 30.3 % (36.0-47.0); HEMOGLOBIN 9.6 g/dl (12.0-15.5); MEAN CORPUSCULAR HEMOGLOBIN 30.7 pg (27.0-33.0); MEAN CORPUSCULAR HGB CONC 31.7 g/dl (32.0-36.5); MEAN CORPUSCULAR VOLUME 96.8 fl (80.0-96.0); PLATELET COUNT, AUTOMATED 405 10^3/uL (150-450); RED BLOOD COUNT 3.13 10^6/uL (4.00-5.40); WHITE BLOOD COUNT 7.8 10^3/uL (4.0-10.0)
[2022-01-24 10:49] LABS: ALT/SGPT 19 U/L (12-78); BILIRUBIN,TOTAL 0.3 MG/DL (0.2-1.0); BLOOD UREA NITROGEN 23 MG/DL (7-18); CARBON DIOXIDE LEVEL 26 MEQ/L (21-32); CHLORIDE LEVEL 109 MEQ/L (98-107); CREATININE FOR GFR 0.46 MG/DL (0.55-1.30); GLOMERULAR FILTRATION RATE > 60.0 (>39); GLUCOSE, FASTING 110 MG/DL (70-100); MAGNESIUM LEVEL 1.9 MG/DL (1.8-2.4); POTASSIUM SERUM 4.3 MEQ/L (3.5-5.1); SODIUM LEVEL 141 MEQ/L (136-145); TOTAL PROTEIN 6.2 GM/DL (6.4-8.2)
== END ==
LOC: SKLAB4 13:56
PROVIDERS: ATTEND Nurse Practitioner Family
DX: I63.9 Cerebral infarction, unspecified (principal)

== ENCOUNTER → 2022-02-13 | Outpatient (REF) ==
[2022-02-07 08:27] LABS: BASO # 0.1 10^3/uL (0.0-0.2); BASO % 0.8 % (0.0-1.0); EOS # 0.1 10^3/uL (0.0-0.5); EOS % 2.1 % (0.0-3.0); HEMATOCRIT 34.9 % (36.0-47.0); HEMOGLOBIN 10.7 g/dl (12.0-15.5); LYMPH # 1.6 10^3/uL (1.5-5.0); LYMPH % 26.2 % (24.0-44.0); MEAN CORPUSCULAR HEMOGLOBIN 30.5 pg (27.0-33.0); MEAN CORPUSCULAR HGB CONC 30.7 g/dl (32.0-36.5); MEAN CORPUSCULAR VOLUME 99.4 fl (80.0-96.0); MONO # 0.6 10^3/uL (0.0-0.8); MONO % 9.8 % (2.0-8.0); NEUTROPHILS # 3.7 10^3/uL (1.5-8.5); NEUTROPHILS % 60.9 % (36.0-66.0); PLATELET COUNT, AUTOMATED 298 10^3/uL (150-450); RED BLOOD COUNT 3.51 10^6/uL (4.00-5.40); WHITE BLOOD COUNT 6.1 10^3/uL (4.0-10.0)
[2022-02-07 09:02] LABS: ALBUMIN 3.3 GM/DL (3.2-5.2); ALT/SGPT 27 U/L (12-78); BILIRUBIN,TOTAL 0.5 MG/DL (0.2-1.0); BLOOD UREA NITROGEN 15 MG/DL (7-18); CALCIUM LEVEL 9.1 MG/DL (8.8-10.2); CARBON DIOXIDE LEVEL 26 MEQ/L (21-32); CHLORIDE LEVEL 110 MEQ/L (98-107); CREATININE FOR GFR 0.55 MG/DL (0.55-1.30); GLOMERULAR FILTRATION RATE > 60.0 (>39); GLUCOSE, FASTING 87 MG/DL (70-100); MAGNESIUM LEVEL 2.1 MG/DL (1.8-2.4); POTASSIUM SERUM 4.4 MEQ/L (3.5-5.1); SODIUM LEVEL 143 MEQ/L (136-145); TOTAL PROTEIN 6.5 GM/DL (6.4-8.2)
[2022-02-07 10:00] LABS: APPEARANCE, URINE MANUAL CLEAR (CLEAR); COLOR, URINE MANUAL YELLOW (YELLOW)
[2022-02-07 10:01] LABS: BILIRUBIN, URINE MANUAL NEGATIVE (NEGATIVE); BLOOD URINE MANUAL NEGATIVE (NEGATIVE); GLUCOSE, URINE (UA) MANUAL NEGATIVE (NEGATIVE); KETONE, URINE MANUAL NEGATIVE (NEGATIVE); LEUKOCYTE ESTERASE, URINE MAN TRACE (NEGATIVE); NITRITE, URINE MANUAL NEGATIVE (NEGATIVE); PROTEIN, URINE MANUAL NEGATIVE (NEGATIVE); UROBILINOGEN, URINE MANUAL NORMAL (NORMAL)
[2022-02-07 10:19] LABS: BACTERIA, URINE MOD AMOUNT; HYALINE CAST, URINE NONE SEEN /lpf (0-1); MUCUS, URINE SMALL AMOUNT (NEGATIVE); SQUAMOUS EPITHELIAL CELL URINE MOD AMOUNT /hpf (SMALL AMT)
== END ==
LOC: SKLAB4 16:12
PROVIDERS: ATTEND Nurse Practitioner Family
DX: I63.9 Cerebral infarction, unspecified (principal); C18.9 Malignant neoplasm of colon, unspecified

== ENCOUNTER → 2022-05-10 | Outpatient (REF) | payer MEDICARE, BC | LOC: M LAB REF 16:24 | PROVIDERS: ATTEND Family Medicine | DX: C18.2 Malignant neoplasm of ascending colon (principal) ==

== ENCOUNTER → 2022-09-22 | Outpatient (REF) | payer MEDICARE, BC ==
[~2022-09-22] MED LIST changes: +FLUT50SP17 NARES; -FLUTISP NARES
== END ==
LOC: M LAB REF 16:32
PROVIDERS: ATTEND Family Medicine
DX: C18.2 Malignant neoplasm of ascending colon (principal)

== ENCOUNTER → 2022-10-27 | Outpatient (CLI) | payer MEDICARE, BC ==
[~2022-10-27] MED LIST changes: +ASPI81TA24 PO; +ASPI81TA26 PO; +DULO1CAP4 PO; +FAMO1TAB11 PO; +FERR324T21 PO; +FURO20TA2 PO; +MAGN500T12 PO; +METO25TA4 PO
== END ==
LOC: M WUC 15:41
PROVIDERS: ATTEND Nurse Practitioner Family
DX: R06.02 Shortness of breath (principal)

== ENCOUNTER 2022-10-29 02:09 | Inpatient (IN) | payer MEDICARE, BC ==
[~2022-10-29] VITALS: Ht 170.2 cm; Wt 68.0 kg
[2022-10-29] VITALS (9 sets, daily range): BP systolic 101–176; BP diastolic 59–96; TEMP 97–98.9; O2SAT 90–99
[~2022-10-29 02:09] MED LIST changes: -ASPI81TA24 PO; -ASPI81TA26 PO; -DULO1CAP4 PO; -FAMO1TAB11 PO; -FERR324T21 PO; -FURO20TA2 PO; -MAGN500T12 PO; -METO25TA4 PO
[2022-10-29 02:51] LABS: BASO # 0.1 10^3/uL (0.0-0.2); BASO % 0.2 % (0.0-1.0); HEMATOCRIT 43.6 % (36.0-47.0); HEMOGLOBIN 14.2 g/dl (12.0-15.5); LYMPH # 0.8 10^3/uL (1.5-5.0); LYMPH % 3.6 % (24.0-44.0); MEAN CORPUSCULAR HEMOGLOBIN 32.6 pg (27.0-33.0); MEAN CORPUSCULAR HGB CONC 32.6 g/dl (32.0-36.5); MONO # 1.3 10^3/uL (0.0-0.8); MONO % 6.3 % (2.0-8.0); NEUTROPHILS # 18.7 10^3/uL (1.5-8.5); NEUTROPHILS % 89.3 % (36.0-66.0); PLATELET COUNT, AUTOMATED 258 10^3/uL (150-450); RED BLOOD COUNT 4.36 10^6/uL (4.00-5.40); WHITE BLOOD COUNT 20.9 10^3/uL (4.0-10.0)
[2022-10-29 03:10] LABS: BLOOD UREA NITROGEN 11 MG/DL (9-23); CALCIUM LEVEL 9.1 MG/DL (8.3-10.6); CARBON DIOXIDE LEVEL 27 MMOL/L (20-31); CHLORIDE LEVEL 102 MMOL/L (98-107); CREATININE FOR GFR 0.53 MG/DL (0.55-1.30); GLOMERULAR FILTRATION RATE > 60.0 (>39); GLUCOSE, FASTING 119 MG/DL (74-106); POTASSIUM SERUM 3.3 MMOL/L (3.5-5.1); SODIUM LEVEL 142 MMOL/L (136-145)
[2022-10-29 03:22] LABS: RSV AMPLIFICATION NEGATIVE (NEGATIVE)
[2022-10-29 04:03] LABS: APPEARANCE, URINE HAZY (CLEAR); BACTERIA, URINE AUTO 1+ (NEGATIVE); BILIRUBIN, URINE AUTO NEGATIVE (NEGATIVE); BLOOD, URINE BLOOD 1+ (NEGATIVE); COLOR, URINE YELLOW (YELLOW); GLUCOSE, URINE (UA) AUTO NEGATIVE (NEGATIVE); KETONE, URINE AUTO TRACE mg/dL (NEGATIVE); LEUKOCYTE ESTERASE, URINE AUTO NEGATIVE (NEGATIVE); MUCUS, URINE SMALL (NEGATIVE); NITRITE, URINE AUTO NEGATIVE (NEGATIVE); PROTEIN, URINE AUTO 1+ mg/dL (NEGATIVE); RBC, URINE AUTO 3 /HPF (0-3); SPECIFIC GRAVITY URINE AUTO 1.013 (1.002-1.035); SQUAMOUS EPITHELIAL CELL UR AU 5 /HPF (0-6); WBC, URINE AUTO 0 /HPF (0-3)
[2022-10-29] MEDS: METOPROLOL 5 MG/5 ML VIAL IV SCH ×3 (04:43→06:30)
[2022-10-29] MEDS ORDERED: NS 1,000 ML IV ONE (04:50)
[2022-10-29] MEDS ORDERED: ONDANSETRON 4MG 2ML VIAL IV ONE (04:50)
[2022-10-29] MEDS ORDERED: MORPHINE 4 MG/ML 1ML VIAL IV PRN (04:50)
[2022-10-29] MEDS ORDERED: METOPROLOL TART 25 MG TABLET PO ONE (05:00)
[2022-10-29] MEDS ORDERED: ASPI81TA24 PO (05:59)
[2022-10-29] MEDS ORDERED: ELIQ5TAB PO (05:59)
[2022-10-29] MEDS ORDERED: ASPI81TA26 PO (05:59)
[2022-10-29] MEDS ORDERED: ACET1TAB55 PO (05:59)
[2022-10-29] MEDS ORDERED: FAMO1TAB11 PO (06:03)
[2022-10-29] MEDS ORDERED: MAGN500T12 PO (06:03)
[2022-10-29] MEDS ORDERED: DULO1CAP4 PO (06:03)
[2022-10-29] MEDS ORDERED: FURO20TA2 PO (06:03)
[2022-10-29] MEDS ORDERED: METO25TA4 PO (06:05)
[2022-10-29] MEDS ORDERED: FERR324T21 PO (06:05)
[2022-10-29] MEDS ORDERED: HOME MED LIST COMPLETE! XX SCH (06:05)
[2022-10-29] MEDS ORDERED: ATOR1TAB21 PO (06:05)
[2022-10-29 06:32] LABS: CK-MB VALUE MASS 10.2 NG/ML (<3.6); LIPASE 22 U/L (12-53)
[2022-10-29 06:33] LABS: CPK CREATINE PHOSPHOKINASE 480 U/L (34-145); MB/CK RELATIVE INDEX 2.12 (< OR =4)
[2022-10-29] MEDS ORDERED: MORPHINE 2 MG/ML 1ML VIAL IV PRN (06:35)
[2022-10-29 06:47] LABS: ALBUMIN 3.7 G/DL (3.2-5.2); ALKALINE PHOSPHATASE 141 U/L (46-116); ALT/SGPT 23 U/L (7.0-40); AST/SGOT 32 U/L (<34); BILIRUBIN,DIRECT 0.7 MG/DL (<0.4); BILIRUBIN,TOTAL 1.7 MG/DL (0.3-1.2); MAGNESIUM LEVEL 1.7 MG/DL (1.8-2.4); TOTAL PROTEIN 6.8 G/DL (5.7-8.2)
[2022-10-29] MEDS ORDERED: POTASSIUM CHLORIDE 10MEQ SR TABLET PO ONE (07:00)
[2022-10-29 07:41] LABS: PROCALCITONIN 0.05 ng/ml
[2022-10-29] MEDS: FERROUS GLUCONATE 324 MG TAB PO SCH ×2 (09:16→21:00)
[2022-10-29] MEDS: FUROSEMIDE 20 MG TAB PO SCH (09:16)
[2022-10-29] MEDS ORDERED: TRANEXAMIC ACID 100 MG/ML 10ML VIAL As Ordered ONE (13:45)
[2022-10-29] MEDS ORDERED: ceFAZolin 1GM VIAL As Ordered ONE (13:45)
[2022-10-29] MEDS ORDERED: KETOROLAC 60MG 2ML VIAL As Ordered ONE (13:57)
[2022-10-29] MEDS ORDERED: ONDANSETRON 4MG 2ML VIAL As Ordered ONE (13:57)
[2022-10-29] MEDS ORDERED: fentaNYL 100 MCG/2 ML INJECTION As Ordered ONE (13:57)
[2022-10-29] MEDS ORDERED: propofoL 200 MG/20 ML VIAL As Ordered ONE (13:57)
[2022-10-29] MEDS ORDERED: ACETAMINOPHEN 1000MG 100ML IV BAG As Ordered ONE (13:57)
[2022-10-29] MEDS ORDERED: LIDOCAINE 2% 100MG/5ML SDV (FOR ANES.) As Ordered ONE (13:57)
[2022-10-29] MEDS ORDERED: VANCOMYCIN 1000MG/20ML VIAL As Ordered ONE (17:32)
[2022-10-29] MEDS ORDERED: ONDANSETRON 4MG 2ML VIAL IV PRN (18:15)
[2022-10-29] MEDS ORDERED: METOCLOPRAMIDE INJ 10MG/2ML VIAL IV PRN (18:15)
[2022-10-29] MEDS ORDERED: MEPERIDINE 25 MG/ML 1ML VIAL IV PRN (18:15)
[2022-10-29] MEDS ORDERED: PERCOCET 5MG/325MG TAB PO PRN (18:15)
[2022-10-29] MEDS ORDERED: LR 1,000 ML IV SCH ×2 (18:15→19:40)
[2022-10-29] MEDS ORDERED: fentaNYL 100 MCG/2 ML INJECTION IV PRN (18:15)
[2022-10-29] MEDS: ASPIRIN 81MG ENTERIC TABLET PO SCH (21:00)
[2022-10-29] MEDS: FAMOTIDINE 20 MG TAB PO SCH (21:00)
[2022-10-29] MEDS ORDERED: METOPROLOL TART 25 MG TABLET PO SCH (21:00)
[2022-10-29] MEDS: ATORVASTATIN 20 MG TAB PO SCH (21:00)
[2022-10-29] MEDS: DULoxetine 20MG CAP (CYMBALTA) PO SCH (21:00)
[2022-10-30] MEDS: METOPROLOL 5 MG/5 ML VIAL IV SCH ×2 (00:09→06:46)
[2022-10-30 03:48] VITALS: BP 114/64; TEMP 97.2; O2SAT 97
[2022-10-30 05:24] LABS: HEMATOCRIT 32.6 % (36.0-47.0); MEAN CORPUSCULAR HEMOGLOBIN 32.2 pg (27.0-33.0); MEAN CORPUSCULAR HGB CONC 31.9 g/dl (32.0-36.5); MEAN CORPUSCULAR VOLUME 100.9 fl (80.0-96.0); PLATELET COUNT, AUTOMATED 202 10^3/uL (150-450); RED BLOOD COUNT 3.23 10^6/uL (4.00-5.40)
[2022-10-30 05:30] LABS: HEMOGLOBIN 10.4 g/dl (12.0-15.5)
[2022-10-30 05:42] LABS: BLOOD UREA NITROGEN 15 MG/DL (9-23); CALCIUM LEVEL 8.3 MG/DL (8.3-10.6); CARBON DIOXIDE LEVEL 28 MMOL/L (20-31); CHLORIDE LEVEL 104 MMOL/L (98-107); GLOMERULAR FILTRATION RATE > 60.0 (>39); GLUCOSE, FASTING 109 MG/DL (74-106); POTASSIUM SERUM 4.8 MMOL/L (3.5-5.1); SODIUM LEVEL 142 MMOL/L (136-145)
[2022-10-30 07:21] VITALS: BP 128/68; TEMP 97; O2SAT 92
[2022-10-30] MEDS ORDERED: MAGNESIUM OXIDE 400MG TAB (MAG-OX) PO SCH (09:00)
[2022-10-30] MEDS: FERROUS GLUCONATE 324 MG TAB PO SCH ×2 (10:05→21:07)
[2022-10-30] MEDS: FUROSEMIDE 20 MG TAB PO SCH (10:05)
[2022-10-30] MEDS: METOPROLOL TART 25 MG TABLET PO SCH ×2 (10:07→21:09)
[2022-10-30 10:44] LABS: MAGNESIUM LEVEL 1.7 MG/DL (1.8-2.4)
[2022-10-30 12:02] VITALS: BP 121/73; TEMP 97.8; O2SAT 94
[2022-10-30] MEDS: MAG SULF 1GM/100ML (MAG RUN) 1 GM in IV 1 EA IV SCH ×2 (12:34→13:48)
[2022-10-30] MEDS: ACETAMINOPHEN TAB 650MG DOSE (2X325MG) PO PRN ×3 (12:35→21:11)
[2022-10-30 16:04] VITALS: BP 106/61; TEMP 97.6; O2SAT 95
[2022-10-30 19:47] VITALS: BP 123/73; TEMP 97.6; O2SAT 94
[2022-10-30] MEDS: ASPIRIN 81MG ENTERIC TABLET PO SCH (21:07)
[2022-10-30] MEDS: ATORVASTATIN 20 MG TAB PO SCH (21:08)
[2022-10-30] MEDS: APIXABAN 5 MG TAB (ELIQUIS) PO SCH (21:09)
[2022-10-30] MEDS: FAMOTIDINE 20 MG TAB PO SCH (21:09)
[2022-10-30] MEDS: DULoxetine 20MG CAP (CYMBALTA) PO SCH (21:09)
[2022-10-31 00:12] VITALS: BP 123/70; TEMP 97.8; O2SAT 93
[2022-10-31] MEDS: ACETAMINOPHEN TAB 650MG DOSE (2X325MG) PO PRN ×2 (01:06→10:25)
[2022-10-31 03:58] VITALS: BP 120/74; TEMP 97.8; O2SAT 95
[2022-10-31 07:04] LABS: BASO % 0.2 % (0.0-1.0); EOS % 0.1 % (0.0-3.0); HEMATOCRIT 28.5 % (36.0-47.0); HEMOGLOBIN 9.2 g/dl (12.0-15.5); LYMPH # 2.1 10^3/uL (1.5-5.0); LYMPH % 14.9 % (24.0-44.0); MEAN CORPUSCULAR HEMOGLOBIN 32.9 pg (27.0-33.0); MEAN CORPUSCULAR HGB CONC 32.3 g/dl (32.0-36.5); MEAN CORPUSCULAR VOLUME 101.8 fl (80.0-96.0); MONO % 11.3 % (2.0-8.0); NEUTROPHILS # 10.2 10^3/uL (1.5-8.5); PLATELET COUNT, AUTOMATED 200 10^3/uL (150-450)
[2022-10-31 07:27] VITALS: BP 126/71; TEMP 98; O2SAT 91
[2022-10-31 07:42] LABS: ALBUMIN 2.5 G/DL (3.2-5.2); ALKALINE PHOSPHATASE 83 U/L (46-116); ALT/SGPT 25 U/L (7.0-40); AST/SGOT 50 U/L (<34); BILIRUBIN,TOTAL 0.8 MG/DL (0.3-1.2); BLOOD UREA NITROGEN 17 MG/DL (9-23); CALCIUM LEVEL 7.8 MG/DL (8.3-10.6); CARBON DIOXIDE LEVEL 30 MMOL/L (20-31); CHLORIDE LEVEL 102 MMOL/L (98-107); CREATININE FOR GFR 0.44 MG/DL (0.55-1.30); GLOMERULAR FILTRATION RATE > 60.0 (>39); GLUCOSE, FASTING 87 MG/DL (74-106); MAGNESIUM LEVEL 1.8 MG/DL (1.8-2.4); SODIUM LEVEL 137 MMOL/L (136-145); TOTAL PROTEIN 4.8 G/DL (5.7-8.2)
[2022-10-31 07:51] LABS: MONO # 1.6 10^3/uL (0.0-0.8)
[2022-10-31] MEDS: APIXABAN 5 MG TAB (ELIQUIS) PO SCH ×2 (08:53→20:42)
[2022-10-31] MEDS: FUROSEMIDE 20 MG TAB PO SCH (08:53)
[2022-10-31] MEDS: FERROUS GLUCONATE 324 MG TAB PO SCH ×2 (08:53→20:42)
[2022-10-31] MEDS: METOPROLOL TART 25 MG TABLET PO SCH ×2 (08:54→20:43)
[2022-10-31] MEDS: MAGNESIUM OXIDE 400MG TAB (MAG-OX) PO SCH (08:55)
[2022-10-31 12:25] VITALS: BP 106/64; TEMP 98.3; O2SAT 92
[2022-10-31 20:40] VITALS: BP 138/74; TEMP 97.8; O2SAT 98
[2022-10-31] MEDS: ATORVASTATIN 20 MG TAB PO SCH (20:42)
[2022-10-31] MEDS: ASPIRIN 81MG ENTERIC TABLET PO SCH (20:42)
[2022-10-31] MEDS: DULoxetine 20MG CAP (CYMBALTA) PO SCH (20:42)
[2022-10-31] MEDS: FAMOTIDINE 20 MG TAB PO SCH (20:43)
[2022-10-31 23:47] VITALS: BP 109/75; TEMP 98.1; O2SAT 97
[2022-11-01] VITALS (7 sets, daily range): BP systolic 133–152; BP diastolic 85–93; TEMP 97.8–97.9; O2SAT 84–98
[2022-11-01] MEDS: ACETAMINOPHEN TAB 650MG DOSE (2X325MG) PO PRN ×3 (00:09→20:29)
[2022-11-01 06:00] LABS: BASO % 0.2 % (0.0-1.0); EOS % 0.2 % (0.0-3.0); HEMATOCRIT 29.4 % (36.0-47.0); HEMOGLOBIN 9.5 g/dl (12.0-15.5); LYMPH # 1.7 10^3/uL (1.5-5.0); LYMPH % 13.4 % (24.0-44.0); MEAN CORPUSCULAR HEMOGLOBIN 32.5 pg (27.0-33.0); MEAN CORPUSCULAR HGB CONC 32.3 g/dl (32.0-36.5); MEAN CORPUSCULAR VOLUME 100.7 fl (80.0-96.0); MONO # 1.5 10^3/uL (0.0-0.8); MONO % 12.3 % (2.0-8.0); NEUTROPHILS % 73.3 % (36.0-66.0); PLATELET COUNT, AUTOMATED 227 10^3/uL (150-450); RED BLOOD COUNT 2.92 10^6/uL (4.00-5.40); WHITE BLOOD COUNT 12.3 10^3/uL (4.0-10.0)
[2022-11-01 06:15] LABS: ALBUMIN 2.6 G/DL (3.2-5.2); ALKALINE PHOSPHATASE 100 U/L (46-116); ALT/SGPT 35 U/L (7.0-40); AST/SGOT 64 U/L (<34); BILIRUBIN,TOTAL 1.1 MG/DL (0.3-1.2); BLOOD UREA NITROGEN 12 MG/DL (9-23); CALCIUM LEVEL 8.1 MG/DL (8.3-10.6); CARBON DIOXIDE LEVEL 30 MMOL/L (20-31); CHLORIDE LEVEL 103 MMOL/L (98-107); CREATININE FOR GFR 0.39 MG/DL (0.55-1.30); GLOMERULAR FILTRATION RATE > 60.0 (>39); GLUCOSE, FASTING 92 MG/DL (74-106); MAGNESIUM LEVEL 1.7 MG/DL (1.8-2.4); POTASSIUM SERUM 4.2 MMOL/L (3.5-5.1); SODIUM LEVEL 138 MMOL/L (136-145); TOTAL PROTEIN 5.1 G/DL (5.7-8.2)
[2022-11-01] MEDS: METOPROLOL TART 25 MG TABLET PO SCH ×2 (08:29→20:29)
[2022-11-01] MEDS: APIXABAN 5 MG TAB (ELIQUIS) PO SCH ×2 (08:29→20:29)
[2022-11-01] MEDS: FERROUS GLUCONATE 324 MG TAB PO SCH ×2 (08:29→20:29)
[2022-11-01] MEDS: FUROSEMIDE 20 MG TAB PO SCH (08:29)
[2022-11-01] MEDS ORDERED: PERCOCET 5MG/325MG TAB PO PRN (16:25)
[2022-11-01] MEDS ORDERED: FUROSEMIDE 40 MG TAB PO ONE (16:30)
[2022-11-01] MEDS: DULoxetine 20MG CAP (CYMBALTA) PO SCH (20:28)
[2022-11-01] MEDS: ASPIRIN 81MG ENTERIC TABLET PO SCH (20:29)
[2022-11-01] MEDS: ATORVASTATIN 20 MG TAB PO SCH (20:29)
[2022-11-01] MEDS: FAMOTIDINE 20 MG TAB PO SCH (20:29)
[2022-11-01] MEDS: SYMBICORT 80/4.5MCG INHALER 6GM INH SCH (20:40)
[2022-11-02 05:30] VITALS: BP 149/87; TEMP 98.2; O2SAT 95
[2022-11-02 06:22] LABS: ALBUMIN 2.6 G/DL (3.2-5.2); ALKALINE PHOSPHATASE 108 U/L (46-116); ALT/SGPT 35 U/L (7.0-40); AST/SGOT 47 U/L (<34); BILIRUBIN,TOTAL 1.4 MG/DL (0.3-1.2); BLOOD UREA NITROGEN 14 MG/DL (9-23); CARBON DIOXIDE LEVEL 32 MMOL/L (20-31); CHLORIDE LEVEL 99 MMOL/L (98-107); CREATININE FOR GFR 0.45 MG/DL (0.55-1.30); GLOMERULAR FILTRATION RATE > 60.0 (>39); GLUCOSE, FASTING 83 MG/DL (74-106); MAGNESIUM LEVEL 1.7 MG/DL (1.8-2.4); SODIUM LEVEL 138 MMOL/L (136-145); TOTAL PROTEIN 5.2 G/DL (5.7-8.2)
[2022-11-02 07:08] LABS: BASO % 0.4 % (0.0-1.0); EOS # 0.1 10^3/uL (0.0-0.5); EOS % 0.8 % (0.0-3.0); HEMATOCRIT 31.7 % (36.0-47.0); HEMOGLOBIN 10.3 g/dl (12.0-15.5); LYMPH # 1.8 10^3/uL (1.5-5.0); LYMPH % 16.5 % (24.0-44.0); MEAN CORPUSCULAR HEMOGLOBIN 32.6 pg (27.0-33.0); MEAN CORPUSCULAR HGB CONC 32.5 g/dl (32.0-36.5); MEAN CORPUSCULAR VOLUME 100.3 fl (80.0-96.0); MONO # 1.3 10^3/uL (0.0-0.8); MONO % 12.1 % (2.0-8.0); NEUTROPHILS # 7.4 10^3/uL (1.5-8.5); NEUTROPHILS % 69.7 % (36.0-66.0); PLATELET COUNT, AUTOMATED 254 10^3/uL (150-450); RED BLOOD COUNT 3.16 10^6/uL (4.00-5.40); WHITE BLOOD COUNT 10.6 10^3/uL (4.0-10.0)
[2022-11-02] MEDS: SYMBICORT 80/4.5MCG INHALER 6GM INH SCH (07:31)
[2022-11-02 09:32] VITALS: O2SAT 94
[2022-11-02] MEDS: MAGNESIUM OXIDE 400MG TAB (MAG-OX) PO SCH (09:33)
[2022-11-02] MEDS: APIXABAN 5 MG TAB (ELIQUIS) PO SCH (09:33)
[2022-11-02 09:34] VITALS: BP 143/87
[2022-11-02] MEDS: METOPROLOL TART 25 MG TABLET PO SCH (09:34)
[2022-11-02] MEDS: FERROUS GLUCONATE 324 MG TAB PO SCH (09:34)
[2022-11-02] MEDS: ACETAMINOPHEN TAB 650MG DOSE (2X325MG) PO PRN (09:34)
[2022-11-02] MEDS: FUROSEMIDE 20 MG TAB PO SCH (09:34)
[2022-11-02 09:37] VITALS: O2SAT 92
== END 2022-11-02 12:54 | DRG 480 ==
LOC: M ED 02:09 → M ED INP 05:29 → M PCU 06:14 → M MSPAV 11-01 00:40
PROVIDERS: ADMIT Family Medicine; ATTEND Internal Medicine
PROC: 0QS606Z Reposition Right Upper Femur with Intramedullary Internal Fixation Device, Open Approach (ICD-10-PCS; principal; 2022-10-29 12:00)
DX: S72.141A Displaced intertrochanteric fracture of right femur, initial encounter for closed fracture (principal); J96.01 Acute respiratory failure with hypoxia; G93.41 Metabolic encephalopathy; D62 Acute posthemorrhagic anemia; I47.20 Ventricular tachycardia, unspecified; J98.11 Atelectasis; I48.91 Unspecified atrial fibrillation; M16.11 Unilateral primary osteoarthritis, right hip; M81.0 Age-related osteoporosis without current pathological fracture; E78.5 Hyperlipidemia, unspecified; E55.9 Vitamin D deficiency, unspecified; M54.31 Sciatica, right side; Z90.49 Acquired absence of other specified parts of digestive tract; Z85.038 Personal history of other malignant neoplasm of large intestine; Z98.41 Cataract extraction status, right eye; Z98.42 Cataract extraction status, left eye; F17.200 Nicotine dependence, unspecified, uncomplicated; D72.829 Elevated white blood cell count, unspecified; Z79.01 Long term (current) use of anticoagulants; Z79.82 Long term (current) use of aspirin; Z79.899 Other long term (current) drug therapy; R47.9 Unspecified speech disturbances; J44.9 Chronic obstructive pulmonary disease, unspecified; R91.1 Solitary pulmonary nodule; W18.30XA Fall on same level, unspecified, initial encounter; Y92.010 Kitchen of single-family (private) house as the place of occurrence of the external cause; Y93.E9 Activity, other interior property and clothing maintenance; Y99.8 Other external cause status

== ENCOUNTER → 2022-11-23 | Outpatient (CLI) | payer MEDICARE, BC ==
[~2022-11-23] MED LIST changes: +ASPI81TA24 PO; +ASPI81TA26 PO; +DULO1CAP4 PO; +FAMO1TAB11 PO; +FERR324T21 PO; +FURO20TA2 PO; +MAGN500T12 PO; +METO25TA4 PO
== END ==
LOC: M SOG 08:07
PROVIDERS: ATTEND Orthopaedic Surgery
DX: S72.141D Displaced intertrochanteric fracture of right femur, subsequent encounter for closed fracture with routine healing (principal); W18.30XD Fall on same level, unspecified, subsequent encounter

== ENCOUNTER → 2022-12-13 | Outpatient (REF) | payer MEDICARE, BC ==
[~2022-12-13] MED LIST changes: -CELE1CAP7 PO; +CELE1CAP8 PO
[2022-12-13 19:12] LABS: APPEARANCE, URINE CLOUDY (CLEAR); BACTERIA, URINE AUTO NEGATIVE (NEGATIVE); BILIRUBIN, URINE AUTO NEGATIVE (NEGATIVE); BLOOD, URINE BLOOD 2+ (NEGATIVE); CALCIUM OXALATE CRYSTALS SMALL; COLOR, URINE AMBER (YELLOW); GLUCOSE, URINE (UA) AUTO NEGATIVE (NEGATIVE); KETONE, URINE AUTO TRACE mg/dL (NEGATIVE); LEUKOCYTE ESTERASE, URINE AUTO 2+ (NEGATIVE); MUCUS, URINE MODERATE (NEGATIVE); NITRITE, URINE AUTO NEGATIVE (NEGATIVE); PROTEIN, URINE AUTO 2+ mg/dL (NEGATIVE); RBC, URINE AUTO 28 /HPF (0-3); SPECIFIC GRAVITY URINE AUTO 1.027 (1.002-1.035); SQUAMOUS EPITHELIAL CELL UR AU 5 /HPF (0-6); WBC, URINE AUTO TNTC /HPF (0-3)
== END ==
LOC: M LAB REF 16:44
PROVIDERS: ATTEND Family Medicine
DX: N39.0 Urinary tract infection, site not specified (principal)

== ENCOUNTER → 2023-03-07 | Outpatient (CLI) | payer MEDICARE, BC ==
[~2023-03-07] MED LIST changes: -CELE1CAP8 PO; +CELE1CAP99 PO; -FLUT50SP17 NARES; +FLUTISP NARES; +ISOVUE-370 76% 100ML VIAL As Ordered ONE
[2023-03-07 14:38] LABS: BLOOD UREA NITROGEN 17 MG/DL (9-23); CALCIUM LEVEL 9.7 MG/DL (8.3-10.6); CARBON DIOXIDE LEVEL 30 MMOL/L (20-31); CHLORIDE LEVEL 107 MMOL/L (98-107); CREATININE FOR GFR 0.46 MG/DL (0.55-1.30); GLOMERULAR FILTRATION RATE > 60.0 (>39); GLUCOSE, FASTING 83 MG/DL (74-106); POTASSIUM SERUM 4.2 MMOL/L (3.5-5.1); SODIUM LEVEL 144 MMOL/L (136-145)
[2023-03-07 14:40] LABS: THYROID STIMULATING HORMONE 3.105 uIU/ML (0.55-4.78)
== END ==
LOC: M RAD 12:45
PROVIDERS: ATTEND Nurse Practitioner Adult Health
DX: H53.2 Diplopia (principal)
CPT/HCPCS: 36415; 70470; 80048; 84443; Q9967

== ENCOUNTER → 2023-03-15 | Outpatient (CLI) | payer MEDICARE, BC ==
[~2023-03-15] MED LIST changes: -ISOVUE-370 76% 100ML VIAL As Ordered ONE
== END ==
LOC: M SOG 14:34
PROVIDERS: ATTEND Physician Assistant
DX: S72.141D Displaced intertrochanteric fracture of right femur, subsequent encounter for closed fracture with routine healing (principal); M25.561 Pain in right knee; W18.30XD Fall on same level, unspecified, subsequent encounter

== ENCOUNTER → 2023-05-23 | Outpatient (REF) | payer MEDICARE, BC | LOC: M LAB REF 16:31 | PROVIDERS: ATTEND Family Medicine | DX: C18.2 Malignant neoplasm of ascending colon (principal); Z86.73 Personal history of transient ischemic attack (TIA), and cerebral infarction without residual deficits; D50.9 Iron deficiency anemia, unspecified ==

== ENCOUNTER 2023-07-05 09:30 | Inpatient (IN) | payer MEDICARE, BC ==
[2023-07-05 10:36] LABS: BASO % 0.2 % (0.0-1.0); HEMATOCRIT 50.7 % (36.0-47.0); LYMPH # 0.8 10^3/uL (1.5-5.0); LYMPH % 8.1 % (24.0-44.0); MEAN CORPUSCULAR HEMOGLOBIN 32.8 pg (27.0-33.0); MEAN CORPUSCULAR HGB CONC 34.5 g/dl (32.0-36.5); MEAN CORPUSCULAR VOLUME 95.1 fl (80.0-96.0); NEUTROPHILS # 8.1 10^3/uL (1.5-8.5); NEUTROPHILS % 81.3 % (36.0-66.0); PLATELET COUNT, AUTOMATED 189 10^3/uL (150-450); RED BLOOD COUNT 5.33 10^6/uL (4.00-5.40)
[2023-07-05 10:40] LABS: HEMOGLOBIN 17.5 g/dl (12.0-15.5)
[2023-07-05 10:58] LABS: ALBUMIN 3.5 G/DL (3.2-5.2); ALKALINE PHOSPHATASE 155 U/L (46-116); ALT/SGPT 39 U/L (7.0-40); AST/SGOT 85 U/L (<34); BILIRUBIN,DIRECT 0.8 MG/DL (<0.4); BILIRUBIN,TOTAL 1.9 MG/DL (0.3-1.2); BLOOD UREA NITROGEN 13 MG/DL (9-23); CALCIUM LEVEL 9.3 MG/DL (8.3-10.6); CARBON DIOXIDE LEVEL 23 MMOL/L (20-31); CHLORIDE LEVEL 103 MMOL/L (98-107); CREATININE FOR GFR 0.41 MG/DL (0.55-1.30); GLOMERULAR FILTRATION RATE > 60.0 (>39); GLUCOSE, FASTING 103 MG/DL (74-106); POTASSIUM SERUM 3.6 MMOL/L (3.5-5.1); SODIUM LEVEL 139 MMOL/L (136-145); TOTAL PROTEIN 6.9 G/DL (5.7-8.2)
[2023-07-05 11:14] LABS: VENOUS HCO3 22.7 MMOL/L (23.0-27.0); VENOUS O2 SATURATION 37.1 % (60.0-80.0); VENOUS PARTIAL PRESSURE CO2 39.3 mmHg (38.0-50.0); VENOUS PARTIAL PRESSURE O2 23.1 mmHg (30.0-50.0); VENOUS TOTAL CO2 23.9 MMOL/L (24.0-28.0)
[2023-07-05 11:24] LABS: CPK CREATINE PHOSPHOKINASE 1786 U/L (34-145)
[2023-07-05] MEDS: METOPROLOL 5 MG/5 ML VIAL IV SCH (11:33)
[2023-07-05] MEDS: METOPROLOL TART 25 MG TABLET PO ONE (11:34)
[2023-07-05] MEDS: APIXABAN 5 MG TAB (ELIQUIS) PO ONE (11:50)
[2023-07-05] MEDS ORDERED: HOME MED LIST COMPLETE! XX SCH (12:15)
[2023-07-05] MEDS: NS 1,000 ML IV SCH ×2 (13:18→14:41)
[2023-07-05] MEDS ORDERED: MOM 30ML SUSPENSION UDC PO PRN (13:40)
[2023-07-05] MEDS ORDERED: MAALOX 30 ML SUSP *UDC PO PRN (13:40)
[2023-07-05 14:34] LABS: PROCALCITONIN 0.08 ng/ml
[2023-07-05 18:58] VITALS: BP 129/93; TEMP 97.3; O2SAT 91
[2023-07-05 23:02] VITALS: BP 163/96; TEMP 97.2; O2SAT 94
[2023-07-05] MEDS: ATORVASTATIN 20 MG TAB PO SCH (23:05)
[2023-07-05] MEDS: APIXABAN 5 MG TAB (ELIQUIS) PO SCH (23:05)
[2023-07-05] MEDS: DOCUSATE SODIUM 100MG CAPSULE PO SCH (23:05)
[2023-07-05] MEDS: METOPROLOL TART 25 MG TABLET PO SCH (23:06)
[2023-07-05] MEDS: MORPHINE 2 MG/ML 1ML VIAL IV PRN (23:06)
[2023-07-05] MEDS: DULoxetine 20MG CAP (CYMBALTA) PO SCH (23:10)
[2023-07-06 04:28] VITALS: BP 138/100; TEMP 97.1; O2SAT 91
[2023-07-06 06:04] LABS: BASO % 0.4 % (0.0-1.0); EOS % 0.1 % (0.0-3.0); HEMATOCRIT 47.7 % (36.0-47.0); HEMOGLOBIN 15.9 g/dl (12.0-15.5); LYMPH # 1.8 10^3/uL (1.5-5.0); MEAN CORPUSCULAR HEMOGLOBIN 32.5 pg (27.0-33.0); MEAN CORPUSCULAR HGB CONC 33.3 g/dl (32.0-36.5); MEAN CORPUSCULAR VOLUME 97.5 fl (80.0-96.0); MONO # 1.2 10^3/uL (0.0-0.8); MONO % 12.5 % (2.0-8.0); NEUTROPHILS # 6.5 10^3/uL (1.5-8.5); NEUTROPHILS % 67.8 % (36.0-66.0); PLATELET COUNT, AUTOMATED 182 10^3/uL (150-450); RED BLOOD COUNT 4.89 10^6/uL (4.00-5.40); WHITE BLOOD COUNT 9.5 10^3/uL (4.0-10.0)
[2023-07-06 06:26] LABS: BLOOD UREA NITROGEN 20 MG/DL (9-23); CALCIUM LEVEL 8.5 MG/DL (8.3-10.6); CARBON DIOXIDE LEVEL 26 MMOL/L (20-31); CHLORIDE LEVEL 107 MMOL/L (98-107); CREATININE FOR GFR 0.45 MG/DL (0.55-1.30); GLOMERULAR FILTRATION RATE > 60.0 (>39); GLUCOSE, FASTING 94 MG/DL (74-106); MAGNESIUM LEVEL 1.8 MG/DL (1.8-2.4); POTASSIUM SERUM 3.7 MMOL/L (3.5-5.1); SODIUM LEVEL 138 MMOL/L (136-145)
[2023-07-06 07:39] VITALS: BP 138/93; TEMP 97.2; O2SAT 92
[2023-07-06 09:24] VITALS: BP 146/88
[2023-07-06] MEDS: FAMOTIDINE 20 MG TAB PO SCH (09:32)
[2023-07-06] MEDS: ACETAMINOPHEN TAB 650MG DOSE (2X325MG) PO PRN (09:33)
[2023-07-06 11:40] VITALS: BP 113/71; TEMP 97.6; O2SAT 93
[2023-07-06 16:00] VITALS: BP 105/63; TEMP 97.2; O2SAT 92
[2023-07-06 19:33] VITALS: BP 133/79; TEMP 97.5; O2SAT 95
[2023-07-07] VITALS (8 sets, daily range): BP systolic 111–152; BP diastolic 67–96; TEMP 96.7–97.8; O2SAT 92–96
[2023-07-07 06:06] LABS: BASO % 0.4 % (0.0-1.0); EOS % 0.6 % (0.0-3.0); HEMATOCRIT 46.6 % (36.0-47.0); LYMPH # 1.9 10^3/uL (1.5-5.0); LYMPH % 27.8 % (24.0-44.0); MEAN CORPUSCULAR HEMOGLOBIN 32.3 pg (27.0-33.0); MEAN CORPUSCULAR HGB CONC 32.2 g/dl (32.0-36.5); MEAN CORPUSCULAR VOLUME 100.2 fl (80.0-96.0); MONO # 0.9 10^3/uL (0.0-0.8); MONO % 12.6 % (2.0-8.0); NEUTROPHILS # 4.1 10^3/uL (1.5-8.5); NEUTROPHILS % 58.3 % (36.0-66.0); PLATELET COUNT, AUTOMATED 146 10^3/uL (150-450); RED BLOOD COUNT 4.65 10^6/uL (4.00-5.40)
[2023-07-07 06:27] LABS: BLOOD UREA NITROGEN 17 MG/DL (9-23); CARBON DIOXIDE LEVEL 26 MMOL/L (20-31); CHLORIDE LEVEL 110 MMOL/L (98-107); CREATININE FOR GFR 0.48 MG/DL (0.55-1.30); GLOMERULAR FILTRATION RATE > 60.0 (>39); GLUCOSE, FASTING 77 MG/DL (74-106); MAGNESIUM LEVEL 1.6 MG/DL (1.8-2.4); POTASSIUM SERUM 3.6 MMOL/L (3.5-5.1); SODIUM LEVEL 143 MMOL/L (136-145)
[2023-07-07 06:28] LABS: CPK CREATINE PHOSPHOKINASE 290 U/L (34-145)
[2023-07-07] MEDS: MAG SULF 1GM/100ML (MAG RUN) 1 GM in IV 1 EA IV SCH (09:37)
[2023-07-08] VITALS (10 sets, daily range): BP systolic 118–170; BP diastolic 82–108; TEMP 97.1–98.8; O2SAT 93–97
[2023-07-08 05:58] LABS: BASO % 0.3 % (0.0-1.0); EOS # 0.1 10^3/uL (0.0-0.5); EOS % 0.9 % (0.0-3.0); HEMATOCRIT 45.7 % (36.0-47.0); HEMOGLOBIN 14.9 g/dl (12.0-15.5); LYMPH # 1.8 10^3/uL (1.5-5.0); LYMPH % 26.8 % (24.0-44.0); MEAN CORPUSCULAR HEMOGLOBIN 31.8 pg (27.0-33.0); MEAN CORPUSCULAR HGB CONC 32.6 g/dl (32.0-36.5); MEAN CORPUSCULAR VOLUME 97.4 fl (80.0-96.0); MONO # 0.8 10^3/uL (0.0-0.8); MONO % 12.4 % (2.0-8.0); NEUTROPHILS # 3.9 10^3/uL (1.5-8.5); NEUTROPHILS % 59.1 % (36.0-66.0); PLATELET COUNT, AUTOMATED 159 10^3/uL (150-450); RED BLOOD COUNT 4.69 10^6/uL (4.00-5.40); WHITE BLOOD COUNT 6.6 10^3/uL (4.0-10.0)
[2023-07-08 06:24] LABS: BLOOD UREA NITROGEN 14 MG/DL (9-23); CALCIUM LEVEL 7.9 MG/DL (8.3-10.6); CARBON DIOXIDE LEVEL 27 MMOL/L (20-31); CHLORIDE LEVEL 109 MMOL/L (98-107); CREATININE FOR GFR 0.46 MG/DL (0.55-1.30); GLOMERULAR FILTRATION RATE > 60.0 (>39); GLUCOSE, FASTING 83 MG/DL (74-106); MAGNESIUM LEVEL 1.8 MG/DL (1.8-2.4); POTASSIUM SERUM 3.4 MMOL/L (3.5-5.1); SODIUM LEVEL 142 MMOL/L (136-145)
[2023-07-08] MEDS: POTASSIUM CHLORIDE 10MEQ SR TABLET PO ONE (09:22)
[2023-07-08] MEDS: LIDOCAINE 5% (LIDODERM) PATCH TD SCH (18:07)
[2023-07-08] MEDS: hydrALAZINE 20MG/ML 1ML VIAL IV PRN (18:07)
[2023-07-09 04:01] VITALS: BP 132/80; TEMP 97.8; O2SAT 95
[2023-07-09 04:44] LABS: BASO % 0.4 % (0.0-1.0); EOS # 0.1 10^3/uL (0.0-0.5); HEMOGLOBIN 15.8 g/dl (12.0-15.5); LYMPH % 29.7 % (24.0-44.0); MEAN CORPUSCULAR HEMOGLOBIN 32.2 pg (27.0-33.0); MEAN CORPUSCULAR HGB CONC 32.9 g/dl (32.0-36.5); MONO # 0.9 10^3/uL (0.0-0.8); MONO % 13.2 % (2.0-8.0); NEUTROPHILS # 3.8 10^3/uL (1.5-8.5); NEUTROPHILS % 55.4 % (36.0-66.0); PLATELET COUNT, AUTOMATED 174 10^3/uL (150-450); WHITE BLOOD COUNT 6.9 10^3/uL (4.0-10.0)
[2023-07-09 05:07] LABS: BLOOD UREA NITROGEN 10 MG/DL (9-23); CALCIUM LEVEL 8.4 MG/DL (8.3-10.6); CARBON DIOXIDE LEVEL 27 MMOL/L (20-31); CHLORIDE LEVEL 109 MMOL/L (98-107); CREATININE FOR GFR 0.39 MG/DL (0.55-1.30); GLOMERULAR FILTRATION RATE > 60.0 (>39); GLUCOSE, FASTING 86 MG/DL (74-106); MAGNESIUM LEVEL 1.7 MG/DL (1.8-2.4); POTASSIUM SERUM 3.9 MMOL/L (3.5-5.1); SODIUM LEVEL 142 MMOL/L (136-145)
[2023-07-09 07:51] VITALS: BP 146/80; TEMP 97.7; O2SAT 96
[2023-07-09] MEDS: MAG SULF 1GM/100ML (MAG RUN) 1 GM in IV 1 EA IV ONE (08:10)
[2023-07-09] MEDS: LIDOCAINE 5% (LIDODERM) PATCH TD SCH (08:11)
[2023-07-09] MEDS: amLODIPine 5 MG TAB PO SCH (10:29)
[2023-07-09 11:53] VITALS: BP 114/77; TEMP 97.1; O2SAT 95
[2023-07-09 18:53] VITALS: BP 120/73; TEMP 97.6; O2SAT 95
[2023-07-10 00:44] VITALS: BP 141/91; TEMP 98; O2SAT 95
[2023-07-10 04:13] LABS: BASO % 0.3 % (0.0-1.0); EOS # 0.1 10^3/uL (0.0-0.5); EOS % 1.1 % (0.0-3.0); HEMATOCRIT 45.9 % (36.0-47.0); HEMOGLOBIN 15.2 g/dl (12.0-15.5); LYMPH # 1.5 10^3/uL (1.5-5.0); LYMPH % 21.8 % (24.0-44.0); MEAN CORPUSCULAR HEMOGLOBIN 32.3 pg (27.0-33.0); MEAN CORPUSCULAR HGB CONC 33.1 g/dl (32.0-36.5); MEAN CORPUSCULAR VOLUME 97.5 fl (80.0-96.0); MONO # 0.8 10^3/uL (0.0-0.8); MONO % 11.3 % (2.0-8.0); NEUTROPHILS # 4.5 10^3/uL (1.5-8.5); NEUTROPHILS % 65.1 % (36.0-66.0); PLATELET COUNT, AUTOMATED 193 10^3/uL (150-450); RED BLOOD COUNT 4.71 10^6/uL (4.00-5.40)
[2023-07-10 05:36] LABS: BLOOD UREA NITROGEN 16 MG/DL (9-23); CALCIUM LEVEL 8.4 MG/DL (8.3-10.6); CARBON DIOXIDE LEVEL 27 MMOL/L (20-31); CHLORIDE LEVEL 109 MMOL/L (98-107); CREATININE FOR GFR 0.44 MG/DL (0.55-1.30); GLOMERULAR FILTRATION RATE > 60.0 (>39); GLUCOSE, FASTING 92 MG/DL (74-106); MAGNESIUM LEVEL 1.6 MG/DL (1.8-2.4); POTASSIUM SERUM 3.6 MMOL/L (3.5-5.1); SODIUM LEVEL 142 MMOL/L (136-145)
[2023-07-10 08:58] VITALS: BP 165/98; TEMP 97.5; O2SAT 93
[2023-07-10] MEDS: MAGNESIUM GLUCONATE 500 MG TAB PO SCH (09:46)
[2023-07-10] MEDS: MAG SULF 1GM/100ML (MAG RUN) 1 GM in IV 1 EA IV SCH (09:48)
[2023-07-10 12:00] VITALS: BP 125/81; TEMP 96.8; O2SAT 96
[2023-07-11 04:05] VITALS: BP 125/86; TEMP 97.1; O2SAT 97
[2023-07-11 05:08] LABS: BASO % 0.6 % (0.0-1.0); EOS # 0.1 10^3/uL (0.0-0.5); EOS % 1.5 % (0.0-3.0); HEMATOCRIT 44.7 % (36.0-47.0); HEMOGLOBIN 14.6 g/dl (12.0-15.5); LYMPH # 1.9 10^3/uL (1.5-5.0); LYMPH % 29.4 % (24.0-44.0); MEAN CORPUSCULAR HEMOGLOBIN 31.7 pg (27.0-33.0); MEAN CORPUSCULAR HGB CONC 32.7 g/dl (32.0-36.5); MEAN CORPUSCULAR VOLUME 97.2 fl (80.0-96.0); MONO # 0.9 10^3/uL (0.0-0.8); MONO % 13.9 % (2.0-8.0); NEUTROPHILS # 3.5 10^3/uL (1.5-8.5); NEUTROPHILS % 54.3 % (36.0-66.0); PLATELET COUNT, AUTOMATED 218 10^3/uL (150-450); WHITE BLOOD COUNT 6.5 10^3/uL (4.0-10.0)
[2023-07-11 05:33] LABS: BLOOD UREA NITROGEN 17 MG/DL (9-23); CALCIUM LEVEL 8.6 MG/DL (8.3-10.6); CARBON DIOXIDE LEVEL 29 MMOL/L (20-31); CHLORIDE LEVEL 109 MMOL/L (98-107); CREATININE FOR GFR 0.44 MG/DL (0.55-1.30); GLOMERULAR FILTRATION RATE > 60.0 (>39); GLUCOSE, FASTING 87 MG/DL (74-106); POTASSIUM SERUM 3.9 MMOL/L (3.5-5.1); SODIUM LEVEL 144 MMOL/L (136-145)
[2023-07-11 08:10] VITALS: BP 157/87; TEMP 97; O2SAT 95
[2023-07-11 09:21] VITALS: BP 157/87
[2023-07-11] MEDS ORDERED: LIDO5TD TD (12:30)
[2023-07-11] MEDS ORDERED: MAGN50TA PO (12:30)
== END 2023-07-11 14:46 | DRG 558 ==
LOC: M ED 09:30 → EDBD 09:30 → M ED INP 13:39 → M PCU 18:46
PROVIDERS: ADMIT Internal Medicine; ATTEND Internal Medicine Nephrology
DX: M62.82 Rhabdomyolysis (principal); I48.91 Unspecified atrial fibrillation; E78.5 Hyperlipidemia, unspecified; M16.11 Unilateral primary osteoarthritis, right hip; M81.0 Age-related osteoporosis without current pathological fracture; E55.9 Vitamin D deficiency, unspecified; M54.30 Sciatica, unspecified side; I10 Essential (primary) hypertension; I27.20 Pulmonary hypertension, unspecified; R26.89 Other abnormalities of gait and mobility; D75.1 Secondary polycythemia; K21.9 Gastro-esophageal reflux disease without esophagitis; F17.200 Nicotine dependence, unspecified, uncomplicated; L89.152 Pressure ulcer of sacral region, stage 2; L89.222 Pressure ulcer of left hip, stage 2; Z66 Do not resuscitate; Z98.41 Cataract extraction status, right eye; Z98.42 Cataract extraction status, left eye; Z90.49 Acquired absence of other specified parts of digestive tract; Z86.73 Personal history of transient ischemic attack (TIA), and cerebral infarction without residual deficits; Z85.038 Personal history of other malignant neoplasm of large intestine; Z79.01 Long term (current) use of anticoagulants; Z79.899 Other long term (current) drug therapy; Z87.81 Personal history of (healed) traumatic fracture

== ENCOUNTER → 2023-07-31 | Outpatient (REF) | payer MEDICARE, BC ==
[~2023-07-31] MED LIST changes: +LIDO5TD TD
== END ==
LOC: M LAB REF 16:49
PROVIDERS: ATTEND Family Medicine
DX: C18.2 Malignant neoplasm of ascending colon (principal)